=== PATIENT | female | born 1960 | race Two or more races ===

== ENCOUNTER 2017-10-19 09:42 | Inpatient (IN) | payer BC, OTHER ==
[~2017-10-19] VITALS: Ht 149.9 cm; Wt 75.1 kg
[~2017-10-19 09:42] MED LIST: LISI-285 PO
[2017-10-19] MEDS ORDERED: SODIUM CHLORIDE 0.9% 1,000 ML IVB ONE (09:48)
[2017-10-19] MEDS ORDERED: ONDANSETRON HCL 4 MG/2 ML VIAL IV ONE ×2 (10:00→10:15)
[2017-10-19] MEDS ORDERED: SODIUM CHLORIDE 0.9% 1,000 ML IV ONE (10:06)
[2017-10-19] MEDS ORDERED: MORPHINE SULF INJ 2 MG/ML SYRINGE 1ML IV ONE (10:15)
[2017-10-19 10:21] LABS: Basophils # (auto) 0.1 uL; Basophils % (auto) 0.9 % (0.0-2.0); Eosinophils # (auto) 0.2 uL; Eosinophils % (auto) 1.7 % (0.0-7.0); Hematocrit 45.8 % (36.0-46.0); Hemoglobin 15.7 g/dL (12.2-16.2); Lymphocytes # (auto) 2.4 uL; Lymphocytes % (auto) 23.6 % (10.0-50.0); Mean Corpuscular Hemoglobin 30.2 pg (28.0-32.0); Mean Corpuscular Hgb Conc. 34.4 g/dL (32.0-36.0); Mean Corpuscular Volume 87.9 fL (80.0-100.0); Mean Platelet Volume 8.6 fL (6.9-10.8); Monocytes # (auto) 0.7 uL; Monocytes % (auto) 6.7 % (0.0-12.0); Neutrophils # (auto) 6.9 uL; Neutrophils % (auto) 67.1 % (37.0-80.0); Nucleated Red Blood Cells % 0.1 %; Platelet Count (auto) 348 10^3/uL (140-450); Red Cell Distribution Width 13.8 % (11.8-14.3); White Blood Cell 10.3 10^3/uL (4.4-10.8)
[2017-10-19 10:50] LABS: Albumin 4.4 g/dL (3.4-5.0); Alkaline Phosphatase 99 U/L (45-117); Amylase 63 U/L (25-115); Anion Gap 8 (5-15); Aspartate Aminotransferase 43 U/L (15-37); BUN/Creatinine Ratio 36.4; Bilirubin, Total 0.9 mg/dL (0.2-1.0); Blood Urea Nitrogen 28 mg/dL (7-18); Calcium 9.1 mg/dL (8.5-10.1); Carbon Dioxide 26 mmol/L (21-32); Chloride 103 mmol/L (98-107); GFR African American 99 mL/min; GFR Non-African American 82 mL/min; Glucose 130 mg/dL (74-106); Potassium 3.7 mmol/L (3.5-5.1); Sodium 137 mmol/L (136-145); Total Protein 8.5 g/dL (6.4-8.2)
[2017-10-19 10:52] LABS: INR 0.98 (0.9-1.15); Partial Thromboplastin Time 24.3 sec (22.64-33.71); Prothrombin Time 10.7 sec (9.37-12.3)
[2017-10-19] MEDS ORDERED: IOHEXOL 300 MG/ML 100ML BOTTLE IJ ONE (10:59)
[2017-10-19] MEDS ORDERED: PROMETHAZINE HCL 25 MG/ML 1ML ONE (12:22)
[2017-10-19] MEDS ORDERED: PROMETHAZINE HCL 25 MG/ML 1ML IV ONE (12:30)
[2017-10-19] MEDS ORDERED: NALBUPHINE HCL 10 MG/1ml INJECTION IV ONE (12:45)
[2017-10-19] MEDS ORDERED: TEMAZEPAM 15 MG CAP PO PRN (13:15)
[2017-10-19] MEDS ORDERED: ACETAMINOPHEN 500 MG TAB PO PRN (13:15)
[2017-10-19] MEDS ORDERED: MORPHINE SULF INJ 2 MG/ML SYRINGE 1ML IV PRN (13:15)
[2017-10-19] MEDS ORDERED: LABETALOL HCL 5 MG/ML ML 20ML VIAL IV PRN (13:15)
[2017-10-19] MEDS ORDERED: NITROGLYCERIN 0.4 MG SL TAB SL PRN (13:15)
[2017-10-19] MEDS ORDERED: LISINOPRIL 5 MG TAB PO ONE (13:15)
[2017-10-19] MEDS ORDERED: PANTOPRAZOLE 40 MG/10 ML VIAL IV ONE (13:15)
[2017-10-19] MEDS: SODIUM CHLORIDE 0.9% 1,000 ML IV SCH ×2 (13:18→23:09)
[2017-10-19] MEDS ORDERED: amLODIPine BESYLATE 5 MG TAB PO ONE (13:30)
[2017-10-19] MEDS: LABETALOL HCL 5 MG/ML ML 20ML VIAL IV PRN ×2 (14:56→16:03)
[2017-10-19] MEDS ORDERED: LACTULOSE 20Gm/30ML SOLN PO PRN (15:45)
[2017-10-19] MEDS ORDERED: ENALAPRILAT 1.25 MG/ML-1ML VIAL IV SCH (16:45)
[2017-10-19] MEDS: ENALAPRILAT 1.25 MG/ML-1ML VIAL IV SCH ×2 (17:01→22:59)
[2017-10-19] MEDS: PROMETHAZINE HCL 25 MG/ML 1ML IV PRN ×2 (18:32→23:01)
[2017-10-19] MEDS: MORPHINE SULF INJ 2 MG/ML SYRINGE 1ML IV PRN ×2 (18:32→22:57)
[2017-10-19 20:00] VITALS: BP 171/92
[2017-10-19 22:00] VITALS: BP 171/92
[2017-10-20] MEDS: LABETALOL HCL 5 MG/ML ML 20ML VIAL IV PRN (02:17)
[2017-10-20] MEDS: PROMETHAZINE HCL 25 MG/ML 1ML IV PRN ×4 (02:55→18:41)
[2017-10-20] MEDS: MORPHINE SULF INJ 2 MG/ML SYRINGE 1ML IV PRN ×4 (02:55→18:41)
[2017-10-20 05:00] VITALS: BP 159/91
[2017-10-20] MEDS: ENALAPRILAT 1.25 MG/ML-1ML VIAL IV SCH ×4 (05:19→23:26)
[2017-10-20 06:42] LABS: Basophils # (auto) 0 uL; Basophils % (auto) 0.1 % (0.0-2.0); Eosinophils # (auto) 0 uL; Hematocrit 39.7 % (36.0-46.0); Hemoglobin 13.4 g/dL (12.2-16.2); Lymphocytes # (auto) 1.3 uL; Lymphocytes % (auto) 12.7 % (10.0-50.0); Mean Corpuscular Hemoglobin 30.2 pg (28.0-32.0); Mean Corpuscular Hgb Conc. 33.6 g/dL (32.0-36.0); Mean Corpuscular Volume 89.7 fL (80.0-100.0); Mean Platelet Volume 8.7 fL (6.9-10.8); Monocytes # (auto) 0.5 uL; Neutrophils # (auto) 8.6 uL; Neutrophils % (auto) 82.2 % (37.0-80.0); Nucleated Red Blood Cells % 0.1 %; Platelet Count (auto) 261 10^3/uL (140-450); Red Cell Distribution Width 13.2 % (11.8-14.3); White Blood Cell 10.5 10^3/uL (4.4-10.8)
[2017-10-20] MEDS ORDERED: MORPHINE SULFATE 4 MG/ML SYRG ONE (06:46)
[2017-10-20 07:01] LABS: Albumin 3.5 g/dL (3.4-5.0); Calcium 8.2 mg/dL (8.5-10.1); Potassium 3.1 mmol/L (3.5-5.1)
[2017-10-20 07:04] LABS: BUN/Creatinine Ratio 46.2
[2017-10-20 07:06] LABS: Bilirubin, Total 0.6 mg/dL (0.2-1.0); Total Protein 7.2 g/dL (6.4-8.2)
[2017-10-20 07:07] LABS: Cholesterol 155 mg/dL (< 200); HDL Cholesterol 45 mg/dL (40-59); LDL Cholesterol 113 mg/dL (< 100); Triglycerides 74 mg/dL (< 150)
[2017-10-20 08:48] VITALS: BP 149/79
[2017-10-20] MEDS: SODIUM CHLORIDE 0.9% 1,000 ML IV SCH ×2 (09:31→18:25)
[2017-10-20] MEDS: PANTOPRAZOLE 40 MG TAB PO SCH (09:32)
[2017-10-20] MEDS: amLODIPine BESYLATE 5 MG TAB PO SCH (09:32)
[2017-10-20] MEDS ORDERED: LISINOPRIL 5 MG TAB PO SCH (10:00)
[2017-10-20 10:48] LABS: Urine Bilirubin Negative (Negative); Urine Blood Negative /uL (Negative); Urine Color Yellow (Yellow); Urine Glucose Normal (Normal); Urine Ketone 2+ (Negative); Urine Mucus FEW (None Seen); Urine Nitrite Negative (Negative); Urine RBC 1 /hpf (0 - 4); Urine Squamous Epithelial Cell FEW /hpf (<5); Urine Urobilinogen Normal (Negative)
[2017-10-20 13:00] VITALS: BP 105/60
[2017-10-20] MEDS ORDERED: POTASSIUM CHL 20 Meq TABLET PO ONE (14:00)
[2017-10-20 16:27] VITALS: BP 129/71
[2017-10-20 20:00] VITALS: BP 114/86
[2017-10-20 22:00] VITALS: BP 114/86
[2017-10-21] VITALS (7 sets, daily range): BP systolic 110–183; BP diastolic 61–92
[2017-10-21] MEDS: SODIUM CHLORIDE 0.9% 1,000 ML IV SCH ×2 (04:54→15:23)
[2017-10-21] MEDS: ENALAPRILAT 1.25 MG/ML-1ML VIAL IV SCH ×5 (04:54→22:42)
[2017-10-21] MEDS: PROMETHAZINE HCL 25 MG/ML 1ML IV PRN ×4 (04:56→22:57)
[2017-10-21] MEDS: MORPHINE SULF INJ 2 MG/ML SYRINGE 1ML IV PRN ×4 (05:52→22:58)
[2017-10-21 06:12] LABS: BUN/Creatinine Ratio 21.2; Calcium 8.6 mg/dL (8.5-10.1); Potassium 3.1 mmol/L (3.5-5.1)
[2017-10-21] MEDS: LABETALOL HCL 5 MG/ML ML 20ML VIAL IV PRN ×3 (06:56→13:14)
[2017-10-21] MEDS: HYDROcodone-ACET 5/325MG TAB PO PRN (07:42)
[2017-10-21] MEDS: amLODIPine BESYLATE 5 MG TAB PO SCH (09:19)
[2017-10-21] MEDS: PANTOPRAZOLE 40 MG TAB PO SCH (09:19)
[2017-10-21] MEDS: LORazepam 0.5 MG TAB PO PRN (09:25)
[2017-10-22] MEDS: SODIUM CHLORIDE 0.9% 1,000 ML IV SCH (04:52)
[2017-10-22 05:00] VITALS: BP 98/35
[2017-10-22] MEDS: ENALAPRILAT 1.25 MG/ML-1ML VIAL IV SCH ×4 (05:00→22:05)
[2017-10-22] MEDS: PROMETHAZINE HCL 25 MG/ML 1ML IV PRN ×4 (06:43→23:20)
[2017-10-22 08:00] VITALS: BP 181/52
[2017-10-22 09:00] VITALS: BP 97/52
[2017-10-22] MEDS: PANTOPRAZOLE 40 MG TAB PO SCH ×2 (09:30→22:03)
[2017-10-22] MEDS: amLODIPine BESYLATE 5 MG TAB PO SCH (09:37)
[2017-10-22] MEDS: MORPHINE SULF INJ 2 MG/ML SYRINGE 1ML IV PRN ×2 (09:37→15:12)
[2017-10-22] MEDS: LORazepam 0.5 MG TAB PO PRN (10:58)
[2017-10-22] MEDS: SUCRALFATE 1 GM/10 ML ORAL SUSP PO SCH ×3 (11:45→22:04)
[2017-10-22] MEDS: HYDROcodone-ACET 5/325MG TAB PO PRN ×2 (11:45→18:38)
[2017-10-22] MEDS: LABETALOL HCL 5 MG/ML ML 20ML VIAL IV PRN (11:46)
[2017-10-22 12:30] VITALS: BP 181/102
[2017-10-22] MEDS: SOD CHL 0.9%/ KCL 20MEQ 1,000 ML IV SCH ×2 (14:35→21:45)
[2017-10-22 17:29] VITALS: BP 156/99
[2017-10-22 22:03] VITALS: BP 111/58
[2017-10-23] MEDS: ENALAPRILAT 1.25 MG/ML-1ML VIAL IV SCH ×4 (05:34→22:24)
[2017-10-23 05:44] VITALS: BP 131/64
[2017-10-23 05:49] LABS: Basophils # (auto) 0 uL; Basophils % (auto) 0.2 % (0.0-2.0); Eosinophils # (auto) 0.1 uL; Eosinophils % (auto) 0.6 % (0.0-7.0); Hematocrit 39.9 % (36.0-46.0); Hemoglobin 13.7 g/dL (12.2-16.2); Lymphocytes # (auto) 3.9 uL; Lymphocytes % (auto) 40.1 % (10.0-50.0); Mean Corpuscular Hemoglobin 30.4 pg (28.0-32.0); Mean Corpuscular Hgb Conc. 34.4 g/dL (32.0-36.0); Mean Corpuscular Volume 88.5 fL (80.0-100.0); Mean Platelet Volume 8.5 fL (6.9-10.8); Monocytes # (auto) 0.8 uL; Monocytes % (auto) 7.8 % (0.0-12.0); Neutrophils % (auto) 51.3 % (37.0-80.0); Nucleated Red Blood Cells % 0.1 %; Platelet Count (auto) 238 10^3/uL (140-450); Red Cell Distribution Width 13.1 % (11.8-14.3); White Blood Cell 9.7 10^3/uL (4.4-10.8)
[2017-10-23 05:54] LABS: INR 1.01 (0.9-1.15)
[2017-10-23 05:55] LABS: BUN/Creatinine Ratio 31.1; Calcium 8.1 mg/dL (8.5-10.1)
[2017-10-23 05:58] LABS: Potassium 2.6 mmol/L (3.5-5.1)
[2017-10-23] MEDS: SUCRALFATE 1 GM/10 ML ORAL SUSP PO SCH ×4 (06:47→22:24)
[2017-10-23] MEDS ORDERED: POTASSIUM CHL 20 Meq TABLET PO ONE (07:00)
[2017-10-23] MEDS: SOD CHL 0.9%/ KCL 20MEQ 1,000 ML IV SCH ×3 (07:58→19:53)
[2017-10-23] MEDS ORDERED: LIDOCAINE VISCOUS 2% 15ML UD ONE (08:40)
[2017-10-23] MEDS ORDERED: SODIUM CHLORIDE LOCK 10 ML ONE (08:40)
[2017-10-23] MEDS ORDERED: diphenhdrAMINE HCL 50 MG/1 ML VL ONE (08:41)
[2017-10-23] MEDS ORDERED: MIDAZOLAM HCL 5 MG/ML-1ML VIAL ONE (08:41)
[2017-10-23] MEDS ORDERED: fentaNYL CITRATE 100 MCG/2 ML VL ONE (08:41)
[2017-10-23 09:00] VITALS: BP 116/56
[2017-10-23] MEDS ORDERED: SUCR1SUS10 PO (09:07)
[2017-10-23] MEDS ORDERED: PANT40T PO (09:07)
[2017-10-23] MEDS: amLODIPine BESYLATE 5 MG TAB PO SCH (10:13)
[2017-10-23] MEDS: PANTOPRAZOLE 40 MG TAB PO SCH ×2 (10:13→22:23)
[2017-10-23] MEDS: HYDROcodone-ACET 5/325MG TAB PO PRN ×2 (11:54→17:52)
[2017-10-23] MEDS: PROMETHAZINE HCL 25 MG/ML 1ML IV PRN ×2 (11:54→19:45)
[2017-10-23 13:00] VITALS: BP 141/77
[2017-10-23] MEDS ORDERED: PROMETHAZINE HCL 25 MG/ML 1ML IV ONE (15:15)
[2017-10-23] MEDS: MORPHINE SULF INJ 2 MG/ML SYRINGE 1ML IV PRN ×2 (15:36→19:43)
[2017-10-23] MEDS: ONDANSETRON HCL 4 MG/2 ML VIAL IV PRN ×2 (17:52→22:23)
[2017-10-23 22:00] VITALS: BP 165/103
[2017-10-24] MEDS: PROMETHAZINE HCL 25 MG/ML 1ML IV PRN ×2 (04:42→12:57)
[2017-10-24] MEDS: ENALAPRILAT 1.25 MG/ML-1ML VIAL IV SCH ×2 (04:43→11:00)
[2017-10-24 05:00] VITALS: BP 133/72
[2017-10-24] MEDS: SUCRALFATE 1 GM/10 ML ORAL SUSP PO SCH ×2 (06:24→12:56)
[2017-10-24 07:49] LABS: Basophils # (auto) 0.1 uL; Basophils % (auto) 0.6 % (0.0-2.0); Eosinophils # (auto) 0.1 uL; Eosinophils % (auto) 1.2 % (0.0-7.0); Hematocrit 38.4 % (36.0-46.0); Hemoglobin 13.1 g/dL (12.2-16.2); Lymphocytes # (auto) 3.4 uL; Lymphocytes % (auto) 34.4 % (10.0-50.0); Mean Corpuscular Hemoglobin 29.9 pg (28.0-32.0); Mean Corpuscular Volume 87.8 fL (80.0-100.0); Monocytes # (auto) 0.8 uL; Monocytes % (auto) 7.8 % (0.0-12.0); Neutrophils # (auto) 5.6 uL; Nucleated Red Blood Cells % 0.1 %; Platelet Count (auto) 235 10^3/uL (140-450); Red Cell Distribution Width 13.2 % (11.8-14.3); White Blood Cell 9.9 10^3/uL (4.4-10.8)
[2017-10-24 08:00] VITALS: BP 109/66
[2017-10-24] MEDS ORDERED: LIDOCAINE VISCOUS 2% 15ML UD ONE (08:09)
[2017-10-24] MEDS ORDERED: SODIUM CHLORIDE LOCK 10 ML ONE (08:09)
[2017-10-24] MEDS ORDERED: diphenhdrAMINE HCL 50 MG/1 ML VL ONE (08:10)
[2017-10-24] MEDS ORDERED: FLUMAZENIL 0.1 MG/ML INJ 10ML MDV IV ONE (08:11)
[2017-10-24] MEDS ORDERED: NALOXONE HCL 0.4 MG/ML VIAL ONE (08:11)
[2017-10-24 08:16] LABS: BUN/Creatinine Ratio 26.1; Calcium 7.8 mg/dL (8.5-10.1)
[2017-10-24 09:00] VITALS: BP 109/66
[2017-10-24] MEDS ORDERED: POTASSIUM CHLORIDE 40 MEQ, LIDOCAINE 1% (LOCAL ANESTH.) 4 ML in SODIUM CHL 0.9% 100 ML IV ONE (09:15)
[2017-10-24] MEDS: PANTOPRAZOLE 40 MG TAB PO SCH (09:42)
[2017-10-24] MEDS: amLODIPine BESYLATE 5 MG TAB PO SCH (09:42)
[2017-10-24] MEDS: MIDAZOLAM HCL 5 MG/ML-1ML VIAL ONE ×2 (11:21→11:25)
[2017-10-24] MEDS: fentaNYL CITRATE 100 MCG/2 ML VL ONE ×2 (11:21→11:25)
[2017-10-24] MEDS: SOD CHL 0.9%/ KCL 20MEQ 1,000 ML IV SCH (13:45)
[2017-10-24 14:32] VITALS: BP 109/66
== END 2017-10-24 15:15 | disposition home or self-care (01) | DRG 392 ==
LOC: ER 09:42 → TELE 09:43 → TELE-WESTW 18:55
PROVIDERS: ADMIT Internal Medicine; ATTEND Internal Medicine
PROC: 0DB68ZX Excision of Stomach, Via Natural or Artificial Opening Endoscopic, Diagnostic (ICD-10-PCS; principal; 2017-10-24 11:20)
DX: K29.60 Other gastritis without bleeding (principal); E66.01 Morbid (severe) obesity due to excess calories; I16.9 Hypertensive crisis, unspecified; K52.9 Noninfective gastroenteritis and colitis, unspecified; R10.9 Unspecified abdominal pain; E87.5 Hyperkalemia; M54.17 Radiculopathy, lumbosacral region; K43.9 Ventral hernia without obstruction or gangrene; E87.6 Hypokalemia; K27.9 Peptic ulcer, site unspecified, unspecified as acute or chronic, without hemorrhage or perforation; I10 Essential (primary) hypertension; J45.909 Unspecified asthma, uncomplicated; K59.00 Constipation, unspecified; Z82.49 Family history of ischemic heart disease and other diseases of the circulatory system; Z68.33 Body mass index [BMI] 33.0-33.9, adult; Z90.49 Acquired absence of other specified parts of digestive tract
CPT/HCPCS: 36415; 43239; 71010; 71020; 74177; 80048; 80053; 80061; 81001; 82150; 82270; 82378; 82962; 83605; 83690; 84132; 84484; 84702; 85025; 85610; 85652; 85730; 86141; 96361; 96374; 96375; C9113; J2001; J2250; J2405

== ENCOUNTER 2018-02-20 10:32 | Emergency (ER) | payer BC, OTHER ==
[~2018-02-20] VITALS: Ht 149.9 cm; Wt 72.6 kg
[~2018-02-20 10:32] MED LIST changes: +PANT40T PO; +SUCR1SUS10 PO
[2018-02-20] MEDS ORDERED: ALBUTEROL SULF 2.5 MG/0.5ML(0.5%) NEB SOLN NEB ONE (10:45)
[2018-02-20] MEDS ORDERED: IPRATROPIUM BROM 0.5 MG/2.5ML INH SOL NEB ONE (10:45)
[2018-02-20] MEDS ORDERED: methylPREDNISolone SOD SUCC 125 MG/2 ML VL IM ONE (10:45)
[2018-02-20 11:20] VITALS: BP 150/91
== END 2018-02-20 11:19 | disposition home or self-care (01) ==
LOC: ER 10:32
DX: J45.909 Unspecified asthma, uncomplicated (principal); I10 Essential (primary) hypertension; Z98.51 Tubal ligation status; Z90.49 Acquired absence of other specified parts of digestive tract
CPT/HCPCS: 94640; 96372; 99283; J2930

== ENCOUNTER 2018-03-27 23:48 | Emergency (ER) | payer BC ==
[~2018-03-27] VITALS: Ht 149.9 cm; Wt 72.6 kg
[2018-03-28] VITALS: BP 188/94
[2018-03-28] MEDS ORDERED: ALBUTEROL SULF 2.5 MG/0.5ML(0.5%) NEB SOLN NEB ONE (00:15)
[2018-03-28] MEDS ORDERED: IPRATROPIUM BROM 0.5 MG/2.5ML INH SOL NEB ONE (00:15)
== END 2018-03-28 00:43 | disposition home or self-care (01) ==
LOC: ER 23:50
DX: J45.901 Unspecified asthma with (acute) exacerbation (principal); I10 Essential (primary) hypertension; Z79.899 Other long term (current) drug therapy; Z98.51 Tubal ligation status
CPT/HCPCS: 94640

== ENCOUNTER → 2018-07-19 | Outpatient (CLI) | payer BC ==
[2018-07-19 15:50] LABS: Basophils # (auto) 0 uL; Basophils % (auto) 0.5 % (0.0-2.0); Eosinophils # (auto) 0.4 uL; Eosinophils % (auto) 4.7 % (0.0-7.0); Hemoglobin 14.8 g/dL (12.2-16.2); Lymphocytes # (auto) 2.1 uL; Lymphocytes % (auto) 24.9 % (10.0-50.0); Mean Corpuscular Hemoglobin 29.6 pg (28.0-32.0); Mean Corpuscular Hgb Conc. 33.6 g/dL (32.0-36.0); Mean Corpuscular Volume 88.1 fL (80.0-100.0); Monocytes # (auto) 0.5 uL; Monocytes % (auto) 5.7 % (0.0-12.0); Neutrophils # (auto) 5.4 uL; Neutrophils % (auto) 64.2 % (37.0-80.0); Platelet Count (auto) 297 10^3/uL (140-450); Red Cell Distribution Width 13.2 % (11.8-14.3); White Blood Cell 8.4 10^3/uL (4.4-10.8)
[2018-07-19 16:12] LABS: Urine Bacteria NONE SEEN /hpf (None Seen); Urine Blood Negative /uL (Negative); Urine Mucus FEW (None Seen); Urine Specific Gravity 1.014 (1.001-1.035); Urine WBC 1 /hpf (0 - 5)
[2018-07-19 16:38] LABS: Alanine Aminotransferase 41 U/L (13-56); Albumin 3.9 g/dL (3.4-5.0); Alkaline Phosphatase 117 U/L (45-117); Anion Gap 5 (5-15); Aspartate Aminotransferase 21 U/L (15-37); BUN/Creatinine Ratio 22.4; Bilirubin, Total 0.6 mg/dL (0.2-1.0); Blood Urea Nitrogen 13 mg/dL (7-18); Calcium 8.5 mg/dL (8.5-10.1); Carbon Dioxide 27 mmol/L (21-32); Chloride 105 mmol/L (98-107); Creatine Kinase IFCC 167 U/L (26-192); GFR African American 137 mL/min; GFR Non-African American 113 mL/min; Glucose 92 mg/dL (74-106); Potassium 3.5 mmol/L (3.5-5.1); Sodium 137 mmol/L (136-145); Total Protein 7.8 g/dL (6.4-8.2)
== END | disposition home or self-care (01) ==
LOC: LAB 14:48
PROVIDERS: ATTEND Internal Medicine
DX: I10 Essential (primary) hypertension (principal); J45.901 Unspecified asthma with (acute) exacerbation; C74.00 Malignant neoplasm of cortex of unspecified adrenal gland
CPT/HCPCS: 36415; 80053; 81001; 82043; 82088; 82384; 82550; 83835; 83880; 84484; 85025; 85379; 85652

== ENCOUNTER 2018-11-06 17:11 | Emergency (ER) | payer BC, OTHER ==
[~2018-11-06] VITALS: Ht 149.9 cm; Wt 72.6 kg
[2018-11-06] MEDS ORDERED: PROMETHAZINE W/CODEINE 5 ML ORAL SYRUP PO ONE (17:45)
[2018-11-06] MEDS ORDERED: cefTRIAXone SOD 1,000 MG VL IM ONE (17:45)
[2018-11-06] MEDS ORDERED: ALBUTEROL SULF 2.5 MG/0.5ML(0.5%) NEB SOLN NEB ONE (17:45)
[2018-11-06] MEDS ORDERED: methylPREDNISolone SOD SUCC 125 MG/2 ML VL IV ONE (17:45)
[2018-11-06] MEDS ORDERED: IPRATROPIUM BROM 0.5 MG/2.5ML INH SOL NEB ONE (17:45)
[2018-11-06 18:44] VITALS: BP 112/87
== END 2018-11-06 19:31 | disposition home or self-care (01) ==
LOC: ER 17:11
DX: J45.901 Unspecified asthma with (acute) exacerbation (principal); I10 Essential (primary) hypertension; Z90.49 Acquired absence of other specified parts of digestive tract; Z98.51 Tubal ligation status
CPT/HCPCS: 71045; 93005; 94640; 96372; 96374; 99283; J0696; J2930; J7611; J7644

== ENCOUNTER → 2019-03-28 | Outpatient (CLI) | payer BC, OTHER | END | disposition home or self-care (01) | LOC: XYW 09:57 | PROVIDERS: ATTEND Internal Medicine | DX: I07.1 Rheumatic tricuspid insufficiency (principal) | CPT/HCPCS: 93306 ==

== ENCOUNTER → 2019-04-22 | Outpatient (CLI) | payer BC, OTHER ==
[~2019-04-22] MED LIST changes: +ALBUTEROL SULF 2.5 MG/0.5ML(0.5%) NEB SOLN ONE
== END | disposition home or self-care (01) ==
LOC: RT 04-18 09:15
PROVIDERS: ATTEND Internal Medicine Pulmonary Disease
DX: J44.9 Chronic obstructive pulmonary disease, unspecified (principal); J45.909 Unspecified asthma, uncomplicated
CPT/HCPCS: 94060; J7611

== ENCOUNTER 2019-11-28 10:45 | Emergency (ER) | payer BC, OTHER ==
[~2019-11-28] VITALS: Ht 149.9 cm; Wt 73.9 kg
[~2019-11-28 10:45] MED LIST changes: -ALBUTEROL SULF 2.5 MG/0.5ML(0.5%) NEB SOLN ONE
[2019-11-28] MEDS ORDERED: SODIUM CHLORIDE 0.9% 1,000 ML IV ONE (11:30)
[2019-11-28 11:34] LABS: Urine Bacteria NONE SEEN /hpf (None Seen); Urine Blood Negative /uL (Negative); Urine Mucus FEW (None Seen); Urine Specific Gravity 1.024 (1.001-1.035); Urine WBC 30 /hpf (0 - 5)
[2019-11-28 11:49] LABS: Basophils # (auto) 0.1 uL; Basophils % (auto) 0.6 % (0.0-2.0); Eosinophils # (auto) 0.2 uL; Eosinophils % (auto) 1.8 % (0.0-7.0); Hematocrit 42.5 % (36.0-46.0); Hemoglobin 14.2 g/dL (12.2-16.2); Lymphocytes # (auto) 2.5 uL; Lymphocytes % (auto) 26.5 % (10.0-50.0); Mean Corpuscular Hemoglobin 29.4 pg (28.0-32.0); Mean Corpuscular Hgb Conc. 33.4 g/dL (32.0-36.0); Monocytes # (auto) 0.7 uL; Neutrophils # (auto) 6.1 uL; Neutrophils % (auto) 64.1 % (37.0-80.0); Platelet Count (auto) 282 10^3/uL (140-450); Red Blood Cells 4.83 10^6/uL (4.0-5.20); Red Cell Distribution Width 12.7 % (11.8-14.3); White Blood Cell 9.5 10^3/uL (4.4-10.8)
[2019-11-28] MEDS ORDERED: ONDANSETRON HCL 4 MG/2 ML VIAL IV ONE (12:00)
[2019-11-28] MEDS ORDERED: KETOROLAC TROMETH 30 MG/ML 1ML VIAL IV ONE (12:00)
[2019-11-28] MEDS ORDERED: FAMOTIDINE (10MG/ML) 2ML VL IV ONE (12:00)
[2019-11-28 12:12] LABS: Albumin 3.5 g/dL (3.4-5.0); BUN/Creatinine Ratio 35.3; Calcium 8.7 mg/dL (8.5-10.1); Potassium 3.4 mmol/L (3.5-5.1)
[2019-11-28 12:15] LABS: Bilirubin, Total 0.5 mg/dL (0.2-1.0)
[2019-11-28] MEDS ORDERED: cefTRIAXone 1GM/50ML D5W 50 ML IV ONE (12:15)
[2019-11-28 12:29] VITALS: BP 124/61
[2019-11-28] MEDS ORDERED: SODIUM CHLORIDE 0.9% 500 ML IV ONE (12:30)
== END 2019-11-28 13:20 | disposition home or self-care (01) ==
LOC: ER 10:45
DX: K52.9 Noninfective gastroenteritis and colitis, unspecified (principal); N39.0 Urinary tract infection, site not specified; K42.9 Umbilical hernia without obstruction or gangrene; I10 Essential (primary) hypertension; J45.909 Unspecified asthma, uncomplicated
CPT/HCPCS: 36415; 74176; 80053; 81001; 83690; 85025; 96361; 96365; 96375; 99284; J0696; J1885; J2405; J3490; J7030

== ENCOUNTER 2019-12-10 05:10 | Inpatient (IN) | payer BC ==
[~2019-12-10] VITALS: Ht 149.9 cm; Wt 74.1 kg
[2019-12-10] MEDS ORDERED: MORPHINE SULFATE 4 MG/ML SYR/VIAL IV ONE ×2 (05:45→07:15)
[2019-12-10] MEDS ORDERED: ONDANSETRON HCL 4 MG/2 ML VIAL IV ONE (05:45)
[2019-12-10] MEDS ORDERED: SODIUM CHLORIDE 0.9% 1,000 ML IV ONE (05:45)
[2019-12-10 06:03] LABS: Basophils # (auto) 0.1 uL; Basophils % (auto) 0.5 % (0.0-2.0); Eosinophils # (auto) 0.4 uL; Eosinophils % (auto) 3.1 % (0.0-7.0); Hematocrit 44.1 % (36.0-46.0); Hemoglobin 15.2 g/dL (12.2-16.2); Lymphocytes # (auto) 2.4 uL; Lymphocytes % (auto) 20.5 % (10.0-50.0); Mean Corpuscular Hemoglobin 29.9 pg (28.0-32.0); Mean Corpuscular Hgb Conc. 34.4 g/dL (32.0-36.0); Monocytes # (auto) 0.8 uL; Monocytes % (auto) 6.6 % (0.0-12.0); Neutrophils % (auto) 69.3 % (37.0-80.0); Nucleated Red Blood Cells % 0.1 %; Platelet Count (auto) 335 10^3/uL (140-450); Red Blood Cells 5.07 10^6/uL (4.0-5.20); Red Cell Distribution Width 13.1 % (11.8-14.3); White Blood Cell 11.5 10^3/uL (4.4-10.8)
[2019-12-10 06:22] LABS: Chloride 100 mmol/L (98-107); Potassium 3.6 mmol/L (3.5-5.1); Sodium 135 mmol/L (136-145)
[2019-12-10 06:32] LABS: Alanine Aminotransferase 45 U/L (13-56); Albumin 4.1 g/dL (3.4-5.0); Alkaline Phosphatase 145 U/L (45-117); Amylase 86 U/L (25-115); Anion Gap 7 (5-15); Aspartate Aminotransferase 24 U/L (15-37); BUN/Creatinine Ratio 41.4; Bilirubin, Total 0.4 mg/dL (0.2-1.0); Blood Urea Nitrogen 29 mg/dL (7-18); Calcium 9.1 mg/dL (8.5-10.1); Carbon Dioxide 28 mmol/L (21-32); GFR African American 110 mL/min; GFR Non-African American 91 mL/min; Glucose 135 mg/dL (74-106); Lipase 166 U/L (73-393); Total Protein 8.1 g/dL (6.4-8.2)
[2019-12-10] MEDS ORDERED: PROCHLORPERAZINE EDISYLATE 5 MG/ML 2ML VIAL IV ONE (09:45)
[2019-12-10] MEDS ORDERED: MORPHINE SULF INJ 2 MG/ML SYRINGE 1ML IV PRN (10:15)
[2019-12-10] MEDS ORDERED: hydrALAZINE HCL 20 MG/ML VL IV PRN (10:15)
[2019-12-10] MEDS ORDERED: NITROGLYCERIN 0.4 MG SL TAB SL PRN (10:15)
[2019-12-10] MEDS: SODIUM CHLORIDE 0.9% 1,000 ML IV SCH ×2 (10:46→22:07)
--- NOTE | 2019-12-10 11:11 | NUR ---
Telemetry admit from ER [facility] admitted to Telemetry unit after SBAR received. Patient oriented to ROMULO DEL TORO, primary RN, unit, room, bed, and unit policies regarding patient care and visiting hours. Patient now on continuous telemetry monitoring, tele box # 31 and telemetry reading on arrival to unit is ST103. Patient weighed by bedscale and encouraged to call if they need something. All questions and concerns addressed, patient verbalized understanding. Note: []
[2019-12-10 11:22] LABS: Urine Bacteria NONE SEEN /hpf (None Seen); Urine Blood Negative /uL (Negative); Urine Specific Gravity 1.022 (1.001-1.035); Urine WBC 1 /hpf (0 - 5)
[2019-12-10] MEDS: HYDROmorphone HCL 2 MG/ML VL IV PRN ×2 (11:23→18:26)
[2019-12-10 12:00] VITALS: BP 172/100
[2019-12-10 13:30] VITALS: BP 109/53
[2019-12-10 14:35] VITALS: BP 172/100
[2019-12-10] MEDS: ONDANSETRON HCL 4 MG/2 ML VIAL IV PRN ×2 (15:06→19:18)
--- NOTE | 2019-12-10 15:36 | NUR ---
BP Recheck BP 109/53 after pain medication. Addendum: 12/10/19 at 1537 by ROMULO DEL TORO RN Note meant for 3311
[2019-12-10] MEDS ORDERED: HCTZ25T PO (15:53)
[2019-12-10] MEDS ORDERED: ALBUAER3 IN (15:53)
[2019-12-10 16:11] LABS: INR 0.97 (0.9-1.15)
[2019-12-10 16:59] VITALS: BP 126/74
[2019-12-10] MEDS: SUCRALFATE 1 GM/10 ML ORAL SUSP PO SCH ×2 (18:26→21:59)
--- NOTE | 2019-12-10 19:40 | NUR ---
Opening Shift Note Assumed care of patient, awake and alert x4. No S/S of distress/SOB or pain. Family is at bedside. Call light is within reach, side rails up x2, bed is in lowest position, bed alarm is on. Instructed on POC and to call for assist PRN, will continue to monitor for changes Q1hr and PRN.
[2019-12-10 22:00] VITALS: BP 128/73
[2019-12-10] MEDS: LISINOPRIL 20 MG TAB PO SCH (22:00)
[2019-12-10] MEDS: PANTOPRAZOLE 40 MG TAB PO SCH (22:00)
--- NOTE | 2019-12-10 22:08 | NUR ---
Paged hospitalist. Patient is complaining of a headache, no pain medications available.
--- NOTE | 2019-12-10 23:16 | NUR ---
Hospitalist called back, new order received for Tylenol 650 mg q6h PO. Will carry out and continue to monitor.
[2019-12-11] MEDS: ACETAMINOPHEN 325 MG TAB PO PRN ×2 (01:55→10:21)
[2019-12-11 04:55] VITALS: BP 115/70
[2019-12-11] MEDS: SUCRALFATE 1 GM/10 ML ORAL SUSP PO SCH ×2 (05:57→11:30)
[2019-12-11] MEDS: SODIUM CHLORIDE 0.9% 1,000 ML IV SCH (05:58)
--- NOTE | 2019-12-11 08:00 | NUR ---
Opening Shift Note Assumed care of patient, awake, alert and oriented X4. No S/S of distress/SOB or pain. Tele# 31, sinus rhythm @ 83 bpm. IV to right antecubital, 18 gauge, patent and infusing 0.9% NS @ 100 ml/hr. Instructed on POC and to call for assist PRN, verbalized understanding. Bed locked, in lowest position, call light within reach, will continue to monitor for changes Q1hr and PRN.
[2019-12-11] MEDS ORDERED: LIDOCAINE VISCOUS 2% 15ML UD ONE (08:14)
[2019-12-11] MEDS ORDERED: SODIUM CHLORIDE LOCK 10 ML ONE (08:14)
[2019-12-11] MEDS ORDERED: diphenhdrAMINE HCL 50 MG/1 ML VL ONE (08:15)
[2019-12-11 09:00] VITALS: BP 135/66
[2019-12-11] MEDS: LISINOPRIL 20 MG TAB PO SCH (10:00)
[2019-12-11] MEDS: PANTOPRAZOLE 40 MG TAB PO SCH (10:00)
[2019-12-11] MEDS ORDERED: PANTOPRAZOLE 40 MG TAB PO SCH (10:00)
--- NOTE | 2019-12-11 10:15 | NUR ---
ROUNDS Dr aCll at bedside for rounds, new orders received and followed through. Patient updated on plan of care, verbalized understanding.
[2019-12-11] MEDS ORDERED: IPRATROPIUM BROM 0.5 MG/2.5ML INH SOL NEB PRN (10:30)
[2019-12-11] MEDS ORDERED: ALBUTEROL SULF 2.5 MG/0.5ML(0.5%) NEB SOLN NEB PRN (10:30)
--- NOTE | 2019-12-11 11:47 | NUR ---
Patient taken to GI lab via bed, no distress noted upon departure.
[2019-12-11] MEDS: MIDAZOLAM HCL 5 MG/ML-1ML VIAL ONE ×2 (11:51→11:55)
[2019-12-11] MEDS: fentaNYL CITRATE 100 MCG/2 ML VL ONE ×2 (11:51→11:55)
--- NOTE | 2019-12-11 13:00 | NUR ---
Noon vitals not obtained. Pt is not in room at this time .
[2019-12-11 13:32] VITALS: BP 116/62
[2019-12-11] MEDS ORDERED: PANT40T PO (14:48)
[2019-12-11] MEDS ORDERED: SUCR1TAB38 OR (15:21)
[2019-12-11 16:11] VITALS: BP 116/58
--- NOTE | 2019-12-11 17:00 | NUR ---
Discharge instructions given as ordered. Encourage to follow up with PMD as instructed. All questions and concerns addressed. Patient verbalized understanding. IV removed with catheter intact, pressure dressing applied. Telemetry unit returned to ICU. Patient ambulated to vehicle with all personal belongings. No distress noted at time of departure.
== END 2019-12-11 17:00 | disposition home or self-care (01) | DRG 392 ==
LOC: ER 05:14 → TELE-CENTR 05:15
PROVIDERS: ADMIT Nurse Practitioner Acute Care; ATTEND Internal Medicine
PROC: 0DB68ZX Excision of Stomach, Via Natural or Artificial Opening Endoscopic, Diagnostic (ICD-10-PCS; principal; 2019-12-11 11:45)
DX: K29.80 Duodenitis without bleeding (principal); K29.70 Gastritis, unspecified, without bleeding; K44.9 Diaphragmatic hernia without obstruction or gangrene; J45.909 Unspecified asthma, uncomplicated; E78.5 Hyperlipidemia, unspecified; I10 Essential (primary) hypertension; E66.9 Obesity, unspecified; Z68.33 Body mass index [BMI] 33.0-33.9, adult; Z90.49 Acquired absence of other specified parts of digestive tract; Z80.9 Family history of malignant neoplasm, unspecified; Z82.49 Family history of ischemic heart disease and other diseases of the circulatory system
CPT/HCPCS: 36415; 71045; 74176; 80053; 81001; 82150; 83605; 83690; 84484; 85025; 85610; 93005; 96361; 96374; 96375; 96376; G0378; J2250; J2405

== ENCOUNTER 2019-12-20 10:24 | Inpatient (IN) | payer BC ==
[~2019-12-20] VITALS: Ht 149.9 cm; Wt 73.9 kg
[~2019-12-20 10:24] MED LIST changes: +ALBUAER3 IN; +HCTZ25T PO; -SUCR1SUS10 PO; +SUCR1TAB38 OR
[2019-12-20 11:26] LABS: Basophils # (auto) 0.1 uL; Basophils % (auto) 0.8 % (0.0-2.0); Eosinophils # (auto) 0.1 uL; Eosinophils % (auto) 0.6 % (0.0-7.0); Hematocrit 48.2 % (36.0-46.0); Hemoglobin 16.3 g/dL (12.2-16.2); Lymphocytes # (auto) 2.8 uL; Mean Corpuscular Hemoglobin 29.5 pg (28.0-32.0); Mean Corpuscular Hgb Conc. 33.9 g/dL (32.0-36.0); Monocytes # (auto) 0.7 uL; Neutrophils # (auto) 10.3 uL; Neutrophils % (auto) 73.6 % (37.0-80.0); Nucleated Red Blood Cells % 0.1 %; Platelet Count (auto) 428 10^3/uL (140-450); Red Blood Cells 5.54 10^6/uL (4.0-5.20)
[2019-12-20] MEDS ORDERED: SODIUM CHLORIDE 0.9% 1,000 ML IVB ONE (11:39)
[2019-12-20] MEDS ORDERED: PROMETHAZINE HCL 25 MG/ML 1ML IV PRN (11:45)
[2019-12-20] MEDS ORDERED: MORPHINE SULF INJ 2 MG/ML SYRINGE 1ML IV ONE (11:45)
[2019-12-20] MEDS ORDERED: PANTOPRAZOLE 40 MG/10 ML VIAL INJ IV ONE (11:45)
[2019-12-20 11:47] LABS: Albumin 4.3 g/dL (3.4-5.0); Calcium 9.7 mg/dL (8.5-10.1); Potassium 3.5 mmol/L (3.5-5.1)
[2019-12-20 11:50] LABS: BUN/Creatinine Ratio 27.4; Bilirubin, Total 0.6 mg/dL (0.2-1.0); Total Protein 8.5 g/dL (6.4-8.2)
[2019-12-20 12:12] LABS: Magnesium 2.8 mg/dL (1.6-2.6)
[2019-12-20] MEDS: SODIUM CHLORIDE 0.9% 1,000 ML IV SCH (14:33)
[2019-12-20] MEDS ORDERED: NALBUPHINE HCL 10 MG/1ml INJECTION IV PRN (14:45)
[2019-12-20] MEDS ORDERED: NITROGLYCERIN 0.4 MG SL TAB SL PRN (14:45)
[2019-12-20] MEDS ORDERED: MORPHINE SULF INJ 2 MG/ML SYRINGE 1ML IV PRN (14:45)
[2019-12-20] MEDS ORDERED: ACETAMINOPHEN 500 MG TAB PO PRN (14:45)
[2019-12-20] MEDS: PROMETHAZINE HCL 25 MG/ML 1ML IV PRN (15:08)
--- NOTE | 2019-12-20 17:45 | NUR ---
Telemetry admit from ER [facility] HACKETT admitted to Telemetry unit after SBAR received. Patient oriented to Gladys Zarate RN primary RN, unit, room, bed, and unit policies regarding patient care and visiting hours. Patient is alert and oriented x4. Respirations are even and unlabored. No S/S SOB noted. IV to left wrist is patent and intact. Patient now on continuous telemetry monitoring, tele box #27 and telemetry reading on arrival to unit is sinus tachycardia . Encouraged to call if they need something. Bed is low, locked with 2x side rails up. Call light is within reach. All questions and concerns addressed, patient verbalized understanding. Note:
[2019-12-20] MEDS: METOPROLOL TARTRATE 25 MG TAB PO SCH ×2 (18:43→22:00)
[2019-12-20] MEDS: SUCRALFATE 1 GM TAB PO SCH ×2 (18:43→22:24)
--- NOTE | 2019-12-20 18:43 | NUR ---
B/P Patient was sent up from ER and B/P was assessed at 1835 BP: 172/101 HR:111 RR:21. Called and received orders from Shon for PRN B/P medications.
--- NOTE | 2019-12-20 19:05 | NUR ---
Nubain/Pain Medication Per pharmacy Nubain is on backorder. Information relayed to MAGALI DE SANTIAGO.
[2019-12-20] MEDS: traMADol HCL 50 MG TAB PO PRN (19:09)
[2019-12-20] MEDS: LABETALOL HCL 5 MG/ML 4ML SYRINGE IV PRN (19:36)
[2019-12-20 20:00] VITALS: BP 172/101
[2019-12-20] MEDS: MORPHINE SULF INJ 2 MG/ML SYRINGE 1ML IV PRN (21:24)
[2019-12-20 22:00] VITALS: BP 168/114
[2019-12-20] MEDS ORDERED: METOCLOPRAMIDE HCL 5MG/ml INJ 2ml VIAL IV SCH ×3 (22:00)
[2019-12-20] MEDS: PANTOPRAZOLE 40 MG TAB PO SCH (22:24)
[2019-12-20] MEDS: METOCLOPRAMIDE HCL 5MG/ml INJ 2ml VIAL IV SCH (22:25)
[2019-12-21] MEDS: SODIUM CHLORIDE 0.9% 1,000 ML IV SCH ×4 (00:55→21:53)
[2019-12-21] MEDS: PROMETHAZINE HCL 25 MG/ML 1ML IV PRN ×4 (04:30→16:50)
[2019-12-21] MEDS: MORPHINE SULF INJ 2 MG/ML SYRINGE 1ML IV PRN ×4 (04:38→16:49)
[2019-12-21] MEDS: LABETALOL HCL 5 MG/ML 4ML SYRINGE IV PRN ×4 (04:40→17:00)
[2019-12-21 05:00] VITALS: BP 171/93
[2019-12-21] MEDS: METOCLOPRAMIDE HCL 5MG/ml INJ 2ml VIAL IV SCH ×3 (06:00→21:52)
[2019-12-21] MEDS: SUCRALFATE 1 GM TAB PO SCH ×4 (06:58→21:58)
[2019-12-21] MEDS: HYOSCYAMINE SULF 0.125 MG ODT TAB PO PRN ×2 (07:04→12:43)
--- NOTE | 2019-12-21 07:06 | NUR ---
Just gave labetelol again for BP 188/99. Bilateral upper arms takem Addendum: 12/21/19 at 0709 by ANA WASSERMAN RN Bilateral upper arms both high. patient continues to vomit and be nauseated. Gave PRN medicine per order. Next phenergan due at 0830. Will endorse to nurseTripp Oconnor MD regarding BP. Awaiting return call. Patient has been nauseated and in pain throughout entire night along with elevated BP.
--- NOTE | 2019-12-21 07:30 | NUR ---
Opening Shift Note Assumed care of patient, who is alert and oriented x4. Respirations are even and unlabored. No S/S of distress/SOB. Patient is reporting 10/10 pain on adult pain scale. Pain is sharp in nature and patient states that she has been in pain most of the night. Will medicate per MD order. IV to left wrist is asymptomatic, patent and intact. Bed is low, locked with 2x side rails up. Call light is within reach. Instructed on POC and to call for assist PRN, will continue to monitor for changes Q1hr and PRN.
[2019-12-21] MEDS ORDERED: hydrALAZINE HCL 25 MG TAB PO ONE (08:00)
--- NOTE | 2019-12-21 08:01 | NUR ---
Call back from Hospitalist Updated MD Cleo) on patient's blood pressure. Upon reassessment B/P 188/99. Received new orders for Hydralazine 50mg PO once. Will carry out orders and continue care.
[2019-12-21 09:00] VITALS: BP 175/100
[2019-12-21] MEDS: PANTOPRAZOLE 40 MG TAB PO SCH ×2 (10:30→21:51)
[2019-12-21] MEDS: METOPROLOL TARTRATE 25 MG TAB PO SCH ×2 (10:30→21:52)
--- NOTE | 2019-12-21 11:30 | NUR ---
Reassessed BP Reassessed BP after giving ordered bp medication. Bp:156/87 HR:99. Will continue to monitor.
--- NOTE | 2019-12-21 12:20 | NUR ---
Dr. Osman at bedside. Updating patient on POC
[2019-12-21 13:00] VITALS: BP 172/82
[2019-12-21] MEDS ORDERED: cefTRIAXone 1GM/50ML D5W 50 ML IV ONE (14:15)
[2019-12-21] MEDS: traMADol HCL 50 MG TAB PO PRN ×2 (14:39→23:30)
--- NOTE | 2019-12-21 16:50 | NUR ---
Home medications Paged and spoke with Dr. Minal Rivas regarding patient's bp. This nurse informed MD of patient's current BP medications. New orders received to start Lisinopril. Read back and verified orders. (SEE EMAR)
--- NOTE | 2019-12-21 17:00 | NUR ---
Elevated BP Patient's BP was 174/88 HR:102. Will administer Labetalol per MD order. Will continue to monitor.
[2019-12-21 17:11] VITALS: BP 174/88
[2019-12-21] MEDS: LISINOPRIL 10 MG TAB PO SCH ×2 (17:18→21:53)
[2019-12-21] MEDS ORDERED: LISI10TA6 PO (17:52)
[2019-12-21] MEDS ORDERED: CHLO25TA22 PO ×2 (17:52→17:53)
[2019-12-21] MEDS ORDERED: PROM25TA5 PO (17:52)
[2019-12-21] MEDS ORDERED: DICY20TA66 PO (17:53)
--- NOTE | 2019-12-21 17:58 | NUR ---
MED REC Medication Reconciliation done and pharmacy has been documented.
[2019-12-21 18:00] VITALS: BP 125/78
--- NOTE | 2019-12-21 18:00 | NUR ---
Reassessed BP Following administration of Labetalol per MD order. BP: 125/78 HR:86. Will continue to monitor.
[2019-12-21] MEDS: metroNIDAZOLE 500MG/100ML 100 ML IV SCH (21:58)
[2019-12-21 22:00] VITALS: BP 121/58
[2019-12-22 05:00] VITALS: BP 120/66
[2019-12-22] MEDS: metroNIDAZOLE 500MG/100ML 100 ML IV SCH ×3 (06:22→21:56)
[2019-12-22] MEDS: METOCLOPRAMIDE HCL 5MG/ml INJ 2ml VIAL IV SCH (06:22)
[2019-12-22] MEDS: SODIUM CHLORIDE 0.9% 1,000 ML IV SCH ×2 (06:23→14:30)
[2019-12-22] MEDS: SUCRALFATE 1 GM TAB PO SCH ×4 (06:23→21:56)
--- NOTE | 2019-12-22 07:20 | NUR ---
Opening Shift Note Assumed care of patient, who is alert and oriented x4. No S/S of distress/SOB or pain. IV to left wrist is patent and intact. Patient is currently on a clear liquid diet and stated that she feels much better and would like to advance her diet. This nurse will relay message to MD. Bed is low, locked with 2x side rails up. Call light is within reach. Instructed on POC and to call for assist PRN, will continue to monitor for changes Q1hr and PRN.
[2019-12-22 08:17] LABS: Basophils # (auto) 0.1 uL; Basophils % (auto) 0.5 % (0.0-2.0); Eosinophils # (auto) 0.1 uL; Eosinophils % (auto) 0.8 % (0.0-7.0); Hematocrit 38.2 % (36.0-46.0); Lymphocytes # (auto) 3.5 uL; Lymphocytes % (auto) 34.5 % (10.0-50.0); Mean Corpuscular Hemoglobin 29.7 pg (28.0-32.0); Mean Corpuscular Hgb Conc. 34.1 g/dL (32.0-36.0); Mean Corpuscular Volume 87.3 fL (80.0-100.0); Monocytes # (auto) 0.7 uL; Monocytes % (auto) 7.3 % (0.0-12.0); Neutrophils # (auto) 5.8 uL; Neutrophils % (auto) 56.9 % (37.0-80.0); Nucleated Red Blood Cells % 0.1 %; Platelet Count (auto) 267 10^3/uL (140-450); Red Blood Cells 4.38 10^6/uL (4.0-5.20); Red Cell Distribution Width 12.6 % (11.8-14.3); White Blood Cell 10.1 10^3/uL (4.4-10.8)
[2019-12-22] MEDS: cefTRIAXone 1GM/50ML D5W 50 ML IV SCH (08:33)
[2019-12-22 09:20] VITALS: BP 95/51
--- NOTE | 2019-12-22 10:20 | NUR ---
Soft Diet Advanced patient diet. Patient consumed 100% of food on tray. Tolerated well. No reports of nausea/vomiting.
[2019-12-22] MEDS: PANTOPRAZOLE 40 MG TAB PO SCH ×2 (10:31→21:56)
[2019-12-22] MEDS: METOPROLOL TARTRATE 25 MG TAB PO SCH ×2 (10:31→21:58)
[2019-12-22] MEDS: LISINOPRIL 10 MG TAB PO SCH ×2 (10:32→21:58)
[2019-12-22] MEDS ORDERED: METOCLOPRAMIDE HCL 5MG/ml INJ 2ml VIAL IV PRN (12:15)
[2019-12-22 13:00] VITALS: BP 105/57
[2019-12-22 17:00] VITALS: BP 120/54
--- NOTE | 2019-12-22 19:30 | NUR ---
Opening Shift Note Assumed care of patient, awake and alert. No S/S of distress/SOB or pain. Insructed on POC and to callfor assist PRN, will continue to monitor for changes Q1hr and PRN. Family at bedside. Fall and safety precautions in place. Call light within reach.
--- NOTE | 2019-12-22 20:00 | NUR ---
FAMILY Informed family visiting hours are over at 2000 and will restart again at 0800 tomorrow morning. Family verbalized understanding and agreed to leave
[2019-12-22] MEDS: PROMETHAZINE HCL 25 MG/ML 1ML IV PRN (21:58)
[2019-12-22 22:00] VITALS: BP 137/67
[2019-12-23] MEDS: SODIUM CHLORIDE 0.9% 1,000 ML IV SCH ×2 (00:14→05:57)
[2019-12-23] MEDS: traMADol HCL 50 MG TAB PO PRN (00:50)
[2019-12-23 05:00] VITALS: BP 131/73
--- NOTE | 2019-12-23 05:00 | NUR ---
EXCUSE NOTE Patient requesting note from MD for time off work after discharge. Note left for MD in front of hard chart, will inform day shift RN
[2019-12-23 05:13] LABS: Basophils # (auto) 0 uL; Basophils % (auto) 0.4 % (0.0-2.0); Eosinophils # (auto) 0.2 uL; Hematocrit 38.1 % (36.0-46.0); Hemoglobin 12.7 g/dL (12.2-16.2); Lymphocytes # (auto) 2.5 uL; Lymphocytes % (auto) 27.9 % (10.0-50.0); Mean Corpuscular Hemoglobin 29.6 pg (28.0-32.0); Mean Corpuscular Hgb Conc. 33.3 g/dL (32.0-36.0); Mean Corpuscular Volume 88.8 fL (80.0-100.0); Monocytes # (auto) 0.8 uL; Monocytes % (auto) 8.4 % (0.0-12.0); Neutrophils # (auto) 5.5 uL; Neutrophils % (auto) 61.3 % (37.0-80.0); Nucleated Red Blood Cells % 0.1 %; Platelet Count (auto) 242 10^3/uL (140-450); Red Blood Cells 4.29 10^6/uL (4.0-5.20); Red Cell Distribution Width 13.2 % (11.8-14.3); White Blood Cell 8.9 10^3/uL (4.4-10.8)
[2019-12-23] MEDS: SUCRALFATE 1 GM TAB PO SCH ×2 (05:30→11:29)
[2019-12-23] MEDS: metroNIDAZOLE 500MG/100ML 100 ML IV SCH (05:30)
--- NOTE | 2019-12-23 07:30 | NUR ---
Opening Shift Note Assumed care of patient, awake and alert. No S/S of distress/SOB and denies pain. Plan of care discussed. Fall and safety precautions in place. Call light and phone within reach. Will continue to monitor for changes Q1hr and PRN. Dr Rivas aware of patient's request note for time off from work.
[2019-12-23 08:00] VITALS: BP 140/77
[2019-12-23] MEDS: cefTRIAXone 1GM/50ML D5W 50 ML IV SCH (08:17)
[2019-12-23 09:00] VITALS: BP 140/77
[2019-12-23] MEDS: PANTOPRAZOLE 40 MG TAB PO SCH (09:10)
[2019-12-23] MEDS: METOPROLOL TARTRATE 25 MG TAB PO SCH (09:13)
[2019-12-23] MEDS: LISINOPRIL 10 MG TAB PO SCH (09:14)
[2019-12-23 11:38] VITALS: BP 140/77
--- NOTE | 2019-12-23 12:20 | NUR ---
patient discharged at this time. All pertinent discharge summary and follow up copies provided. Patient verbalized understanding. IV discontinued and tele box returned to ICU. Patient left with all personal belonging and no physical complains reported.
[2019-12-23 12:46] VITALS: BP 111/77
--- NOTE | 2019-12-24 08:45 | NUR ---
Collar Trimmer Consult regarding Advance Directives. Provided pt with information on advance directives and Durable Power of Risk Control Manager Form. Pt verbalized understanding and accepted information. Will contact Collar Trimmer for any further concerns or issues.
== END 2019-12-23 12:20 | disposition home or self-care (01) | DRG 866 ==
LOC: ER 10:24 → EEVIPCON 10:24 → TELE 10:25 → TELE-CENTR 17:48
PROVIDERS: ADMIT Internal Medicine; ATTEND Family Medicine
DX: B34.9 Viral infection, unspecified (principal); E87.1 Hypo-osmolality and hyponatremia; E11.9 Type 2 diabetes mellitus without complications; E86.0 Dehydration; I10 Essential (primary) hypertension; J45.909 Unspecified asthma, uncomplicated; K20.9 Esophagitis, unspecified; K43.9 Ventral hernia without obstruction or gangrene; G89.29 Other chronic pain; Z80.9 Family history of malignant neoplasm, unspecified; Z82.49 Family history of ischemic heart disease and other diseases of the circulatory system; Z87.891 Personal history of nicotine dependence; Z90.49 Acquired absence of other specified parts of digestive tract; Z79.899 Other long term (current) drug therapy
CPT/HCPCS: 36415; 71045; 74176; 80053; 82150; 83690; 83735; 84484; 85025; 85652; 86141; 86677; 87081; 93005; C9113; G0378; J0696; J3490

== ENCOUNTER 2020-01-11 22:23 | Emergency (ER) | payer BC ==
[~2020-01-11] VITALS: Ht 149.9 cm; Wt 62.6 kg
[~2020-01-11 22:23] MED LIST changes: +CHLO25TA22 PO; +DICY20TA66 PO; -HCTZ25T PO; -LISI-285 PO; +LISI10TA6 PO; +PROM25TA5 PO
[2020-01-11 22:52] LABS: Urine Bacteria FEW /hpf (None Seen); Urine Blood Negative /uL (Negative); Urine Mucus FEW (None Seen); Urine Specific Gravity 1.032 (1.001-1.035); Urine WBC 36 /hpf (0 - 5)
[2020-01-11 22:55] LABS: Basophils # (auto) 0 uL; Basophils % (auto) 0.2 % (0.0-2.0); Eosinophils # (auto) 0 uL; Eosinophils % (auto) 0.1 % (0.0-7.0); Hematocrit 43.5 % (36.0-46.0); Lymphocytes # (auto) 1.5 uL; Lymphocytes % (auto) 13.7 % (10.0-50.0); Mean Corpuscular Hemoglobin 30.1 pg (28.0-32.0); Mean Corpuscular Hgb Conc. 34.6 g/dL (32.0-36.0); Monocytes # (auto) 0.5 uL; Monocytes % (auto) 4.3 % (0.0-12.0); Neutrophils % (auto) 81.7 % (37.0-80.0); Nucleated Red Blood Cells % 0.1 %; Platelet Count (auto) 336 10^3/uL (140-450); Red Cell Distribution Width 13.2 % (11.8-14.3)
[2020-01-11] MEDS ORDERED: HYDROmorphone HCL 2 MG/ML VL IV ONE (23:00)
[2020-01-11] MEDS ORDERED: SODIUM CHLORIDE 0.9% 1,000 ML IV ONE (23:00)
[2020-01-11] MEDS ORDERED: ONDANSETRON HCL 4 MG/2 ML VIAL IV ONE (23:00)
[2020-01-11 23:11] LABS: INR 1.02 (0.9-1.15); Partial Thromboplastin Time 25.4 sec (23.64-32.05)
[2020-01-11 23:19] LABS: Albumin 4.2 g/dL (3.4-5.0); Amylase 44 U/L (25-115); Blood Urea Nitrogen 19 mg/dL (7-18); Calcium 9.1 mg/dL (8.5-10.1); Carbon Dioxide 21 mmol/L (21-32); Glucose 150 mg/dL (74-106); Lipase 77 U/L (73-393); Magnesium 2.1 mg/dL (1.6-2.6)
[2020-01-11 23:21] LABS: Alanine Aminotransferase 31 U/L (13-56); Anion Gap 11 (5-15); Aspartate Aminotransferase 17 U/L (15-37); BUN/Creatinine Ratio 26.4; Chloride 101 mmol/L (98-107); GFR African American 107 mL/min; GFR Non-African American 88 mL/min; Potassium 3.3 mmol/L (3.5-5.1); Sodium 133 mmol/L (136-145)
[2020-01-11 23:25] LABS: Alkaline Phosphatase 90 U/L (45-117); Bilirubin, Total 0.5 mg/dL (0.2-1.0); Total Protein 8.2 g/dL (6.4-8.2)
[2020-01-12] MEDS ORDERED: metroNIDAZOLE 500MG/100ML 100 ML IV ONE (01:00)
[2020-01-12] MEDS ORDERED: ONDANSETRON HCL 4 MG/2 ML VIAL IV ONE (01:00)
[2020-01-12] MEDS ORDERED: HYDROmorphone HCL 2 MG/ML VL IM ONE (01:00)
[2020-01-12 01:24] VITALS: BP 150/96
[2020-01-12] MEDS ORDERED: HYDROmorphone HCL 2 MG/ML VL IV ONE (02:15)
== END 2020-01-12 02:05 | disposition home or self-care (01) ==
LOC: ER 22:24
DX: K52.9 Noninfective gastroenteritis and colitis, unspecified (principal); N39.0 Urinary tract infection, site not specified; D72.829 Elevated white blood cell count, unspecified; E87.1 Hypo-osmolality and hyponatremia; E87.6 Hypokalemia; R73.9 Hyperglycemia, unspecified; I10 Essential (primary) hypertension; E78.5 Hyperlipidemia, unspecified; J45.909 Unspecified asthma, uncomplicated; Z90.49 Acquired absence of other specified parts of digestive tract; Z79.899 Other long term (current) drug therapy
CPT/HCPCS: 36415; 71045; 74176; 80053; 81001; 82150; 83690; 83735; 84484; 85025; 85610; 85730; 93005; 96361; 96365; 96375; 96376; 99285; J1170; J2405; J3490; J7030

== ENCOUNTER → 2020-01-17 | Outpatient (CLI) | payer BC ==
[2020-01-17 11:54] LABS: Basophils # (auto) 0 10 ^3/uL (0-0.2); Basophils % (auto) 0.5 % (0.0-2.0); Eosinophils # (auto) 0.2 10 ^3/uL (0-0.8); Eosinophils % (auto) 2.7 % (0.0-7.0); Hematocrit 39.9 % (36.0-46.0); Hemoglobin 13.8 g/dL (12.2-16.2); Lymphocytes # (auto) 2.4 10 ^3/uL (0.4-5.4); Lymphocytes % (auto) 33.5 % (10.0-50.0); Mean Corpuscular Hgb Conc. 34.5 g/dL (32.0-36.0); Mean Corpuscular Volume 87.1 fL (80.0-100.0); Monocytes # (auto) 0.5 10 ^3/uL (0-1.3); Monocytes % (auto) 6.6 % (0.0-12.0); Neutrophils % (auto) 56.7 % (37.0-80.0); Nucleated Red Blood Cells % 0.1 %; Platelet Count (auto) 252 10^3/uL (140-450); Red Blood Cells 4.59 10^6/uL (4.0-5.20); Red Cell Distribution Width 13.5 % (11.8-14.3)
[2020-01-17 11:55] LABS: Urine Bacteria NONE SEEN /hpf (None Seen); Urine Blood Negative /uL (Negative); Urine Mucus FEW (None Seen); Urine Specific Gravity 1.018 (1.001-1.035); Urine WBC 2 /hpf (0 - 5)
[2020-01-17 12:13] LABS: Albumin 3.5 g/dL (3.4-5.0); Calcium 9.2 mg/dL (8.5-10.1); Potassium 3.2 mmol/L (3.5-5.1)
[2020-01-17 12:17] LABS: BUN/Creatinine Ratio 21.7; Bilirubin, Total 0.4 mg/dL (0.2-1.0); Total Protein 7.1 g/dL (6.4-8.2)
== END | disposition home or self-care (01) ==
LOC: LAB 11:22
PROVIDERS: ATTEND Internal Medicine
DX: K29.70 Gastritis, unspecified, without bleeding (principal)
CPT/HCPCS: 36415; 80053; 81001; 82150; 83690; 85025

== ENCOUNTER 2020-05-23 19:12 | Inpatient (IN) | payer BC, OTHER ==
[~2020-05-23] VITALS: Ht 149.9 cm; Wt 59.0 kg
[~2020-05-23 19:12] MED LIST changes: +DICY20TA PO; -DICY20TA66 PO; +LISI-648 PO; -LISI10TA6 PO; +SUCR1TAB22 OR; -SUCR1TAB38 OR
[2020-05-23] MEDS ORDERED: cloNIDine HCL 0.1 MG TAB PO ONE (19:30)
[2020-05-23] MEDS ORDERED: cloNIDine HCL 0.1 MG TAB ONE (19:33)
[2020-05-23] MEDS ORDERED: SODIUM CHLORIDE 0.9% 1,000 ML IV ONE (20:04)
[2020-05-23] MEDS ORDERED: ONDANSETRON HCL 4 MG/2 ML VIAL IV ONE (20:15)
[2020-05-23] MEDS ORDERED: KETOROLAC TROMETH 30 MG/ML 1ML VIAL IV ONE (20:15)
[2020-05-23 20:18] LABS: Basophils # (auto) 0.1 10 ^3/uL (0-0.2); Basophils % (auto) 0.3 % (0.0-2.0); Eosinophils # (auto) 0 10 ^3/uL (0-0.8); Hematocrit 45.3 % (36.0-46.0); Lymphocytes # (auto) 1.1 10 ^3/uL (0.4-5.4); Mean Corpuscular Hemoglobin 29.3 pg (28.0-32.0); Mean Corpuscular Hgb Conc. 33.1 g/dL (32.0-36.0); Mean Corpuscular Volume 88.5 fL (80.0-100.0); Monocytes # (auto) 0.3 10 ^3/uL (0-1.3); Monocytes % (auto) 1.7 % (0.0-12.0); Neutrophils # (auto) 16.7 10 ^3/uL (1.6-8.6); Nucleated Red Blood Cells % 0.1 %; Platelet Count (auto) 361 10^3/uL (140-450); Red Blood Cells 5.12 10^6/uL (4.0-5.20); Red Cell Distribution Width 13.6 % (11.8-14.3); White Blood Cell 18.2 10^3/uL (4.4-10.8)
[2020-05-23 20:38] LABS: Albumin 4.4 g/dL (3.4-5.0); Amylase 38 U/L (25-115); BUN/Creatinine Ratio 42.3; Calcium 9.5 mg/dL (8.5-10.1); Lipase 68 U/L (73-393); Potassium 3.8 mmol/L (3.5-5.1)
[2020-05-23 20:40] LABS: Bilirubin, Total 0.8 mg/dL (0.2-1.0); Total Protein 8.6 g/dL (6.4-8.2)
[2020-05-23] MEDS ORDERED: SUCRALFATE 1 GM/10 ML ORAL SUSP PO ONE (20:45)
[2020-05-23] MEDS ORDERED: HYDROmorphone HCL 2 MG/ML VL IV ONE (20:45)
[2020-05-23] MEDS ORDERED: PANTOPRAZOLE 40 MG/10 ML VIAL INJ IV ONE (20:45)
[2020-05-24] MEDS ORDERED: IOHEXOL 300 MG/ML 100ML BOTTLE IJ ONE (00:22)
[2020-05-24] MEDS ORDERED: ONDANSETRON HCL 4 MG/2 ML VIAL IV ONE (02:45)
[2020-05-24] MEDS ORDERED: HYDROmorphone HCL 2 MG/ML VL IV ONE (02:45)
[2020-05-24 03:04] LABS: Urine Bacteria NONE SEEN /hpf (None Seen); Urine Blood Negative /uL (Negative); Urine Mucus FEW (None Seen); Urine WBC 2 /hpf (0 - 5)
[2020-05-24 03:06] LABS: Urine Specific Gravity 1.055 (1.001-1.035)
[2020-05-24 03:20] LABS: Alcohol, Urine < 3.0 mg/dL (0-10); Amphetamine Screen, Urine NEGATIVE (NEGATIVE); Barbiturate Scree,Urine NEGATIVE (NEGATIVE); Benzodiazephine Screen, Urine NEGATIVE (NEGATIVE); Cannabinoid Screen, Urine POSITIVE (NEGATIVE); Cocaine Screen, Urine NEGATIVE (NEGATIVE); Opiate Scree,Urine NEGATIVE (NEGATIVE); Phencyclidine Screen, Urine NEGATIVE (NEGATIVE)
[2020-05-24] MEDS ORDERED: ACETAMINOPHEN 325 MG TAB PO PRN (03:45)
[2020-05-24] MEDS ORDERED: DEXTROSE (50%) 50ML SYRG IV PRN (03:45)
[2020-05-24] MEDS ORDERED: cloNIDine HCL 0.1 MG TAB PO PRN (03:45)
[2020-05-24] MEDS ORDERED: DOCUSATE SOD 100 MG CAP PO PRN (03:45)
[2020-05-24] MEDS ORDERED: LORazepam 0.5 MG TAB PO PRN ×2 (03:45→12:45)
[2020-05-24] MEDS ORDERED: ONDANSETRON HCL 4 MG/2 ML VIAL IV PRN (03:45)
[2020-05-24] MEDS ORDERED: ALUM & MAG HYDROX-SIMETH LIQ(MAALOX) 30 ML PO PRN (03:45)
[2020-05-24] MEDS: metroNIDAZOLE 500MG/100ML 100 ML IV SCH ×4 (05:19→23:55)
[2020-05-24] MEDS ORDERED: ACCU-CHEK COMFORT CURVE STRIP VI SCH (06:00)
[2020-05-24] MEDS ORDERED: InsuLIN REG 1unit/0.01ml Soln (100units/ml) SC SCH (06:00)
[2020-05-24] MEDS: SODIUM CHLORIDE 0.9% 1,000 ML IV SCH ×2 (06:29→21:29)
[2020-05-24] MEDS: SUCRALFATE 1 GM TAB PO SCH ×4 (06:35→21:30)
[2020-05-24] MEDS: MORPHINE SULF INJ 2 MG/ML SYRINGE 1ML IV PRN ×3 (08:44→19:15)
[2020-05-24 09:24] LABS: BUN/Creatinine Ratio 44.7; Calcium 9.2 mg/dL (8.5-10.1); Potassium 3.5 mmol/L (3.5-5.1)
[2020-05-24 09:47] LABS: Basophils # (auto) 0 10 ^3/uL (0-0.2); Basophils % (auto) 0.2 % (0.0-2.0); Eosinophils # (auto) 0 10 ^3/uL (0-0.8); Hematocrit 43.1 % (36.0-46.0); Hemoglobin 14.2 g/dL (12.2-16.2); Lymphocytes # (auto) 1.8 10 ^3/uL (0.4-5.4); Lymphocytes % (auto) 11.5 % (10.0-50.0); Mean Corpuscular Hemoglobin 29.6 pg (28.0-32.0); Mean Corpuscular Hgb Conc. 33.1 g/dL (32.0-36.0); Mean Corpuscular Volume 89.4 fL (80.0-100.0); Monocytes # (auto) 0.9 10 ^3/uL (0-1.3); Monocytes % (auto) 5.7 % (0.0-12.0); Neutrophils # (auto) 12.9 10 ^3/uL (1.6-8.6); Neutrophils % (auto) 82.6 % (37.0-80.0); Nucleated Red Blood Cells % 0.1 %; Platelet Count (auto) 315 10^3/uL (140-450); Red Blood Cells 4.82 10^6/uL (4.0-5.20); Red Cell Distribution Width 14.2 % (11.8-14.3); White Blood Cell 15.6 10^3/uL (4.4-10.8)
[2020-05-24] MEDS ORDERED: PROMETHAZINE HCL 25 MG PO SCH (10:00)
[2020-05-24] MEDS ORDERED: Chlorthalidone 25 MG TAB PO SCH (10:00)
[2020-05-24] MEDS ORDERED: PANTOPRAZOLE 40 MG/10 ML VIAL INJ IV SCH (10:00)
[2020-05-24] MEDS ORDERED: PANTOPRAZOLE 40 MG TAB PO SCH (10:00)
[2020-05-24] MEDS: DICYCLOMINE HCL 10 MG CAP PO SCH ×2 (10:34→21:29)
[2020-05-24] MEDS: LISINOPRIL 10 MG TAB PO SCH ×2 (10:34→21:30)
[2020-05-24] MEDS: PROMETHAZINE HCL 25 MG/ML 1ML IV PRN ×2 (13:35→19:15)
[2020-05-24 18:15] LABS: Albumin 3.2 g/dL (3.4-5.0); BUN/Creatinine Ratio 38.8; Calcium 8.1 mg/dL (8.5-10.1); Potassium 3.7 mmol/L (3.5-5.1)
[2020-05-24 18:17] LABS: Bilirubin, Total 0.5 mg/dL (0.2-1.0); Total Protein 6.5 g/dL (6.4-8.2)
[2020-05-24 18:19] LABS: Basophils # (auto) 0 10 ^3/uL (0-0.2); Basophils % (auto) 0.2 % (0.0-2.0); Eosinophils # (auto) 0 10 ^3/uL (0-0.8); Hematocrit 36.5 % (36.0-46.0); Hemoglobin 12.2 g/dL (12.2-16.2); Lymphocytes # (auto) 2.1 10 ^3/uL (0.4-5.4); Lymphocytes % (auto) 18.4 % (10.0-50.0); Mean Corpuscular Hemoglobin 29.6 pg (28.0-32.0); Mean Corpuscular Hgb Conc. 33.4 g/dL (32.0-36.0); Mean Corpuscular Volume 88.4 fL (80.0-100.0); Monocytes # (auto) 0.8 10 ^3/uL (0-1.3); Neutrophils # (auto) 8.3 10 ^3/uL (1.6-8.6); Neutrophils % (auto) 74.4 % (37.0-80.0); Platelet Count (auto) 257 10^3/uL (140-450); Red Blood Cells 4.13 10^6/uL (4.0-5.20); Red Cell Distribution Width 13.8 % (11.8-14.3); White Blood Cell 11.2 10^3/uL (4.4-10.8)
--- NOTE | 2020-05-24 19:30 | NUR ---
Opening Shift Note Assumed care of patient, awake and alert. No S/S of distress/SOB or pain. Instructed on POC and to be NPO after MN. Instructed to call for assist PRN, patient verbalized understanding, call light within reach, will continue to monitor for changes Q1hr and PRN.
[2020-05-24 20:00] VITALS: BP 117/54
[2020-05-24] MEDS: PANTOPRAZOLE 40 MG/10 ML VIAL INJ IV SCH (21:29)
[2020-05-24 22:00] VITALS: BP 117/54
[2020-05-25 05:00] VITALS: BP 139/62
[2020-05-25 05:27] LABS: Basophils # (auto) 0 10 ^3/uL (0-0.2); Basophils % (auto) 0.4 % (0.0-2.0); Eosinophils # (auto) 0 10 ^3/uL (0-0.8); Eosinophils % (auto) 0.3 % (0.0-7.0); Hematocrit 36.3 % (36.0-46.0); Lymphocytes # (auto) 2.3 10 ^3/uL (0.4-5.4); Lymphocytes % (auto) 27.7 % (10.0-50.0); Mean Corpuscular Hemoglobin 29.6 pg (28.0-32.0); Mean Corpuscular Volume 89.6 fL (80.0-100.0); Monocytes # (auto) 0.7 10 ^3/uL (0-1.3); Monocytes % (auto) 8.3 % (0.0-12.0); Neutrophils # (auto) 5.2 10 ^3/uL (1.6-8.6); Neutrophils % (auto) 63.3 % (37.0-80.0); Nucleated Red Blood Cells % 0.2 %; Platelet Count (auto) 225 10^3/uL (140-450); Red Blood Cells 4.05 10^6/uL (4.0-5.20); Red Cell Distribution Width 13.8 % (11.8-14.3); White Blood Cell 8.1 10^3/uL (4.4-10.8)
[2020-05-25] MEDS: metroNIDAZOLE 500MG/100ML 100 ML IV SCH ×3 (05:34→17:19)
[2020-05-25 05:52] LABS: Magnesium 2.3 mg/dL (1.6-2.6); Potassium 3.3 mmol/L (3.5-5.1)
[2020-05-25 05:55] LABS: Bilirubin, Total 0.5 mg/dL (0.2-1.0); Total Protein 6.2 g/dL (6.4-8.2)
[2020-05-25] MEDS: PROMETHAZINE HCL 25 MG/ML 1ML IV PRN ×2 (06:10→13:17)
[2020-05-25] MEDS: MORPHINE SULF INJ 2 MG/ML SYRINGE 1ML IV PRN ×2 (06:10→10:30)
[2020-05-25] MEDS: SUCRALFATE 1 GM TAB PO SCH ×4 (06:34→20:14)
[2020-05-25 08:00] VITALS: BP 173/103
--- NOTE | 2020-05-25 08:05 | NUR ---
Paged hospitalist to inform of pt's high BP of 173/103, pt having severe nausea, and pt having abdominal pain after receiving morphine, awaiting call back.
--- NOTE | 2020-05-25 08:35 | NUR ---
Paged hospitalist to inform of pt's high BP of 173/103, pt having severe nausea, and pt having abdominal pain after receiving morphine, awaiting call back.
--- NOTE | 2020-05-25 09:03 | NUR ---
Dr. Rivas at unit, doctor informed of pt's high bp 173/103, hr 91, and severe nausea, pt schedule for an upper GI series, obtain an order for labetalol 10 mg IV X1, and Zofran 4 mg IV Q4hr.
[2020-05-25] MEDS ORDERED: LABETALOL HCL 5 MG/ML 4ML SYRINGE IV ONE (09:15)
[2020-05-25] MEDS ORDERED: ONDANSETRON HCL 4 MG/2 ML VIAL IV PRN (09:15)
[2020-05-25] MEDS: PANTOPRAZOLE 40 MG/10 ML VIAL INJ IV SCH ×2 (09:16→21:05)
--- NOTE | 2020-05-25 09:41 | NUR ---
Dr. Pereira at unit, doctor informed that Dr. Rivas order the one time Labetalol, and Martine, doctor also informed that pt is requesting a different type of pain medication, doctor gave orders for Reglan 5 mg IV Q8hr, and will come and talk to the pt for pain medication.
[2020-05-25] MEDS: DICYCLOMINE HCL 10 MG CAP PO SCH ×2 (10:57→20:14)
[2020-05-25] MEDS: LISINOPRIL 10 MG TAB PO SCH (10:58)
[2020-05-25 11:09] LABS: INR 1.05 (0.9-1.15)
[2020-05-25 12:00] VITALS: BP 188/96
--- NOTE | 2020-05-25 12:07 | NUR ---
Pt refused to have the Abdominal MRI and the UGI series due to pt been vomiting all morning, pt was given nausea medication, will continue to monitor pt.
[2020-05-25] MEDS ORDERED: levoFLOXacin 500MG 100 ML IV ONE (13:00)
[2020-05-25] MEDS: HYDROmorphone HCL 2 MG/ML VL IV PRN ×2 (13:18→21:20)
[2020-05-25] MEDS: METOCLOPRAMIDE HCL 5MG/ml INJ 2ml VIAL IV SCH ×2 (13:18→21:05)
[2020-05-25] MEDS: SODIUM CHLORIDE 0.9% 1,000 ML IV SCH (13:19)
[2020-05-25] MEDS: POTASSIUM CHL 20MEQ/100ML 100 ML IV SCH ×2 (13:19→15:54)
[2020-05-25] MEDS: hydrALAZINE HCL 20 MG/ML VL IV PRN (13:53)
--- NOTE | 2020-05-25 14:37 | NUR ---
Received call from Dr. Diaz / surgeon to inquired on pt's consult, ordered NGT to LCS, NPO and for pt to have the UGI series x-ray. PT informed, Placed NGT to lt nare to 58 centemeters, checked placement, and order a cxr to confirm placement.
[2020-05-25 17:02] VITALS: BP 92/56
--- NOTE | 2020-05-25 20:00 | NUR ---
Received patient in bed, awake and alert, NGT to left nare to LCWS 0 output at this time. Patient reminded of NPO after midnight order for EGD in am, patient verbalized understanding.
[2020-05-25 22:00] VITALS: BP 96/62
[2020-05-26] MEDS: metroNIDAZOLE 500MG/100ML 100 ML IV SCH ×4 (00:07→17:36)
[2020-05-26 05:00] VITALS: BP 109/66
[2020-05-26] MEDS: METOCLOPRAMIDE HCL 5MG/ml INJ 2ml VIAL IV SCH ×3 (05:04→20:22)
[2020-05-26] MEDS: PROMETHAZINE HCL 25 MG/ML 1ML IV PRN ×3 (05:04→15:11)
[2020-05-26] MEDS: SODIUM CHLORIDE 0.9% 1,000 ML IV SCH (05:08)
[2020-05-26] MEDS: SUCRALFATE 1 GM TAB PO SCH ×4 (05:10→20:21)
--- NOTE | 2020-05-26 07:41 | NUR ---
CRITICAL LAB RECEIVED CALL FROM LAB REGARDING CRITICAL POTASSIUM LEVEL OF 2.9. PAGE OUT TO MD HAMLIN FOR ORDERS. Addendum: 05/26/20 at 0742 by Ashanti Harris RN ISADORA HAMLIN
[2020-05-26] MEDS ORDERED: POTASSIUM CHL 20 Meq TABLET PO ONE (07:45)
--- NOTE | 2020-05-26 07:45 | NUR ---
RECEIVED CALL FROM HOSPITALIST CHRISTOPHER HAMLIN CALLED BACK AND GAVE ORDERS FOR KCL 40MEQ PO ONCE. ORDERS READ BACK AND VERIFIED, WILL CARRY OUT.
--- NOTE | 2020-05-26 07:51 | NUR ---
SPOKE WITH MD RECEIVED CALL FROM DR He BARNES REGARDING PATIENT'S NPO STATUS. INFORMED HER OF PATIENT'S CRITICAL POTASSIUM AND PO ORDER RECEIVED FROM CHRISTOPHER HAMLIN. NEW ORDERS RECEIVED FROM He BARNES FOR 40MEQ KRIDER ONCE. ORDERS READ BACK AND VERIFIED, WILL CARRY OUT AND CANCEL PREVIOUS PO ORDERS.
[2020-05-26 08:00] VITALS: BP 116/61
[2020-05-26] MEDS ORDERED: POTASSIUM CHLORIDE 20 MEQ, LIDOCAINE 1% (LOCAL ANESTH.) 2 ML in SODIUM CHL 0.9% 100 ML IV ONE ×2 (08:00→10:00)
--- NOTE | 2020-05-26 08:00 | NUR ---
OPENING SHIFT NOTE ASSUMED CARE OF PATIENT AWAKE AND ALERT. NO S/S OF DISTRESS NOTED. PATIENT UPDATED ON POC FOR THE DAY AND ALL QUESTIONS ANSWERED. BED IS IN LOWEST, LOCKED POSITION WITH SIDE RAILS UP X2 AND CALL LIGHT WITHIN REACH. WILL CONTINUE TO MONITOR Q1H AND PRN.
[2020-05-26] MEDS: PANTOPRAZOLE 40 MG/10 ML VIAL INJ IV SCH ×2 (09:03→20:21)
[2020-05-26] MEDS: DICYCLOMINE HCL 10 MG CAP PO SCH ×2 (09:03→20:21)
[2020-05-26] MEDS: LISINOPRIL 20 MG TAB PO SCH (09:04)
[2020-05-26] MEDS: levoFLOXacin 500MG 100 ML IV SCH (10:00)
[2020-05-26] MEDS: HYDROmorphone HCL 2 MG/ML VL IV PRN ×3 (10:30→20:22)
[2020-05-26 12:00] VITALS: BP 197/102
--- NOTE | 2020-05-26 12:01 | NUR ---
Nutrition Assessment Note: Please see attached link for complete assessment Est energy needs 9731-8827 kcal (30-35 kcal/kg BW 51.4kg) Est protein needs 41-51g (0.8-1g/kg BW 51.4kg) Will reassess prn Addendum: 05/26/20 at [address] Amended: Links added.
[2020-05-26] MEDS: hydrALAZINE HCL 20 MG/ML VL IV PRN (12:11)
[2020-05-26] MEDS ORDERED: METOCLOPRAMIDE HCL 5MG/ml INJ 2ml VIAL IV ONE (12:15)
--- NOTE | 2020-05-26 13:02 | NUR ---
OFF UNIT PATIENT TAKEN DOWN TO PREOP WITHOUT INCIDENT.
[2020-05-26] MEDS ORDERED: MIDAZOLAM HCL 1MG/1ML-2 ML VIAL ONE (14:10)
[2020-05-26] MEDS ORDERED: fentaNYL CITRATE 100 MCG/2 ML VL ONE (14:10)
[2020-05-26] MEDS ORDERED: PROPOFOL 10 MG/ML 20 ML IV ONE (14:11)
[2020-05-26] MEDS ORDERED: ONDANSETRON HCL 4 MG/2 ML VIAL IV PRN (14:45)
[2020-05-26] MEDS ORDERED: fentaNYL CITRATE 100 MCG/2 ML VL IV PRN (14:45)
[2020-05-26] MEDS ORDERED: ePHEDrine SULFATE 50 MG/ML AMP IV PRN (14:45)
[2020-05-26] MEDS ORDERED: hydrALAZINE HCL 20 MG/ML VL IV PRN (14:45)
--- NOTE | 2020-05-26 15:05 | NUR ---
BACK TO UNIT PATIENT BROUGHT BACK TO ROOM AFTER REPORT RECEIVED. NGT REMOVED AFTER PROCEDURE BY OR STAFF. PATIENT IS NOW UPGRADED TO TELEMETRY. WILL CONTINUE TO MONITOR Q1H AND PRN.
[2020-05-26] MEDS: SOD CHL 0.9%/ KCL 20MEQ 1,000 ML IV SCH (15:10)
[2020-05-26 17:01] VITALS: BP 102/64
--- NOTE | 2020-05-26 19:00 | NUR ---
Opening Shift Note Assumed care of patient, awake and alert and oriented. No S/S of distress/SOB. Patient asking for pain medication. Instructed on POC and to call for assist . Family updated on pt status Family updated on patient's status and condition. All questions and concerns addressed. verbalized understanding.
[2020-05-26 21:37] VITALS: BP 122/58
--- NOTE | 2020-05-26 23:02 | NUR ---
Patient resting. No signs of distress.
[2020-05-27] MEDS: metroNIDAZOLE 500MG/100ML 100 ML IV SCH ×2 (00:16→04:55)
[2020-05-27 04:55] VITALS: BP 137/76
[2020-05-27] MEDS: SUCRALFATE 1 GM TAB PO SCH ×4 (04:55→23:31)
[2020-05-27] MEDS: METOCLOPRAMIDE HCL 5MG/ml INJ 2ml VIAL IV SCH ×4 (04:55→23:32)
[2020-05-27] MEDS: HYDROmorphone HCL 2 MG/ML VL IV PRN (04:56)
--- NOTE | 2020-05-27 04:56 | NUR ---
PATIENT SLEPT MOST OF THE NIGHT . WOKE UP MEDICATED FOR PAIN AND NAUSEA.
[2020-05-27] MEDS: SOD CHL 0.9%/ KCL 20MEQ 1,000 ML IV SCH (06:35)
[2020-05-27 07:15] LABS: Hematocrit 41.1 % (36.0-46.0)
[2020-05-27 07:40] LABS: Calcium 8.6 mg/dL (8.5-10.1); Potassium 3.1 mmol/L (3.5-5.1)
[2020-05-27 07:43] LABS: BUN/Creatinine Ratio 28.6
[2020-05-27 08:00] VITALS: BP 197/102
--- NOTE | 2020-05-27 08:00 | NUR ---
ASSESSMENT NOTE PT IS ALERT ORIENTED X4, RESTING IN BED COMFORTABLY, FEELING VERY EMOTIONAL FOR BEING HERE, ABL ETO SELF REPOSITION AND VERBALIS HER NEEDS, ON PAIN MANAGEMENT NEEDED, NPO, CALL LIGHT WITHIN REACH
[2020-05-27 08:57] VITALS: BP 135/79
[2020-05-27] MEDS: levoFLOXacin 500MG 100 ML IV SCH (09:17)
[2020-05-27] MEDS: PANTOPRAZOLE 40 MG/10 ML VIAL INJ IV SCH (09:17)
[2020-05-27] MEDS: PROMETHAZINE HCL 25 MG/ML 1ML IV PRN ×2 (09:18→14:47)
[2020-05-27] MEDS ORDERED: EZ-GAS II GRANULES (RADIOLOGY USE) PO ONE (09:59)
[2020-05-27] MEDS ORDERED: GASTROGRAFIN 120 ML SOL ONE (09:59)
[2020-05-27] MEDS: LISINOPRIL 20 MG TAB PO SCH (10:00)
--- NOTE | 2020-05-27 10:10 | NUR ---
OUT TO RADIOLOGY, VIA WHEELCHAIR FOR UGI SERIES
[2020-05-27] MEDS ORDERED: EZ PAQUE SUSP 12OZ BTL ONE (11:04)
[2020-05-27] MEDS ORDERED: HYDROmorphone HCL 2 MG/ML VL IV PRN (11:15)
--- NOTE | 2020-05-27 11:35 | NUR ---
PT IS BACK TO HER ROOM, STATED I AM NAUSEATED, I AM IN PAIN, I NEED NAUSEA MEDS AND PAIN MEDS, NOW, PLEASE>
[2020-05-27] MEDS: DICYCLOMINE HCL 10 MG CAP PO SCH ×2 (11:43→23:31)
--- NOTE | 2020-05-27 12:25 | NUR ---
DR TURCIOS IS HERE, UPDATE GIVEN TO HER, WAITING FOR UGI X RAY RESULTS
--- NOTE | 2020-05-27 12:27 | NUR ---
SPOKE WITH ANDRES IN RADIOLOGY, VERIFY IF PT CAN EAT LUNCH, SAID TO KEEP PT NPO, AND BUZZ IS COMING OVER TO TAKE MORE PICTURES, PT AWARE
--- NOTE | 2020-05-27 14:30 | NUR ---
DR TURCIOS AT BED SIDE, PT CONTINUE COMPLAINING FROM NAUSEA, ADVICE PT TO ABSTAIN FROM PAIN MEDS AND STAY ON NAUSEA MEDS
[2020-05-27 16:46] VITALS: BP 140/80
--- NOTE | 2020-05-27 18:42 | NUR ---
PT CONTINUE STABLE, CONTINUE MONITORING, PT CONTINUE NOT EATING, CONTINUE MONITORING
--- NOTE | 2020-05-27 19:00 | NUR ---
Opening Shift Note Assumed care of patient, awake and alert. No S/S of distress/SOB or pain. Instructed on POC and to call for assist PRN, will continue to monitor for changes Q1hr and PRN.
--- NOTE | 2020-05-27 21:50 | NUR ---
Medicated for pain. Patient resting now. Denies SOB
[2020-05-27 22:00] VITALS: BP 136/93
[2020-05-27] MEDS: HYDROcodone-ACET 5/325MG TAB PO PRN (23:32)
[2020-05-28] MEDS: METOCLOPRAMIDE HCL 5MG/ml INJ 2ml VIAL IV SCH ×3 (04:43→17:47)
[2020-05-28] MEDS: SUCRALFATE 1 GM TAB PO SCH ×4 (04:43→20:23)
[2020-05-28] MEDS: hydrALAZINE HCL 20 MG/ML VL IV PRN (04:59)
[2020-05-28 05:00] VITALS: BP 156/90
--- NOTE | 2020-05-28 07:28 | NUR ---
Opening Shift Note Assumed care of patient, awake and alert. No S/S of distress/SOB, reports mild pain. Instructed on POC and to call for assist PRN, will continue to monitor for changes Q1hr and PRN.
[2020-05-28] MEDS: PROMETHAZINE HCL 25 MG/ML 1ML IV PRN ×3 (07:49→20:24)
[2020-05-28 08:40] VITALS: BP 164/89
[2020-05-28] MEDS: LISINOPRIL 20 MG TAB PO SCH (09:53)
[2020-05-28] MEDS: DICYCLOMINE HCL 10 MG CAP PO SCH ×2 (09:54→20:23)
--- NOTE | 2020-05-28 12:20 | NUR ---
Nutrition Followup Note Wt: 57 kg Pt was sleeping with no family by bedside. per records pt s/p UGI study. pt with N.V.P. pt is now advanced to 2 gm na diet with no PO recorded yet Est energy needs 4429-4636 kcal (30-35 kcal/kg BW 51.4kg) Est protein needs 41-51g (0.8-1g/kg BW 51.4kg) Will reassess prn Labs: ALB 3.0 L. BM: Pt had 1 BM today per RN note Skin: Bs 13 high risk, pt with mult bilateral wounds and sacral wounds, full details in child adolescent care note PES: Altered nutrition related lab values r.t current chronic medical condition aeb elev BUN hypocalcemia Comments 1) continue current plan of care. F/u mod 3-5 days
[2020-05-28 12:44] VITALS: BP 161/90
[2020-05-28 16:16] VITALS: BP 135/68
--- NOTE | 2020-05-28 19:00 | NUR ---
Opening Shift Note Assumed care. Patient, awake and alert X4 No S/S of distress/SOB or pain. Instructed on POC and to call for assist as needed. Call light with in reach, bed on lowest position, side rails up X2. Will continue to monitor.
[2020-05-28] MEDS: HYDROcodone-ACET 5/325MG TAB PO PRN (20:24)
--- NOTE | 2020-05-28 20:25 | NUR ---
Patient tried to eat and became nauseated, she refused to continue eating. Medication for nausea given.
[2020-05-28 22:17] VITALS: BP 118/71
[2020-05-29] MEDS: METOCLOPRAMIDE HCL 5MG/ml INJ 2ml VIAL IV SCH ×3 (00:26→12:00)
[2020-05-29 05:11] VITALS: BP 134/83
[2020-05-29] MEDS: SUCRALFATE 1 GM TAB PO SCH ×2 (05:11→11:30)
[2020-05-29] MEDS: PROMETHAZINE HCL 25 MG/ML 1ML IV PRN (07:40)
[2020-05-29 09:00] VITALS: BP 154/96
[2020-05-29] MEDS: LISINOPRIL 20 MG TAB PO SCH (10:32)
[2020-05-29] MEDS: DICYCLOMINE HCL 10 MG CAP PO SCH (10:32)
[2020-05-29 13:00] VITALS: BP 128/85
[2020-05-29] MEDS ORDERED: SUCR1SUS10 PO (13:16)
[2020-05-29 14:08] VITALS: BP 128/85
--- NOTE | 2020-05-29 15:16 | NUR ---
Discharge instructions given as ordered. Encourage to follow up with PMD as instructed. All questions and concerns addressed. Patient verbalized understanding. Medication reconciliation form completed and copy given to patient. IV removed with catheter intact, pressure dressing applied. Telemetry unit returned to ICU. Patient taken to vehicle via wheelchair with all personal belongings, accompanied by staff. No distress noted at time of departure.
== END 2020-05-29 15:30 | disposition home or self-care (01) | DRG 392 ==
LOC: ER 19:12 → EEVIPCON 19:12 → OVERFLOW 19:13 → CENTRAL 05-24 12:19 → TELE-CENTR 05-26 14:53
PROVIDERS: ADMIT Hospitalist; ATTEND Internal Medicine
PROC: 0DB88ZX Excision of Small Intestine, Via Natural or Artificial Opening Endoscopic, Diagnostic (ICD-10-PCS; 2020-05-26)
PROC: 0DB68ZX Excision of Stomach, Via Natural or Artificial Opening Endoscopic, Diagnostic (ICD-10-PCS; principal; 2020-05-26 14:05)
DX: K29.50 Unspecified chronic gastritis without bleeding (principal); R65.10 Systemic inflammatory response syndrome (SIRS) of non-infectious origin without acute organ dysfunction; I51.81 Takotsubo syndrome; K29.80 Duodenitis without bleeding; K42.9 Umbilical hernia without obstruction or gangrene; K21.9 Gastro-esophageal reflux disease without esophagitis; J45.909 Unspecified asthma, uncomplicated; I10 Essential (primary) hypertension; F12.90 Cannabis use, unspecified, uncomplicated; E66.01 Morbid (severe) obesity due to excess calories; E87.6 Hypokalemia; K44.9 Diaphragmatic hernia without obstruction or gangrene; E78.5 Hyperlipidemia, unspecified; Z82.49 Family history of ischemic heart disease and other diseases of the circulatory system; Z90.49 Acquired absence of other specified parts of digestive tract; G89.29 Other chronic pain
CPT/HCPCS: 36415; 71045; 74177; 74181; 74245; 80048; 80053; 80307; 81001; 82150; 82378; 82962; 83036; 83690; 83735; 84132; 85014; 85018; 85025; 85610; 86301; 93005; 96361; 96374; 96375; 96376; C9113; G0378; J1885; J1956; J2001; J2250; J2405; J2704; J3480; J3490

== ENCOUNTER → 2020-08-24 | Outpatient (CLI) | payer BC ==
[~2020-08-24] MED LIST changes: +SUCR1SUS10 PO; -SUCR1TAB22 OR
== END | disposition home or self-care (01) ==
LOC: LAB 07:28
PROVIDERS: ATTEND Nurse Practitioner Family
DX: Z01.812 Encounter for preprocedural laboratory examination (principal); Z20.828 Contact with and (suspected) exposure to other viral communicable diseases; Z01.818 Encounter for other preprocedural examination
CPT/HCPCS: C9803; U0003

== ENCOUNTER → 2020-08-25 | Outpatient (CLI) | payer BC ==
[2020-08-25 09:20] LABS: Basophils # (auto) 0 10 ^3/uL (0-0.2); Basophils % (auto) 0.8 % (0.0-2.0); Eosinophils # (auto) 0.2 10 ^3/uL (0-0.8); Eosinophils % (auto) 3.4 % (0.0-7.0); Hematocrit 38.2 % (36.0-46.0); Hemoglobin 12.9 g/dL (12.2-16.2); Lymphocytes % (auto) 36.6 % (10.0-50.0); Mean Corpuscular Hgb Conc. 33.8 g/dL (32.0-36.0); Mean Corpuscular Volume 88.9 fL (80.0-100.0); Monocytes # (auto) 0.4 10 ^3/uL (0-1.3); Monocytes % (auto) 6.9 % (0.0-12.0); Neutrophils # (auto) 2.8 10 ^3/uL (1.6-8.6); Neutrophils % (auto) 52.3 % (37.0-80.0); Nucleated Red Blood Cells % 0.2 %; Platelet Count (auto) 273 10^3/uL (140-450); Red Cell Distribution Width 13.2 % (11.8-14.3); White Blood Cell 5.4 10^3/uL (4.4-10.8)
[2020-08-25 09:25] LABS: Urine Bacteria NONE SEEN /hpf (None Seen); Urine Blood Negative /uL (Negative); Urine Specific Gravity 1.017 (1.001-1.035); Urine WBC 7 /hpf (0 - 5)
[2020-08-25 09:37] LABS: INR 0.95 (0.9-1.15); Partial Thromboplastin Time 25.3 sec (23.0-31.2)
[2020-08-25 09:56] LABS: Potassium 3.7 mmol/L (3.5-5.1)
[2020-08-25 10:05] LABS: Albumin 3.5 g/dL (3.4-5.0); BUN/Creatinine Ratio 42.6; Bilirubin, Total 0.5 mg/dL (0.2-1.0); Total Protein 6.9 g/dL (6.4-8.2)
== END | disposition home or self-care (01) ==
LOC: LAB 08:48
PROVIDERS: ATTEND Internal Medicine
DX: Z01.818 Encounter for other preprocedural examination (principal); I10 Essential (primary) hypertension; J44.9 Chronic obstructive pulmonary disease, unspecified
CPT/HCPCS: 36415; 80053; 80061; 81001; 84439; 84443; 85025; 85610; 85652; 85730

== ENCOUNTER 2021-09-27 12:49 | Inpatient (IN) | payer BC ==
[~2021-09-27] VITALS: Ht 149.9 cm; Wt 73.2 kg
[~2021-09-27 12:49] MED LIST changes: +CHLO25TA2 PO; -CHLO25TA22 PO; -LISI-648 PO; +LISI-716 PO
[2021-09-27] MEDS ORDERED: SODIUM CHLORIDE 0.9% 500 ML IVB ONE (13:15)
[2021-09-27] MEDS ORDERED: ONDANSETRON HCL 4 MG/2 ML VIAL IV ONE (13:15)
[2021-09-27] MEDS ORDERED: MORPHINE SULFATE 4 MG/ML SYR/VIAL IV ONE ×2 (13:15→18:30)
[2021-09-27] MEDS ORDERED: PANTOPRAZOLE 40 MG/10 ML VIAL INJ IV ONE ×2 (13:30→19:00)
[2021-09-27 14:53] LABS: Albumin 3.2 g/dL (3.4-5.0); Calcium 7.7 mg/dL (8.5-10.1)
[2021-09-27 14:56] LABS: BUN/Creatinine Ratio 44.2; Bilirubin, Total 0.4 mg/dL (0.2-1.0); Total Protein 6.5 g/dL (6.4-8.2)
[2021-09-27] MEDS ORDERED: IOHEXOL 300 MG/ML 100ML BOTTLE IJ ONE (15:06)
[2021-09-27 15:48] LABS: Basophils # (auto) 0 10 ^3/uL (0-0.2); Basophils % (auto) 0.3 % (0.0-2.0); Eosinophils # (auto) 0 10 ^3/uL (0-0.8); Eosinophils % (auto) 0.1 % (0.0-7.0); Hemoglobin 12.6 g/dL (12.2-16.2); Lymphocytes # (auto) 0.9 10 ^3/uL (0.4-5.4); Mean Corpuscular Hemoglobin 29.1 pg (28.0-32.0); Mean Corpuscular Hgb Conc. 33.1 g/dL (32.0-36.0); Mean Corpuscular Volume 87.7 fL (80.0-100.0); Monocytes # (auto) 0.2 10 ^3/uL (0-1.3); Monocytes % (auto) 1.9 % (0.0-12.0); Neutrophils # (auto) 10.3 10 ^3/uL (1.6-8.6); Neutrophils % (auto) 89.7 % (37.0-80.0); Red Blood Cells 4.33 10^6/uL (4.0-5.20); Red Cell Distribution Width 13.4 % (11.8-14.3); White Blood Cell 11.5 10^3/uL (4.4-10.8)
[2021-09-27 16:30] LABS: INR 1.03 (0.9-1.15); Partial Thromboplastin Time 24.5 sec (23.6-33.0)
[2021-09-27] MEDS ORDERED: ONDANSETRON HCL 4 MG/2 ML VIAL ONE (17:12)
[2021-09-27] MEDS ORDERED: NITROGLYCERIN 0.4 MG SL TAB SL PRN ×2 (18:45→19:00)
[2021-09-27] MEDS ORDERED: MORPHINE SULFATE INJECTION 2 MG/ML SYRG IV PRN ×2 (18:45→19:00)
[2021-09-27] MEDS ORDERED: ALBUTEROL SULF 2.5 MG/0.5ML(0.5%) NEB SOLN NEB PRN (19:00)
[2021-09-27] MEDS ORDERED: IPRATROPIUM BROM 0.5 MG/2.5ML INH SOL NEB ONE (19:00)
[2021-09-27] MEDS ORDERED: BENAZEPRIL HCL 10 MG TAB PO ONE (19:00)
[2021-09-27] MEDS ORDERED: AZITHROMYCIN 500MG/ 250ML 250 ML IV ONE (19:00)
[2021-09-27] MEDS ORDERED: ALBUTEROL SULF 2.5 MG/0.5ML(0.5%) NEB SOLN NEB ONE (19:00)
[2021-09-27] MEDS ORDERED: ALUM & MAG HYDROX-SIMETH LIQ(MAALOX) 30 ML PO PRN (19:00)
[2021-09-27] MEDS ORDERED: LORazepam 0.5 MG TAB PO PRN (19:00)
[2021-09-27] MEDS ORDERED: SUCRALFATE 1 GM/10 ML ORAL SUSP PO ONE (19:00)
[2021-09-27] MEDS ORDERED: PROMETHAZINE W/CODEINE 5 ML ORAL SYRUP PO PRN (19:00)
[2021-09-27] MEDS ORDERED: DOCUSATE SOD 100 MG CAP PO PRN (19:00)
[2021-09-27] MEDS ORDERED: PROMETHAZINE W/CODEINE 5 ML ORAL SYRUP PO ONE (19:00)
[2021-09-27] MEDS: SODIUM CHLORIDE 0.9% 1,000 ML IV SCH (19:51)
[2021-09-27] MEDS: HYDROcodone-ACET 5/325MG TAB PO PRN (20:51)
[2021-09-27] MEDS: SUCRALFATE 1 GM/10 ML ORAL SUSP PO SCH (21:54)
[2021-09-27] MEDS: methylPREDNISolone SOD SUCC 40 MG/ML VL IV SCH (21:54)
[2021-09-27] MEDS ORDERED: ATORVASTATIN 20 MG TAB PO SCH (22:00)
[2021-09-27] MEDS ORDERED: IPRATROPIUM BROM 0.5 MG/2.5ML INH SOL NEB SCH (22:00)
[2021-09-27 23:00] VITALS: BP 154/83
[2021-09-27 23:17] VITALS: BP 175/98
[2021-09-27] MEDS: ONDANSETRON HCL 4 MG/2 ML VIAL IV PRN (23:42)
[2021-09-27] MEDS: MORPHINE SULFATE INJECTION 2 MG/ML SYRG IV PRN (23:43)
[2021-09-28] MEDS: ONDANSETRON HCL 4 MG/2 ML VIAL IV PRN ×2 (04:26→09:20)
[2021-09-28] MEDS: MORPHINE SULFATE INJECTION 2 MG/ML SYRG IV PRN (04:39)
[2021-09-28] MEDS ORDERED: IPRATROPIUM BROM 0.5 MG/2.5ML INH SOL NEB PRN (06:00)
[2021-09-28] MEDS: methylPREDNISolone SOD SUCC 40 MG/ML VL IV SCH ×2 (06:29→13:25)
[2021-09-28] MEDS: SUCRALFATE 1 GM/10 ML ORAL SUSP PO SCH ×4 (06:30→22:07)
[2021-09-28 06:39] LABS: Basophils # (auto) 0 10 ^3/uL (0-0.2); Eosinophils # (auto) 0 10 ^3/uL (0-0.8); Eosinophils % (auto) 0.1 % (0.0-7.0); Hematocrit 41.2 % (36.0-46.0); Hemoglobin 13.6 g/dL (12.2-16.2); Lymphocytes % (auto) 12.3 % (10.0-50.0); Mean Corpuscular Hemoglobin 29.2 pg (28.0-32.0); Mean Corpuscular Volume 88.3 fL (80.0-100.0); Monocytes # (auto) 0.1 10 ^3/uL (0-1.3); Monocytes % (auto) 1.2 % (0.0-12.0); Neutrophils # (auto) 7.2 10 ^3/uL (1.6-8.6); Neutrophils % (auto) 86.4 % (37.0-80.0); Red Blood Cells 4.67 10^6/uL (4.0-5.20); Red Cell Distribution Width 13.7 % (11.8-14.3); White Blood Cell 8.3 10^3/uL (4.4-10.8)
[2021-09-28 06:57] LABS: INR 0.99 (0.9-1.15); Partial Thromboplastin Time 24.5 sec (23.6-33.0); Potassium 3.1 mmol/L (3.5-5.1)
[2021-09-28 07:06] LABS: Albumin 3.5 g/dL (3.4-5.0); BUN/Creatinine Ratio 34.8; Bilirubin, Total 0.4 mg/dL (0.2-1.0); Calcium 8.3 mg/dL (8.5-10.1); Magnesium 2.6 mg/dL (1.6-2.6); Phosphorus 2.2 mg/dL (2.5-4.90); Total Protein 7.4 g/dL (6.4-8.2); Uric Acid 3.7 mg/dL (2.6-6.0)
[2021-09-28 08:30] VITALS: BP 166/97
[2021-09-28 09:01] VITALS: BP 166/97
[2021-09-28] MEDS: AZITHROMYCIN 500MG/ 250ML 250 ML IV SCH (09:18)
[2021-09-28] MEDS: PANTOPRAZOLE 40 MG/10 ML VIAL INJ IV SCH (09:18)
[2021-09-28] MEDS: HYDROcodone-ACET 5/325MG TAB PO PRN (09:19)
[2021-09-28] MEDS: BENAZEPRIL HCL 10 MG TAB PO SCH (09:19)
[2021-09-28] MEDS: hydrALAZINE HCL 20 MG/ML VL IV PRN (09:21)
[2021-09-28] MEDS ORDERED: ASPirin 81 mg TAB PO SCH (10:00)
[2021-09-28] MEDS: SODIUM CHLORIDE 0.9% 1,000 ML IV SCH ×2 (11:40→16:57)
[2021-09-28 12:55] VITALS: BP 114/62
[2021-09-28] MEDS ORDERED: cefTRIAXone 1GM/50ML D5W 50 ML IV ONE (14:00)
[2021-09-28] MEDS: POTASSIUM CHL 20MEQ/100ML 100 ML IV SCH ×2 (16:00→18:49)
[2021-09-28 17:19] VITALS: BP 116/67
[2021-09-28] MEDS: ACETAMINOPHEN 325 MG TAB PO PRN (19:58)
[2021-09-28 22:00] VITALS: BP 131/72
[2021-09-28] MEDS: METOPROLOL TARTRATE 25 MG TAB PO SCH (22:07)
[2021-09-29] VITALS (7 sets, daily range): BP systolic 117–193; BP diastolic 48–106
[2021-09-29] MEDS: ACETAMINOPHEN 325 MG TAB PO PRN ×2 (03:28→22:59)
[2021-09-29] MEDS: SUCRALFATE 1 GM/10 ML ORAL SUSP PO SCH (06:49)
[2021-09-29] MEDS: ONDANSETRON HCL 4 MG/2 ML VIAL IV PRN (06:54)
[2021-09-29 07:48] LABS: Basophils # (auto) 0 10 ^3/uL (0-0.2); Basophils % (auto) 0.2 % (0.0-2.0); Eosinophils # (auto) 0 10 ^3/uL (0-0.8); Hematocrit 36.9 % (36.0-46.0); Hemoglobin 12.2 g/dL (12.2-16.2); Lymphocytes # (auto) 2.6 10 ^3/uL (0.4-5.4); Mean Corpuscular Hemoglobin 29.4 pg (28.0-32.0); Mean Corpuscular Hgb Conc. 33.1 g/dL (32.0-36.0); Mean Corpuscular Volume 88.6 fL (80.0-100.0); Monocytes # (auto) 0.8 10 ^3/uL (0-1.3); Monocytes % (auto) 6.6 % (0.0-12.0); Neutrophils # (auto) 8.3 10 ^3/uL (1.6-8.6); Neutrophils % (auto) 71.2 % (37.0-80.0); Nucleated Red Blood Cells % 0.1 %; Red Blood Cells 4.16 10^6/uL (4.0-5.20); Red Cell Distribution Width 13.4 % (11.8-14.3); White Blood Cell 11.6 10^3/uL (4.4-10.8)
[2021-09-29 07:54] LABS: Potassium 3.3 mmol/L (3.5-5.1)
[2021-09-29 08:03] LABS: Albumin 2.9 g/dL (3.4-5.0); BUN/Creatinine Ratio 44.2; Bilirubin, Total 0.3 mg/dL (0.2-1.0); Calcium 8.1 mg/dL (8.5-10.1); Magnesium 2.8 mg/dL (1.6-2.6)
[2021-09-29] MEDS: MORPHINE SULFATE INJECTION 2 MG/ML SYRG IV PRN (08:35)
[2021-09-29] MEDS: cefTRIAXone 1GM/50ML D5W 50 ML IV SCH (08:36)
[2021-09-29] MEDS: AZITHROMYCIN 500MG/ 250ML 250 ML IV SCH (09:30)
[2021-09-29] MEDS: hydrALAZINE HCL 20 MG/ML VL IV PRN (09:30)
[2021-09-29] MEDS ORDERED: VANCOMYCIN PER PHARMACY 0 MG IV SCH (09:30)
[2021-09-29] MEDS: PANTOPRAZOLE 40 MG/10 ML VIAL INJ IV SCH (09:30)
[2021-09-29] MEDS: BENAZEPRIL HCL 10 MG TAB PO SCH (10:00)
[2021-09-29] MEDS: METOPROLOL TARTRATE 25 MG TAB PO SCH ×2 (10:00→22:25)
[2021-09-29] MEDS ORDERED: VANCOMYCIN 1GM/250ML 250 ML IV SCH (10:00)
[2021-09-29] MEDS: PROMETHAZINE HCL 25 MG/ML 1ML IV PRN ×2 (11:30→22:58)
[2021-09-29] MEDS ORDERED: AZITHROMYCIN 500MG/ 250ML 250 ML IV SCH (12:00)
[2021-09-29] MEDS ORDERED: FAMOTIDINE (10MG/ML) 2ML VL IV ONE (12:36)
[2021-09-29] MEDS ORDERED: MIDAZOLAM HCL 2MG/2ML 2ml VIAL (1mg/ml) ONE (12:38)
[2021-09-29] MEDS ORDERED: fentaNYL CITRATE 100 MCG/2 ML VL ONE (12:38)
[2021-09-29] MEDS ORDERED: HYDROmorphone HCL 2 MG/ML VL ONE (12:38)
[2021-09-29] MEDS ORDERED: PROPOFOL 10 MG/ML 20 ML IV ONE (12:39)
[2021-09-29] MEDS ORDERED: LIDOCAINE 2% (LOCAL ANESTH.) PF 5ml SDV ONE (12:39)
[2021-09-29] MEDS ORDERED: GLYCOPYRROLATE 0.2 MG/ML 1ML VIAL ONE (12:39)
[2021-09-29] MEDS ORDERED: DexAMETHasone SOD PHOS 10MG/1ML VIAL INJ ONE (12:39)
[2021-09-29] MEDS ORDERED: ONDANSETRON HCL 4 MG/2 ML VIAL ONE (12:39)
[2021-09-29] MEDS ORDERED: BUPIVACAINE 0.25% INJ 50ML VIAL ONE (12:47)
[2021-09-29] MEDS ORDERED: LIDOCAINE 1%-Mpf/Epinephrine 1:200,000 ONE (12:47)
[2021-09-29] MEDS ORDERED: HYDROmorphone HCL 2 MG/ML VL IV PRN (14:15)
[2021-09-29] MEDS ORDERED: ONDANSETRON HCL 4 MG/2 ML VIAL IV PRN (14:15)
[2021-09-29] MEDS: POTASSIUM CHL 20MEQ/100ML 100 ML IV SCH ×2 (15:49→17:53)
[2021-09-29] MEDS ORDERED: POTASSIUM CHL 20MEQ/100ML 100 ML IV ONE (17:12)
[2021-09-29] MEDS: VANCOMYCIN 1GM/250ML 250 ML IV SCH (20:02)
[2021-09-30] MEDS: SODIUM CHLORIDE 0.9% 1,000 ML IV SCH ×3 (01:06→15:19)
[2021-09-30 05:20] VITALS: BP 151/71
[2021-09-30 06:46] LABS: Basophils # (auto) 0 10 ^3/uL (0-0.2); Basophils % (auto) 0.2 % (0.0-2.0); Eosinophils # (auto) 0 10 ^3/uL (0-0.8); Hematocrit 35.3 % (36.0-46.0); Hemoglobin 11.9 g/dL (12.2-16.2); Lymphocytes # (auto) 1.9 10 ^3/uL (0.4-5.4); Lymphocytes % (auto) 20.9 % (10.0-50.0); Mean Corpuscular Hemoglobin 29.7 pg (28.0-32.0); Mean Corpuscular Hgb Conc. 33.8 g/dL (32.0-36.0); Monocytes # (auto) 0.7 10 ^3/uL (0-1.3); Monocytes % (auto) 7.2 % (0.0-12.0); Neutrophils # (auto) 6.5 10 ^3/uL (1.6-8.6); Neutrophils % (auto) 71.7 % (37.0-80.0); Nucleated Red Blood Cells % 0.3 %; Red Blood Cells 4.01 10^6/uL (4.0-5.20); Red Cell Distribution Width 13.3 % (11.8-14.3); White Blood Cell 9.1 10^3/uL (4.4-10.8)
[2021-09-30] MEDS: PROMETHAZINE HCL 25 MG/ML 1ML IV PRN ×3 (06:48→18:44)
[2021-09-30] MEDS: MORPHINE SULFATE INJECTION 2 MG/ML SYRG IV PRN ×3 (06:55→18:44)
[2021-09-30 07:00] LABS: Potassium 3.6 mmol/L (3.5-5.1)
[2021-09-30 07:06] LABS: BUN/Creatinine Ratio 47.2; Calcium 7.9 mg/dL (8.5-10.1)
[2021-09-30] MEDS: VANCOMYCIN 1GM/250ML 250 ML IV SCH (09:14)
[2021-09-30] MEDS: cefTRIAXone 1GM/50ML D5W 50 ML IV SCH (09:15)
[2021-09-30 09:22] VITALS: BP 196/99
[2021-09-30] MEDS: PANTOPRAZOLE 40 MG/10 ML VIAL INJ IV SCH (09:53)
[2021-09-30] MEDS ORDERED: METOCLOPRAMIDE HCL 5MG/ml INJ 2ml VIAL IV ONE (10:00)
[2021-09-30] MEDS: METOPROLOL TARTRATE 25 MG TAB PO SCH ×2 (10:17→21:44)
[2021-09-30] MEDS: BENAZEPRIL HCL 10 MG TAB PO SCH (10:18)
[2021-09-30 12:22] VITALS: BP 159/76
[2021-09-30] MEDS ORDERED: KETOROLAC TROMETH 30 MG/ML 1ML VIAL IV PRN (14:45)
[2021-09-30 16:37] VITALS: BP 167/93
[2021-09-30] MEDS: hydrALAZINE HCL 20 MG/ML VL IV PRN (16:59)
[2021-09-30] MEDS ORDERED: METOCLOPRAMIDE HCL 5MG/ml INJ 2ml VIAL IV PRN (18:00)
[2021-09-30 20:05] VITALS: BP 146/81
[2021-09-30] MEDS: METOCLOPRAMIDE HCL 5MG/ml INJ 2ml VIAL IV SCH (21:43)
[2021-09-30 22:00] VITALS: BP 146/81
[2021-10-01] VITALS (7 sets, daily range): BP systolic 140–176; BP diastolic 73–108
[2021-10-01] MEDS: PROMETHAZINE HCL 25 MG/ML 1ML IV PRN ×4 (04:41→22:36)
[2021-10-01 06:01] LABS: Hematocrit 44.6 % (36.0-46.0); Hemoglobin 14.6 g/dL (12.2-16.2)
[2021-10-01] MEDS: METOCLOPRAMIDE HCL 5MG/ml INJ 2ml VIAL IV SCH ×3 (06:06→20:07)
[2021-10-01 06:27] LABS: Magnesium 2.4 mg/dL (1.6-2.6)
[2021-10-01 06:48] LABS: Potassium 2.8 mmol/L (3.5-5.1)
[2021-10-01] MEDS: POTASSIUM CHL 20MEQ/100ML 100 ML IV SCH ×3 (07:34→13:42)
[2021-10-01] MEDS: SODIUM CHLORIDE 0.9% 1,000 ML IV SCH ×2 (07:34→22:28)
[2021-10-01] MEDS: PANTOPRAZOLE 40 MG/10 ML VIAL INJ IV SCH (10:35)
[2021-10-01] MEDS: cefTRIAXone 1GM/50ML D5W 50 ML IV SCH (10:35)
[2021-10-01] MEDS: BENAZEPRIL HCL 10 MG TAB PO SCH (10:36)
[2021-10-01] MEDS: METOPROLOL TARTRATE 25 MG TAB PO SCH ×2 (10:36→22:28)
[2021-10-01] MEDS ORDERED: PROM25SU34 PO (11:54)
[2021-10-01] MEDS ORDERED: CHOL20007 PO (12:17)
[2021-10-01] MEDS ORDERED: LEVO500T31 PO (13:43)
[2021-10-01] MEDS: MORPHINE SULFATE INJECTION 2 MG/ML SYRG IV PRN (20:22)
[2021-10-02] MEDS: MORPHINE SULFATE INJECTION 2 MG/ML SYRG IV PRN ×2 (00:39→19:52)
[2021-10-02] MEDS: METOCLOPRAMIDE HCL 5MG/ml INJ 2ml VIAL IV SCH ×3 (04:53→19:53)
[2021-10-02 05:03] VITALS: BP 134/74
[2021-10-02] MEDS: PROMETHAZINE HCL 25 MG/ML 1ML IV PRN ×2 (07:00→08:34)
[2021-10-02 08:00] VITALS: BP 129/79
[2021-10-02] MEDS: cefTRIAXone 1GM/50ML D5W 50 ML IV SCH (08:42)
[2021-10-02] MEDS: PANTOPRAZOLE 40 MG/10 ML VIAL INJ IV SCH (08:42)
[2021-10-02] MEDS: BENAZEPRIL HCL 10 MG TAB PO SCH (08:43)
[2021-10-02] MEDS: METOPROLOL TARTRATE 25 MG TAB PO SCH ×2 (08:44→21:25)
[2021-10-02 09:00] VITALS: BP 165/105
[2021-10-02] MEDS ORDERED: METOPROLOL TARTRATE 25 MG TAB PO ONE (12:45)
[2021-10-02 13:00] VITALS: BP 159/96
[2021-10-02] MEDS ORDERED: FUROSEMIDE 40 MG/4 ML VIAL IV ONE (15:00)
[2021-10-02] MEDS ORDERED: POTASSIUM CHL 20 Meq TABLET PO ONE (15:00)
[2021-10-02] MEDS ORDERED: FUROSEMIDE 20 MG/2 ML VIAL IV ONE (16:00)
[2021-10-02 16:31] VITALS: BP 180/89
[2021-10-02 22:00] VITALS: BP 110/66
[2021-10-03] MEDS ORDERED: ONDANSETRON HCL 4 MG/2 ML VIAL IV PRN (00:15)
[2021-10-03 05:03] VITALS: BP 117/72
[2021-10-03] MEDS: METOCLOPRAMIDE HCL 5MG/ml INJ 2ml VIAL IV SCH (05:31)
[2021-10-03 08:00] VITALS: BP 132/71
[2021-10-03] MEDS ORDERED: FURO1TAB33 PO (08:53)
[2021-10-03 09:00] VITALS: BP 132/71
[2021-10-03] MEDS ORDERED: levoFLOXacin 500 MG TAB PO SCH (10:00)
[2021-10-03] MEDS: BENAZEPRIL HCL 10 MG TAB PO SCH (10:25)
[2021-10-03] MEDS: METOPROLOL TARTRATE 25 MG TAB PO SCH (10:25)
== END 2021-10-03 11:38 | disposition home or self-care (01) | DRG 353 ==
LOC: ER 12:49 → EEVIPCON 12:49 → OVERFLOW 18:42 → CENTRAL 22:24
PROVIDERS: ADMIT Hospitalist; ATTEND Internal Medicine
PROC: 0WQF0ZZ Repair Abdominal Wall, Open Approach (ICD-10-PCS; principal; 2021-09-29 12:55)
DX: K43.0 Incisional hernia with obstruction, without gangrene (principal); I21.A1 Myocardial infarction type 2; I16.9 Hypertensive crisis, unspecified; J45.41 Moderate persistent asthma with (acute) exacerbation; K44.0 Diaphragmatic hernia with obstruction, without gangrene; E55.9 Vitamin D deficiency, unspecified; E66.01 Morbid (severe) obesity due to excess calories; E78.5 Hyperlipidemia, unspecified; E87.6 Hypokalemia; E88.09 Other disorders of plasma-protein metabolism, not elsewhere classified; I10 Essential (primary) hypertension; Z20.822 Contact with and (suspected) exposure to COVID-19; K21.9 Gastro-esophageal reflux disease without esophagitis; A49.01 Methicillin susceptible Staphylococcus aureus infection, unspecified site; K42.9 Umbilical hernia without obstruction or gangrene; Z79.899 Other long term (current) drug therapy; Z82.49 Family history of ischemic heart disease and other diseases of the circulatory system; Z80.9 Family history of malignant neoplasm, unspecified; Z83.3 Family history of diabetes mellitus; Z87.891 Personal history of nicotine dependence; Z90.49 Acquired absence of other specified parts of digestive tract; Z68.33 Body mass index [BMI] 33.0-33.9, adult
CPT/HCPCS: 36415; 71045; 74177; 80048; 80053; 82150; 82306; 82565; 83036; 83690; 83735; 83880; 84100; 84132; 84443; 84484; 84550; 85014; 85018; 85025; 85379; 85610; 85730; 86850; 86900; 86901; 87040; 87077; 87186; 87426; 93005; 93306; 96361; 96365; 96375; 96376; C9113; G0378; J0696; J1100; J2001; J2250; J2405; J2704; J3480; J3490

== ENCOUNTER 2021-10-04 12:57 | Inpatient (IN) | payer BC ==
[~2021-10-04] VITALS: Ht 149.9 cm; Wt 71.9 kg
[~2021-10-04 12:57] MED LIST changes: +CHOL20007 PO; +FURO1TAB33 PO; +LEVO500T31 PO; +PROM25SU34 PO
[2021-10-04] MEDS ORDERED: PANTOPRAZOLE 40 MG/10 ML VIAL INJ IV ONE (13:15)
[2021-10-04] MEDS ORDERED: ONDANSETRON HCL 4 MG/2 ML VIAL IV ONE (13:15)
[2021-10-04] MEDS ORDERED: MORPHINE SULFATE 4 MG/ML SYR/VIAL IV ONE (13:15)
[2021-10-04 13:55] LABS: Basophils # (auto) 0.1 10 ^3/uL (0-0.2); Basophils % (auto) 0.3 % (0.0-2.0); Eosinophils # (auto) 0.1 10 ^3/uL (0-0.8); Eosinophils % (auto) 0.3 % (0.0-7.0); Hematocrit 45.3 % (36.0-46.0); Hemoglobin 15.3 g/dL (12.2-16.2); Lymphocytes # (auto) 2.6 10 ^3/uL (0.4-5.4); Lymphocytes % (auto) 13.3 % (10.0-50.0); Mean Corpuscular Hemoglobin 29.1 pg (28.0-32.0); Mean Corpuscular Hgb Conc. 33.7 g/dL (32.0-36.0); Mean Corpuscular Volume 86.2 fL (80.0-100.0); Monocytes # (auto) 0.9 10 ^3/uL (0-1.3); Monocytes % (auto) 4.6 % (0.0-12.0); Neutrophils # (auto) 16.1 10 ^3/uL (1.6-8.6); Neutrophils % (auto) 81.5 % (37.0-80.0); Nucleated Red Blood Cells % 0.1 %; Red Blood Cells 5.25 10^6/uL (4.0-5.20); Red Cell Distribution Width 13.2 % (11.8-14.3); White Blood Cell 19.7 10^3/uL (4.4-10.8)
[2021-10-04 14:15] LABS: Albumin 3.6 g/dL (3.4-5.0); Calcium 8.7 mg/dL (8.5-10.1); Potassium 3.3 mmol/L (3.5-5.1)
[2021-10-04 14:18] LABS: BUN/Creatinine Ratio 34.8; Bilirubin, Total 0.6 mg/dL (0.2-1.0); Total Protein 7.8 g/dL (6.4-8.2)
[2021-10-04] MEDS ORDERED: POTASSIUM CHL 20MEQ/100ML 100 ML IV ONE (15:45)
[2021-10-04] MEDS ORDERED: PROMETHAZINE HCL 25 MG/ML 1ML IV ONE (17:00)
[2021-10-04] MEDS ORDERED: SODIUM CHLORIDE 0.9% 500 ML IV ONE (19:30)
[2021-10-04] MEDS ORDERED: MORPHINE SULFATE 4 MG/ML SYR/VIAL IV PRN (19:30)
[2021-10-04] MEDS ORDERED: ALBUTEROL SULF 2.5 MG/0.5ML(0.5%) NEB SOLN NEB PRN (19:30)
[2021-10-04] MEDS: SODIUM CHLORIDE 0.9% 1,000 ML IV SCH (20:07)
[2021-10-04] MEDS: LABETALOL HCL 5 MG/ML 4ML SYRINGE IV PRN (20:25)
[2021-10-04 20:29] LABS: Urine Amorphous Crystal FEW /hpf (None Seen); Urine Bacteria NONE SEEN /hpf (None Seen); Urine Blood Negative /uL (Negative); Urine Mucus FEW (None Seen); Urine Specific Gravity 1.022 (1.001-1.035); Urine WBC 4 /hpf (0 - 5)
[2021-10-04] MEDS: ONDANSETRON HCL 4 MG/2 ML VIAL IV PRN (22:53)
[2021-10-05 05:00] VITALS: BP 122/73
[2021-10-05 06:28] LABS: Basophils # (auto) 0 10 ^3/uL (0-0.2); Basophils % (auto) 0.2 % (0.0-2.0); Eosinophils # (auto) 0.6 10 ^3/uL (0-0.8); Hematocrit 35.8 % (36.0-46.0); Hemoglobin 12.1 g/dL (12.2-16.2); Lymphocytes # (auto) 3.6 10 ^3/uL (0.4-5.4); Lymphocytes % (auto) 28.7 % (10.0-50.0); Mean Corpuscular Hemoglobin 29.5 pg (28.0-32.0); Mean Corpuscular Hgb Conc. 33.9 g/dL (32.0-36.0); Mean Corpuscular Volume 87.1 fL (80.0-100.0); Monocytes # (auto) 0.9 10 ^3/uL (0-1.3); Monocytes % (auto) 7.1 % (0.0-12.0); Neutrophils # (auto) 7.4 10 ^3/uL (1.6-8.6); Red Blood Cells 4.11 10^6/uL (4.0-5.20); White Blood Cell 12.5 10^3/uL (4.4-10.8)
[2021-10-05 06:41] LABS: Albumin 2.7 g/dL (3.4-5.0); Calcium 7.7 mg/dL (8.5-10.1); Potassium 3.1 mmol/L (3.5-5.1)
[2021-10-05 06:45] LABS: BUN/Creatinine Ratio 46.8; Bilirubin, Total 0.5 mg/dL (0.2-1.0); Total Protein 5.6 g/dL (6.4-8.2)
[2021-10-05 07:30] VITALS: BP 124/69
[2021-10-05] MEDS: SODIUM CHLORIDE 0.9% 1,000 ML IV SCH (08:37)
[2021-10-05] MEDS: ONDANSETRON HCL 4 MG/2 ML VIAL IV PRN (08:38)
[2021-10-05 09:00] VITALS: BP 165/88
[2021-10-05] MEDS ORDERED: cefTRIAXone 1GM/50ML D5W 50 ML IV SCH (09:00)
[2021-10-05] MEDS ORDERED: PANTOPRAZOLE 40 MG/10 ML VIAL INJ IV SCH (10:00)
[2021-10-05] MEDS: PROMETHAZINE HCL 25 MG/ML 1ML IV PRN ×2 (10:49→18:05)
[2021-10-05] MEDS: LABETALOL HCL 5 MG/ML 4ML SYRINGE IV PRN ×2 (11:22→18:06)
[2021-10-05 11:58] VITALS: BP 188/98
[2021-10-05] MEDS ORDERED: KETOROLAC TROMETH 30 MG/ML 1ML VIAL IV PRN (13:30)
[2021-10-05] MEDS: D5W/ SOD CHL 0.9%/KCL 20MEQ 1,000 ML IV SCH (15:40)
[2021-10-05] MEDS: POTASSIUM CHL 20MEQ/100ML 100 ML IV SCH ×2 (15:41→18:04)
[2021-10-05] MEDS: SUCRALFATE 1 GM/10 ML ORAL SUSP PO SCH ×2 (15:42→22:00)
[2021-10-05 16:00] VITALS: BP 154/74
[2021-10-05 22:00] VITALS: BP 113/85
[2021-10-05] MEDS: PANTOPRAZOLE 40 MG/10 ML VIAL INJ IV SCH (22:00)
[2021-10-06] MEDS: D5W/ SOD CHL 0.9%/KCL 20MEQ 1,000 ML IV SCH ×2 (06:10→11:19)
[2021-10-06 06:19] VITALS: BP 112/64
[2021-10-06] MEDS: PROMETHAZINE HCL 25 MG/ML 1ML IV PRN ×3 (06:23→17:22)
[2021-10-06] MEDS: SUCRALFATE 1 GM/10 ML ORAL SUSP PO SCH ×4 (06:46→21:58)
[2021-10-06 06:51] LABS: Basophils # (auto) 0.1 10 ^3/uL (0-0.2); Basophils % (auto) 0.5 % (0.0-2.0); Eosinophils # (auto) 0.8 10 ^3/uL (0-0.8); Eosinophils % (auto) 7.4 % (0.0-7.0); Hematocrit 35.8 % (36.0-46.0); Hemoglobin 11.9 g/dL (12.2-16.2); Lymphocytes # (auto) 3.3 10 ^3/uL (0.4-5.4); Lymphocytes % (auto) 31.4 % (10.0-50.0); Mean Corpuscular Hgb Conc. 33.2 g/dL (32.0-36.0); Mean Corpuscular Volume 87.3 fL (80.0-100.0); Monocytes # (auto) 0.9 10 ^3/uL (0-1.3); Monocytes % (auto) 8.5 % (0.0-12.0); Neutrophils # (auto) 5.5 10 ^3/uL (1.6-8.6); Neutrophils % (auto) 52.2 % (37.0-80.0); Nucleated Red Blood Cells % 0.1 %; Red Blood Cells 4.09 10^6/uL (4.0-5.20); Red Cell Distribution Width 12.8 % (11.8-14.3); White Blood Cell 10.5 10^3/uL (4.4-10.8)
[2021-10-06 07:09] LABS: Potassium 3.6 mmol/L (3.5-5.1)
[2021-10-06 07:14] LABS: BUN/Creatinine Ratio 23.4; Calcium 7.7 mg/dL (8.5-10.1); Magnesium 2.6 mg/dL (1.6-2.6)
[2021-10-06 09:00] VITALS: BP 179/86
[2021-10-06] MEDS ORDERED: LISINOPRIL 20 MG TAB PO ONE (10:15)
[2021-10-06] MEDS ORDERED: POTASSIUM EFFERVESENT TAB 25 MEQ PO ONE (10:15)
[2021-10-06] MEDS: PANTOPRAZOLE 40 MG/10 ML VIAL INJ IV SCH ×2 (11:18→21:58)
[2021-10-06 13:00] VITALS: BP 195/91
[2021-10-06] MEDS: LABETALOL HCL 5 MG/ML 4ML SYRINGE IV PRN ×2 (13:47→18:09)
[2021-10-06] MEDS ORDERED: HYDROcodone-ACET 5/325MG TAB PO PRN (15:30)
[2021-10-06 17:00] VITALS: BP 157/78
[2021-10-06 22:00] VITALS: BP 90/46
[2021-10-07 05:00] VITALS: BP 90/45
[2021-10-07 05:44] LABS: Potassium 3.9 mmol/L (3.5-5.1)
[2021-10-07 05:47] LABS: Magnesium 2.2 mg/dL (1.6-2.6)
[2021-10-07] MEDS: D5W/ SOD CHL 0.9%/KCL 20MEQ 1,000 ML IV SCH (06:48)
[2021-10-07] MEDS: SUCRALFATE 1 GM/10 ML ORAL SUSP PO SCH ×3 (06:48→16:42)
[2021-10-07 08:00] VITALS: BP 167/61
[2021-10-07 09:00] VITALS: BP 167/61
[2021-10-07] MEDS: PROMETHAZINE HCL 25 MG/ML 1ML IV PRN (09:10)
[2021-10-07] MEDS: PANTOPRAZOLE 40 MG/10 ML VIAL INJ IV SCH (09:10)
[2021-10-07] MEDS ORDERED: LISINOPRIL 20 MG TAB PO SCH (10:00)
[2021-10-07 13:00] VITALS: BP 130/60
[2021-10-07 15:09] VITALS: BP 130/60
== END 2021-10-07 16:50 | disposition home or self-care (01) | DRG 392 ==
LOC: EEVIPCON 12:57 → ER 12:57 → OVERFLOW 19:27 → WEST WING 22:18
PROVIDERS: ADMIT Nurse Practitioner; ATTEND Internal Medicine
DX: R11.2 Nausea with vomiting, unspecified (principal); E87.1 Hypo-osmolality and hyponatremia; R65.10 Systemic inflammatory response syndrome (SIRS) of non-infectious origin without acute organ dysfunction; D72.829 Elevated white blood cell count, unspecified; E11.9 Type 2 diabetes mellitus without complications; E55.9 Vitamin D deficiency, unspecified; E66.9 Obesity, unspecified; E78.5 Hyperlipidemia, unspecified; I10 Essential (primary) hypertension; J45.909 Unspecified asthma, uncomplicated; K21.9 Gastro-esophageal reflux disease without esophagitis; E87.6 Hypokalemia; E87.8 Other disorders of electrolyte and fluid balance, not elsewhere classified; E88.09 Other disorders of plasma-protein metabolism, not elsewhere classified; Z80.9 Family history of malignant neoplasm, unspecified; Z82.49 Family history of ischemic heart disease and other diseases of the circulatory system; Z90.49 Acquired absence of other specified parts of digestive tract; Z98.891 History of uterine scar from previous surgery; Z98.51 Tubal ligation status; Z20.822 Contact with and (suspected) exposure to COVID-19; Z68.32 Body mass index [BMI] 32.0-32.9, adult
CPT/HCPCS: 36415; 74176; 80048; 80053; 81001; 83605; 83735; 84132; 85025; 87040; 87081; 87426; 96361; 96365; 96366; 96375; C9113; G0378; J0696; J1885; J2405; J3480; J3490

== ENCOUNTER 2021-11-09 13:03 | Emergency (ER) | payer BC ==
[~2021-11-09] VITALS: Ht 149.9 cm; Wt 74.8 kg
[~2021-11-09 13:03] MED LIST changes: -CHOL20007 PO; -PROM25TA5 PO
[2021-11-09 13:05] VITALS: BP 141/89
[2021-11-09] MEDS ORDERED: IPRATROPIUM BROM 0.5 MG/2.5ML INH SOL NEB ONE (13:15)
[2021-11-09] MEDS ORDERED: ALBUTEROL SULF 2.5 MG/0.5ML(0.5%) NEB SOLN NEB ONE (13:15)
[2021-11-09] MEDS ORDERED: methylPREDNISolone SOD SUCC 125 MG/2 ML VL IM ONE (14:30)
[2021-11-09] MEDS ORDERED: cefTRIAXone SOD 1,000 MG VL IM ONE (14:30)
[2021-11-09] MEDS ORDERED: AZIT1POW12 PO (14:34)
[2021-11-09] MEDS ORDERED: PRED10TA PO (14:34)
[2021-11-09] MEDS ORDERED: BENZ100C97 PO (14:38)
[2021-11-09] MEDS ORDERED: ALBU108A5 IN (14:38)
== END 2021-11-09 15:00 | disposition home or self-care (01) ==
LOC: EEVIPCON 13:03 → ER 13:03
DX: J45.909 Unspecified asthma, uncomplicated (principal); I10 Essential (primary) hypertension; E78.5 Hyperlipidemia, unspecified; Z90.49 Acquired absence of other specified parts of digestive tract; Z98.51 Tubal ligation status; Z98.890 Other specified postprocedural states
CPT/HCPCS: 71046; 94640; 96372; 99284; J0696; J2930; J7644

== ENCOUNTER 2022-02-17 01:18 | Inpatient (IN) | payer BC ==
[~2022-02-17] VITALS: Ht 149.9 cm; Wt 79.1 kg
[~2022-02-17 01:18] MED LIST changes: +ALBU108A5 IN; +AZIT1POW12 PO; +BENZ100C97 PO; +PRED10TA PO
[2022-02-17] MEDS ORDERED: ONDANSETRON HCL 4 MG/2 ML VIAL IV ONE ×4 (02:30→09:00)
[2022-02-17] MEDS ORDERED: SODIUM CHLORIDE 0.9% 1,000 ML IV ONE ×2 (02:30→06:45)
[2022-02-17 02:54] LABS: Basophils # (auto) 0 10 ^3/uL (0-0.2); Basophils % (auto) 0.2 % (0.0-2.0); Eosinophils # (auto) 0 10 ^3/uL (0-0.8); Eosinophils % (auto) 0.3 % (0.0-7.0); Hematocrit 43.5 % (36.0-46.0); Lymphocytes # (auto) 2.5 10 ^3/uL (0.4-5.4); Lymphocytes % (auto) 17.6 % (10.0-50.0); Mean Corpuscular Hemoglobin 30.3 pg (28.0-32.0); Mean Corpuscular Hgb Conc. 34.5 g/dL (32.0-36.0); Mean Corpuscular Volume 87.9 fL (80.0-100.0); Monocytes # (auto) 0.8 10 ^3/uL (0-1.3); Monocytes % (auto) 5.4 % (0.0-12.0); Neutrophils # (auto) 10.8 10 ^3/uL (1.6-8.6); Neutrophils % (auto) 76.5 % (37.0-80.0); Nucleated Red Blood Cells % 0.7 %; Red Blood Cells 4.95 10^6/uL (4.0-5.20); Red Cell Distribution Width 13.4 % (11.8-14.3); White Blood Cell 14.2 10^3/uL (4.4-10.8)
[2022-02-17 03:10] LABS: Albumin 4.2 g/dL (3.4-5.0); Calcium 9.1 mg/dL (8.5-10.1)
[2022-02-17 03:12] LABS: BUN/Creatinine Ratio 33.3
[2022-02-17 03:15] LABS: Bilirubin, Total 0.6 mg/dL (0.2-1.0)
[2022-02-17 04:42] LABS: Urine Bacteria NONE SEEN /hpf (None Seen); Urine Blood Negative /uL (Negative); Urine Hyaline Cast FEW /lpf (0 - 2); Urine Mucus FEW (None Seen); Urine Specific Gravity 1.018 (1.001-1.035); Urine WBC 1 /hpf (0 - 5)
[2022-02-17] MEDS ORDERED: HYDROmorphone HCL 2 MG/ML VL IV ONE (05:30)
[2022-02-17] MEDS ORDERED: DIPHENOXYLATE W/ATROPINE 2.5 MG TAB PO ONE (06:45)
[2022-02-17] MEDS ORDERED: LABETALOL HCL 5 MG/ML 4ML SYRINGE IV ONE (06:45)
[2022-02-17] MEDS ORDERED: hydrALAZINE HCL 20 MG/ML VL IV ONE (08:45)
[2022-02-17] MEDS ORDERED: amLODIPine BESYLATE 5 MG TAB PO ONE (08:45)
[2022-02-17] MEDS ORDERED: NITROGLYCERIN 0.4 MG SL TAB SL PRN (10:00)
[2022-02-17] MEDS ORDERED: DEXTROSE (50%) 50ML SYRG IV PRN ×2 (10:00→21:15)
[2022-02-17] MEDS ORDERED: ENOXAPARIN SOD 40 MG/0.4 ML SYRINGE SC SCH (10:00)
[2022-02-17] MEDS: NIFEdipine ER 30 MG TAB PO SCH (11:05)
[2022-02-17] MEDS: LISINOPRIL 20 MG TAB PO SCH (11:05)
[2022-02-17] MEDS: CARVEDILOL 12.5 MG TAB PO SCH ×2 (11:05→21:58)
[2022-02-17] MEDS: SODIUM CHLORIDE 0.9% 1,000 ML IV SCH ×2 (11:06→17:13)
[2022-02-17] MEDS: InsuLIN REG 1unit/0.01ml Soln (100units/ml) SC SCH ×2 (11:18→17:00)
[2022-02-17] MEDS: ACCU-CHEK COMFORT CURVE STRIP VI SCH ×3 (11:18→21:58)
[2022-02-17] MEDS: PANTOPRAZOLE 40 MG/10 ML VIAL INJ IV SCH ×2 (12:57→21:57)
[2022-02-17] MEDS: HYDROmorphone HCL 2 MG/ML VL IV PRN ×3 (12:58→20:02)
[2022-02-17 13:19] LABS: INR 0.99 (0.9-1.15)
[2022-02-17] MEDS: SUCRALFATE 1 GM/10 ML ORAL SUSP PO SCH ×3 (13:55→21:57)
[2022-02-17 14:14] VITALS: BP 138/83
[2022-02-17] MEDS ORDERED: BUDE1AER4 INH (14:33)
[2022-02-17] MEDS: ONDANSETRON HCL 4 MG/2 ML VIAL IV PRN ×3 (14:37→22:50)
[2022-02-17 17:00] VITALS: BP 133/87
[2022-02-17 22:00] VITALS: BP 117/68
[2022-02-17] MEDS ORDERED: InsuLIN REG 1unit/0.01ml Soln (100units/ml) SC SCH ×2 (22:00)
[2022-02-18] MEDS: HYDROmorphone HCL 2 MG/ML VL IV PRN (03:24)
[2022-02-18] MEDS: ONDANSETRON HCL 4 MG/2 ML VIAL IV PRN ×2 (03:26→12:01)
[2022-02-18] MEDS: SODIUM CHLORIDE 0.9% 1,000 ML IV SCH ×2 (04:50→12:01)
[2022-02-18 05:00] VITALS: BP 101/57
[2022-02-18 05:31] LABS: Basophils # (auto) 0.1 10 ^3/uL (0-0.2); Basophils % (auto) 0.9 % (0.0-2.0); Eosinophils # (auto) 0 10 ^3/uL (0-0.8); Eosinophils % (auto) 0.1 % (0.0-7.0); Hematocrit 36.1 % (36.0-46.0); Hemoglobin 12.4 g/dL (12.2-16.2); Lymphocytes # (auto) 2.4 10 ^3/uL (0.4-5.4); Lymphocytes % (auto) 23.4 % (10.0-50.0); Mean Corpuscular Hemoglobin 30.3 pg (28.0-32.0); Mean Corpuscular Hgb Conc. 34.3 g/dL (32.0-36.0); Mean Corpuscular Volume 88.3 fL (80.0-100.0); Monocytes # (auto) 0.7 10 ^3/uL (0-1.3); Monocytes % (auto) 6.7 % (0.0-12.0); Neutrophils % (auto) 68.9 % (37.0-80.0); Nucleated Red Blood Cells % 0.1 %; Red Blood Cells 4.09 10^6/uL (4.0-5.20); Red Cell Distribution Width 13.4 % (11.8-14.3); White Blood Cell 10.1 10^3/uL (4.4-10.8)
[2022-02-18 05:46] LABS: Albumin 3.2 g/dL (3.4-5.0); BUN/Creatinine Ratio 41.7; Calcium 8.2 mg/dL (8.5-10.1); Potassium 3.3 mmol/L (3.5-5.1)
[2022-02-18 06:00] VITALS: BP 124/51
[2022-02-18 06:00] LABS: Bilirubin, Total 0.4 mg/dL (0.2-1.0); Total Protein 6.3 g/dL (6.4-8.2)
[2022-02-18] MEDS: SUCRALFATE 1 GM/10 ML ORAL SUSP PO SCH ×4 (06:39→22:14)
[2022-02-18] MEDS: ACCU-CHEK COMFORT CURVE STRIP VI SCH ×2 (06:39→13:31)
[2022-02-18] MEDS: InsuLIN REG 1unit/0.01ml Soln (100units/ml) SC SCH ×2 (06:39→13:40)
[2022-02-18] MEDS ORDERED: SODIUM CHLORIDE LOCK 10 ML ONE (08:36)
[2022-02-18] MEDS ORDERED: LIDOCAINE VISCOUS 2% 15ML UD ONE (08:36)
[2022-02-18] MEDS ORDERED: diphenhdrAMINE HCL 50 MG/1 ML VL ONE (08:37)
[2022-02-18 09:00] VITALS: BP 134/82
[2022-02-18] MEDS: MIDAZOLAM HCL 5 MG/ML-1ML VIAL ONE ×2 (09:18→09:21)
[2022-02-18] MEDS: fentaNYL CITRATE 100 MCG/2 ML VL ONE ×2 (09:18→09:21)
[2022-02-18] MEDS: PANTOPRAZOLE 40 MG/10 ML VIAL INJ IV SCH (11:59)
[2022-02-18 12:00] VITALS: BP 124/51
[2022-02-18] MEDS: LISINOPRIL 20 MG TAB PO SCH (12:00)
[2022-02-18] MEDS: CARVEDILOL 12.5 MG TAB PO SCH ×2 (12:00→22:14)
[2022-02-18] MEDS: NIFEdipine ER 30 MG TAB PO SCH (12:00)
[2022-02-18] MEDS ORDERED: POTASSIUM CHL 20 Meq TABLET PO ONE (12:45)
[2022-02-18] MEDS: METOCLOPRAMIDE HCL 5MG/ml INJ 2ml VIAL IV SCH ×2 (15:02→22:14)
[2022-02-18 16:00] VITALS: BP 109/61
[2022-02-18 18:50] LABS: Alcohol, Urine < 3.0 mg/dL (0-10); Barbiturate Scree,Urine NEGATIVE (NEGATIVE); Benzodiazephine Screen, Urine POSITIVE (NEGATIVE); Cannabinoid Screen, Urine POSITIVE (NEGATIVE); Cocaine Screen, Urine NEGATIVE (NEGATIVE); Opiate Scree,Urine NEGATIVE (NEGATIVE); Phencyclidine Screen, Urine NEGATIVE (NEGATIVE)
[2022-02-18 18:57] LABS: Amphetamine Screen, Urine NEGATIVE (NEGATIVE)
[2022-02-18 22:07] VITALS: BP 98/55
[2022-02-18] MEDS: PANTOPRAZOLE 40 MG TAB PO SCH (22:14)
[2022-02-19 04:10] VITALS: BP 138/68
[2022-02-19] MEDS: SUCRALFATE 1 GM/10 ML ORAL SUSP PO SCH ×4 (06:52→21:22)
[2022-02-19] MEDS: METOCLOPRAMIDE HCL 5MG/ml INJ 2ml VIAL IV SCH ×3 (06:52→21:22)
[2022-02-19 08:00] VITALS: BP 146/92
[2022-02-19] MEDS: NIFEdipine ER 30 MG TAB PO SCH (09:15)
[2022-02-19] MEDS: CARVEDILOL 12.5 MG TAB PO SCH ×2 (09:15→21:22)
[2022-02-19] MEDS: PANTOPRAZOLE 40 MG TAB PO SCH ×2 (09:16→21:22)
[2022-02-19] MEDS: LISINOPRIL 20 MG TAB PO SCH (09:16)
[2022-02-19 13:00] VITALS: BP 143/64
[2022-02-19] MEDS ORDERED: ACETAMINOPHEN 325 MG TAB PO PRN (16:30)
[2022-02-19 17:00] VITALS: BP 150/78
[2022-02-19 22:00] VITALS: BP 132/63
[2022-02-20] MEDS: ONDANSETRON HCL 4 MG/2 ML VIAL IV PRN ×2 (04:32→10:42)
[2022-02-20 05:00] VITALS: BP 132/95
[2022-02-20] MEDS: METOCLOPRAMIDE HCL 5MG/ml INJ 2ml VIAL IV SCH (05:42)
[2022-02-20] MEDS: SUCRALFATE 1 GM/10 ML ORAL SUSP PO SCH ×2 (06:17→10:43)
[2022-02-20 09:00] VITALS: BP 126/73
[2022-02-20] MEDS: NIFEdipine ER 30 MG TAB PO SCH (10:00)
[2022-02-20] MEDS: CARVEDILOL 12.5 MG TAB PO SCH (10:43)
[2022-02-20] MEDS: PANTOPRAZOLE 40 MG TAB PO SCH (10:43)
[2022-02-20] MEDS: LISINOPRIL 20 MG TAB PO SCH (10:44)
[2022-02-20 12:36] VITALS: BP 126/73
== END 2022-02-20 13:00 | disposition home or self-care (01) | DRG 392 ==
LOC: ER 01:21 → EEVIPCON 10:12 → TELE 10:12 → TELE-CENTR 13:54 → CENTRAL 02-20 08:32
PROVIDERS: ADMIT Internal Medicine; ATTEND Internal Medicine
PROC: 0DB68ZX Excision of Stomach, Via Natural or Artificial Opening Endoscopic, Diagnostic (ICD-10-PCS; principal; 2022-02-18 09:14)
DX: K29.70 Gastritis, unspecified, without bleeding (principal); R73.9 Hyperglycemia, unspecified; K29.90 Gastroduodenitis, unspecified, without bleeding; E78.5 Hyperlipidemia, unspecified; F12.90 Cannabis use, unspecified, uncomplicated; I10 Essential (primary) hypertension; I16.0 Hypertensive urgency; J44.9 Chronic obstructive pulmonary disease, unspecified; K44.9 Diaphragmatic hernia without obstruction or gangrene; K21.9 Gastro-esophageal reflux disease without esophagitis; K52.9 Noninfective gastroenteritis and colitis, unspecified; E27.8 Other specified disorders of adrenal gland; Z79.899 Other long term (current) drug therapy; Z80.9 Family history of malignant neoplasm, unspecified; Z82.49 Family history of ischemic heart disease and other diseases of the circulatory system; Z20.822 Contact with and (suspected) exposure to COVID-19
CPT/HCPCS: 36415; 43239; 74176; 80053; 80307; 81001; 82150; 82962; 83036; 83690; 85025; 85610; 86850; 86900; 86901; 96361; 96372; 96374; 96375; 96376; C9113; G0378; J1815; J2250; J2405; J3490

== ENCOUNTER 2022-06-21 19:05 | Inpatient (IN) | payer BC ==
[~2022-06-21] VITALS: Ht 149.9 cm; Wt 75.0 kg
[~2022-06-21 19:05] MED LIST changes: -AZIT1POW12 PO; -BENZ100C97 PO; +BUDE1AER4 INH; -CHLO25TA2 PO; -DICY20TA PO; -FURO1TAB33 PO; -LEVO500T31 PO; -PANT40T PO; -PRED10TA PO; -PROM25SU34 PO; -SUCR1SUS10 PO
[2022-06-21] MEDS ORDERED: SODIUM CHLORIDE 0.9% 1,000 ML IV ONE ×2 (19:30→23:15)
[2022-06-21] MEDS ORDERED: fentaNYL CITRATE 100 MCG/2 ML VL IV ONE (19:30)
[2022-06-21] MEDS ORDERED: ONDANSETRON HCL 4 MG/2 ML VIAL IV ONE ×3 (19:45→23:15)
[2022-06-21 21:05] LABS: Basophils # (auto) 0 10 ^3/uL (0-0.2); Basophils % (auto) 0.4 % (0.0-2.0); Eosinophils # (auto) 0 10 ^3/uL (0-0.8); Eosinophils % (auto) 0.1 % (0.0-7.0); Hematocrit 43.6 % (36.0-46.0); Hemoglobin 13.9 g/dL (12.2-16.2); Lymphocytes # (auto) 1.3 10 ^3/uL (0.4-5.4); Lymphocytes % (auto) 10.5 % (10.0-50.0); Mean Corpuscular Hemoglobin 28.5 pg (28.0-32.0); Mean Corpuscular Volume 89.2 fL (80.0-100.0); Monocytes # (auto) 0.3 10 ^3/uL (0-1.3); Nucleated Red Blood Cells % 0.2 %; Red Blood Cells 4.89 10^6/uL (4.0-5.20); White Blood Cell 12.6 10^3/uL (4.4-10.8)
[2022-06-21 21:24] LABS: Albumin 4.1 g/dL (3.4-5.0); Calcium 8.6 mg/dL (8.5-10.1); Potassium 3.6 mmol/L (3.5-5.1)
[2022-06-21 21:41] LABS: BUN/Creatinine Ratio 46.4; Bilirubin, Total 0.4 mg/dL (0.2-1.0); Total Protein 7.6 g/dL (6.4-8.2)
[2022-06-21] MEDS ORDERED: MORPHINE SULFATE 4 MG/ML SYR/VIAL IV ONE ×2 (21:45→23:15)
[2022-06-21] MEDS ORDERED: CIPR-173 PO (23:16)
[2022-06-21] MEDS ORDERED: ONDA-144 PO (23:17)
[2022-06-22] MEDS ORDERED: amLODIPine BESYLATE 5 MG TAB PO ONE (01:45)
[2022-06-22] MEDS ORDERED: METOCLOPRAMIDE HCL 5MG/ml INJ 2ml VIAL IV ONE (01:45)
[2022-06-22] MEDS ORDERED: SODIUM CHLORIDE 0.9% 500 ML IV ONE (01:45)
[2022-06-22] MEDS ORDERED: HYDROmorphone HCL 2 MG/ML VL/or syr IV ONE ×2 (03:45→11:45)
[2022-06-22] MEDS ORDERED: ACETAMINOPHEN 325 MG TAB PO PRN (05:00)
[2022-06-22] MEDS ORDERED: MORPHINE SULFATE INJ 2 MG/ml SYRG IV PRN (05:00)
[2022-06-22] MEDS ORDERED: LABETALOL HCL 5 MG/ML 4ML SYRINGE IV ONE (05:00)
[2022-06-22] MEDS ORDERED: HYDROcodone-ACET 5/325MG TAB PO PRN (05:00)
[2022-06-22] MEDS: cloNIDine HCL 0.1 MG TAB PO PRN ×2 (08:20→14:24)
[2022-06-22] MEDS: ONDANSETRON HCL 4 MG/2 ML VIAL IV PRN ×3 (08:20→22:34)
[2022-06-22] MEDS: LISINOPRIL 10 MG TAB PO SCH (11:18)
[2022-06-22] MEDS: PANTOPRAZOLE 40 MG TAB PO SCH (11:18)
[2022-06-22] MEDS: CARVEDILOL 12.5 MG TAB PO SCH ×2 (11:19→22:57)
[2022-06-22 14:00] VITALS: BP 169/85
[2022-06-22] MEDS ORDERED: SUCR1TAB PO (15:29)
[2022-06-22 15:35] VITALS: BP 126/66
[2022-06-22 17:00] VITALS: BP 115/73
[2022-06-22 22:00] VITALS: BP 101/50
[2022-06-23 05:00] VITALS: BP 98/47
[2022-06-23 08:58] LABS: Basophils # (auto) 0.1 10 ^3/uL (0-0.2); Basophils % (auto) 0.7 % (0.0-2.0); Eosinophils # (auto) 0.1 10 ^3/uL (0-0.8); Hematocrit 42.2 % (36.0-46.0); Hemoglobin 13.6 g/dL (12.2-16.2); Lymphocytes # (auto) 2.8 10 ^3/uL (0.4-5.4); Mean Corpuscular Hemoglobin 28.5 pg (28.0-32.0); Mean Corpuscular Hgb Conc. 32.1 g/dL (32.0-36.0); Mean Corpuscular Volume 88.8 fL (80.0-100.0); Monocytes # (auto) 0.6 10 ^3/uL (0-1.3); Monocytes % (auto) 7.1 % (0.0-12.0); Neutrophils % (auto) 58.2 % (37.0-80.0); Nucleated Red Blood Cells % 0.1 %; Red Blood Cells 4.76 10^6/uL (4.0-5.20); Red Cell Distribution Width 12.9 % (11.8-14.3); White Blood Cell 8.6 10^3/uL (4.4-10.8)
[2022-06-23 09:00] VITALS: BP 114/61
[2022-06-23] MEDS: ONDANSETRON HCL 4 MG/2 ML VIAL IV PRN ×2 (09:05→14:36)
[2022-06-23 09:30] LABS: BUN/Creatinine Ratio 27.3; Calcium 8.6 mg/dL (8.5-10.1); Potassium 3.3 mmol/L (3.5-5.1)
[2022-06-23] MEDS: LISINOPRIL 10 MG TAB PO SCH (10:00)
[2022-06-23] MEDS: CARVEDILOL 12.5 MG TAB PO SCH (10:00)
[2022-06-23] MEDS: PANTOPRAZOLE 40 MG TAB PO SCH (10:09)
[2022-06-23 13:00] VITALS: BP 137/47
[2022-06-23] MEDS ORDERED: PANT40TA2 PO (13:00)
[2022-06-23] MEDS ORDERED: ONDA-144 PO (13:00)
[2022-06-23 15:33] VITALS: BP 137/47
== END 2022-06-23 16:10 | disposition home or self-care (01) | DRG 392 ==
LOC: ER 19:05 → OVERFLOW 06-22 04:51 → CENTRAL 06-22 14:52
PROVIDERS: ADMIT Nurse Practitioner; ATTEND Internal Medicine Nephrology
DX: K44.9 Diaphragmatic hernia without obstruction or gangrene (principal); E86.0 Dehydration; K74.60 Unspecified cirrhosis of liver; D35.01 Benign neoplasm of right adrenal gland; E66.9 Obesity, unspecified; E78.5 Hyperlipidemia, unspecified; J44.9 Chronic obstructive pulmonary disease, unspecified; I10 Essential (primary) hypertension; K29.80 Duodenitis without bleeding; K29.70 Gastritis, unspecified, without bleeding; Z20.822 Contact with and (suspected) exposure to COVID-19; E11.65 Type 2 diabetes mellitus with hyperglycemia; I16.0 Hypertensive urgency; K42.9 Umbilical hernia without obstruction or gangrene; K43.9 Ventral hernia without obstruction or gangrene; Z80.1 Family history of malignant neoplasm of trachea, bronchus and lung; Z82.49 Family history of ischemic heart disease and other diseases of the circulatory system; Z83.3 Family history of diabetes mellitus; Z90.49 Acquired absence of other specified parts of digestive tract; Z68.33 Body mass index [BMI] 33.0-33.9, adult
CPT/HCPCS: 36415; 71045; 74176; 80048; 80053; 83605; 83690; 84484; 85025; 93005; 96361; 96374; 96375; 96376; G0378; J2405; J3490

== ENCOUNTER 2022-07-19 10:12 | Emergency (ER) | payer BC ==
[~2022-07-19 10:12] MED LIST changes: -ALBU108A5 IN; +ONDA-144 PO; +PANT40TA2 PO; +SUCR1TAB PO
== END 2022-07-19 11:20 | disposition left against medical advice (07) ==
LOC: ER 10:12
DX: R10.84 Generalized abdominal pain (principal); Z53.21 Procedure and treatment not carried out due to patient leaving prior to being seen by health care provider

== ENCOUNTER 2022-07-20 07:34 | Inpatient (IN) | payer BC ==
[~2022-07-20] VITALS: Ht 149.9 cm; Wt 71.9 kg
[2022-07-20 08:35] LABS: Basophils # (auto) 0 10 ^3/uL (0-0.2); Basophils % (auto) 0.3 % (0.0-2.0); Eosinophils # (auto) 0 10 ^3/uL (0-0.8); Hematocrit 47.7 % (36.0-46.0); Hemoglobin 15.8 g/dL (12.2-16.2); Lymphocytes # (auto) 1.6 10 ^3/uL (0.4-5.4); Lymphocytes % (auto) 9.6 % (10.0-50.0); Mean Corpuscular Hemoglobin 28.4 pg (28.0-32.0); Monocytes # (auto) 0.7 10 ^3/uL (0-1.3); Monocytes % (auto) 3.9 % (0.0-12.0); Neutrophils # (auto) 14.7 10 ^3/uL (1.6-8.6); Neutrophils % (auto) 86.2 % (37.0-80.0); Nucleated Red Blood Cells % 0.1 %; Red Blood Cells 5.55 10^6/uL (4.0-5.20); Red Cell Distribution Width 13.3 % (11.8-14.3)
[2022-07-20 08:49] LABS: Albumin 4.3 g/dL (3.4-5.0); Calcium 9.4 mg/dL (8.5-10.1); Potassium 3.6 mmol/L (3.5-5.1)
[2022-07-20 08:53] LABS: BUN/Creatinine Ratio 28.9; Bilirubin, Total 0.7 mg/dL (0.2-1.0)
[2022-07-20] MEDS ORDERED: MORPHINE SULFATE 4 MG/ML SYR/VIAL IV ONE (10:00)
[2022-07-20] MEDS ORDERED: ASPirin 81 mg TAB PO ONE ×2 (10:00→21:00)
[2022-07-20] MEDS ORDERED: METOCLOPRAMIDE HCL 5MG/ml INJ 2ml VIAL IV ONE (10:00)
[2022-07-20] MEDS ORDERED: NITROGLYCERIN 0.4 MG SL TAB SL ONE (10:00)
[2022-07-20 13:33] LABS: INR 0.97 (0.9-1.15)
[2022-07-20 14:43] LABS: Urine Bacteria FEW /hpf (None Seen); Urine Blood 1+ /uL (Negative); Urine Mucus FEW (None Seen); Urine Specific Gravity 1.021 (1.001-1.035); Urine WBC 7 /hpf (0 - 5)
[2022-07-20] MEDS ORDERED: MORPHINE SULFATE INJ 2 MG/ml SYRG IV ONE (16:30)
[2022-07-20] MEDS ORDERED: ONDANSETRON HCL 4 MG/2 ML VIAL IV ONE (16:30)
[2022-07-20] MEDS ORDERED: NITROGLYCERIN 0.4 MG SL TAB SL PRN (19:45)
[2022-07-20] MEDS ORDERED: DOCUSATE SOD 100 MG CAP PO PRN (19:45)
[2022-07-20] MEDS ORDERED: MORPHINE SULFATE INJ 2 MG/ml SYRG IV PRN (19:45)
[2022-07-20] MEDS ORDERED: ACETAMINOPHEN 325 MG TAB PO PRN (19:45)
[2022-07-20] MEDS: SODIUM CHLORIDE 0.9% 1,000 ML IV SCH (20:02)
[2022-07-20] MEDS: HYDROcodone-ACET 5/325MG TAB PO PRN (20:23)
[2022-07-20] MEDS: ONDANSETRON HCL 4 MG/2 ML VIAL IV PRN (20:27)
[2022-07-20] MEDS ORDERED: PROMETHAZINE HCL 25 MG/ML 1ML IM ONE (20:30)
[2022-07-20] MEDS ORDERED: ATORVASTATIN 20 MG TAB PO ONE (21:00)
[2022-07-20] MEDS ORDERED: ENOXAPARIN SOD 80 MG/0.8ML SYRINGE SC ONE (21:15)
[2022-07-20 22:40] VITALS: BP 158/101
[2022-07-20] MEDS: ATORVASTATIN 20 MG TAB PO SCH (23:07)
[2022-07-20] MEDS ORDERED: LABETALOL HCL 5 MG/ML 4ML SYRINGE IV ONE (23:45)
[2022-07-21] MEDS: ONDANSETRON HCL 4 MG/2 ML VIAL IV PRN ×3 (03:40→17:48)
[2022-07-21] MEDS: HYDROcodone-ACET 5/325MG TAB PO PRN ×2 (03:59→08:17)
[2022-07-21 05:15] LABS: Basophils # (auto) 0.1 10 ^3/uL (0-0.2); Basophils % (auto) 0.7 % (0.0-2.0); Eosinophils # (auto) 0 10 ^3/uL (0-0.8); Eosinophils % (auto) 0.1 % (0.0-7.0); Hematocrit 43.2 % (36.0-46.0); Hemoglobin 14.4 g/dL (12.2-16.2); Lymphocytes # (auto) 3.4 10 ^3/uL (0.4-5.4); Lymphocytes % (auto) 22.5 % (10.0-50.0); Mean Corpuscular Hemoglobin 28.5 pg (28.0-32.0); Mean Corpuscular Hgb Conc. 33.4 g/dL (32.0-36.0); Mean Corpuscular Volume 85.3 fL (80.0-100.0); Monocytes # (auto) 1.5 10 ^3/uL (0-1.3); Monocytes % (auto) 9.7 % (0.0-12.0); Neutrophils # (auto) 10.2 10 ^3/uL (1.6-8.6); Nucleated Red Blood Cells % 0.1 %; Red Blood Cells 5.07 10^6/uL (4.0-5.20); White Blood Cell 15.2 10^3/uL (4.4-10.8)
[2022-07-21 05:29] LABS: Potassium 3.3 mmol/L (3.5-5.1)
[2022-07-21 05:33] LABS: Albumin 3.7 g/dL (3.4-5.0); BUN/Creatinine Ratio 45.3; Calcium 8.6 mg/dL (8.5-10.1)
[2022-07-21 05:36] LABS: Bilirubin, Total 0.9 mg/dL (0.2-1.0); Total Protein 6.8 g/dL (6.4-8.2)
[2022-07-21 06:30] VITALS: BP 196/109
[2022-07-21] MEDS: cloNIDine HCL 0.1 MG TAB PO PRN (07:15)
[2022-07-21] MEDS ORDERED: hydrALAZINE HCL 20 MG/ML VL IV PRN (08:45)
[2022-07-21] MEDS ORDERED: hydrALAZINE HCL 20 MG/ML VL IV ONE (08:45)
[2022-07-21 09:27] VITALS: BP 156/93
[2022-07-21] MEDS: ASPirin 81 mg TAB PO SCH (09:34)
[2022-07-21] MEDS ORDERED: cefTRIAXone 1GM/50ML D5W 50 ML IV ONE ×2 (10:15→10:50)
[2022-07-21] MEDS ORDERED: metroNIDAZOLE 500MG/100ML 100 ML IV ONE ×2 (10:15→11:30)
[2022-07-21] MEDS: HYDROmorphone HCL 2 MG/ML VL/or syr IV PRN (11:13)
[2022-07-21] MEDS: SODIUM CHLORIDE 0.9% 1,000 ML IV SCH ×2 (12:28→20:16)
[2022-07-21] MEDS: metroNIDAZOLE 500MG/100ML 100 ML IV SCH (20:08)
[2022-07-21] MEDS: ATORVASTATIN 20 MG TAB PO SCH (20:09)
[2022-07-21 22:00] VITALS: BP 117/68
[2022-07-22] MEDS: metroNIDAZOLE 500MG/100ML 100 ML IV SCH ×3 (04:29→20:24)
[2022-07-22] MEDS: ONDANSETRON HCL 4 MG/2 ML VIAL IV PRN ×2 (04:30→16:34)
[2022-07-22] MEDS: HYDROcodone-ACET 5/325MG TAB PO PRN (04:40)
[2022-07-22] MEDS: SODIUM CHLORIDE 0.9% 1,000 ML IV SCH ×2 (04:59→20:24)
[2022-07-22 05:00] VITALS: BP 144/87
[2022-07-22] MEDS: HYDROmorphone HCL 2 MG/ML VL/or syr IV PRN ×2 (05:45→09:57)
[2022-07-22 08:00] VITALS: BP 198/116
[2022-07-22] MEDS: cloNIDine HCL 0.1 MG TAB PO PRN (08:29)
[2022-07-22 09:00] VITALS: BP 198/116
[2022-07-22] MEDS: cefTRIAXone 1GM/50ML D5W 50 ML IV SCH (09:53)
[2022-07-22] MEDS: ASPirin 81 mg TAB PO SCH (09:54)
[2022-07-22] MEDS ORDERED: cloNIDine HCL 0.1 MG TAB PO ONE (10:30)
[2022-07-22] MEDS ORDERED: amLODIPine BESYLATE 5 MG TAB PO ONE (10:30)
[2022-07-22 12:56] VITALS: BP 107/69
[2022-07-22 16:54] VITALS: BP 101/51
[2022-07-22] MEDS: ATORVASTATIN 20 MG TAB PO SCH (21:53)
[2022-07-22 22:00] VITALS: BP 111/76
[2022-07-23] VITALS (7 sets, daily range): BP systolic 102–135; BP diastolic 48–74
[2022-07-23] MEDS: ONDANSETRON HCL 4 MG/2 ML VIAL IV PRN ×4 (04:17→18:42)
[2022-07-23] MEDS: metroNIDAZOLE 500MG/100ML 100 ML IV SCH ×3 (04:17→20:07)
[2022-07-23 05:37] LABS: Basophils # (auto) 0 10 ^3/uL (0-0.2); Basophils % (auto) 0.2 % (0.0-2.0); Eosinophils # (auto) 0 10 ^3/uL (0-0.8); Eosinophils % (auto) 0.5 % (0.0-7.0); Hematocrit 36.7 % (36.0-46.0); Hemoglobin 12.3 g/dL (12.2-16.2); Lymphocytes # (auto) 2.6 10 ^3/uL (0.4-5.4); Lymphocytes % (auto) 29.3 % (10.0-50.0); Mean Corpuscular Hemoglobin 28.9 pg (28.0-32.0); Mean Corpuscular Hgb Conc. 33.5 g/dL (32.0-36.0); Mean Corpuscular Volume 86.3 fL (80.0-100.0); Monocytes # (auto) 0.6 10 ^3/uL (0-1.3); Monocytes % (auto) 7.3 % (0.0-12.0); Neutrophils # (auto) 5.5 10 ^3/uL (1.6-8.6); Neutrophils % (auto) 62.7 % (37.0-80.0); Red Blood Cells 4.25 10^6/uL (4.0-5.20); Red Cell Distribution Width 12.9 % (11.8-14.3); White Blood Cell 8.8 10^3/uL (4.4-10.8)
[2022-07-23 06:02] LABS: BUN/Creatinine Ratio 37.2; Calcium 7.7 mg/dL (8.5-10.1)
[2022-07-23 06:32] LABS: Potassium 2.8 mmol/L (3.5-5.1)
[2022-07-23] MEDS: cefTRIAXone 1GM/50ML D5W 50 ML IV SCH (08:32)
[2022-07-23] MEDS ORDERED: POTASSIUM EFFERVESENT TAB 25 MEQ PO ONE (08:45)
[2022-07-23] MEDS: ASPirin 81 mg TAB PO SCH (09:26)
[2022-07-23] MEDS ORDERED: amLODIPine BESYLATE 5 MG TAB PO SCH (10:00)
[2022-07-23] MEDS ORDERED: LISINOPRIL 20 MG TAB PO SCH (10:00)
[2022-07-23] MEDS ORDERED: POTASSIUM CHL 20 Meq TABLET PO ONE (11:00)
[2022-07-23] MEDS: HYDROmorphone HCL 2 MG/ML VL/or syr IV PRN (20:07)
[2022-07-23] MEDS: ATORVASTATIN 20 MG TAB PO SCH (21:48)
[2022-07-24] MEDS: metroNIDAZOLE 500MG/100ML 100 ML IV SCH ×2 (04:27→12:22)
[2022-07-24] MEDS: ONDANSETRON HCL 4 MG/2 ML VIAL IV PRN ×3 (04:27→20:19)
[2022-07-24 05:00] VITALS: BP 127/78
[2022-07-24 08:00] VITALS: BP 131/72
[2022-07-24] MEDS: cefTRIAXone 1GM/50ML D5W 50 ML IV SCH (08:50)
[2022-07-24 09:00] VITALS: BP 131/72
[2022-07-24] MEDS: SPIRONOLACTONE 25 MG TAB PO SCH (11:32)
[2022-07-24] MEDS: ASPirin 81 mg TAB PO SCH (11:32)
[2022-07-24 13:00] VITALS: BP 133/73
[2022-07-24 16:48] VITALS: BP 125/71
[2022-07-24] MEDS: ATORVASTATIN 20 MG TAB PO SCH (20:18)
[2022-07-24 22:00] VITALS: BP 126/53
[2022-07-25 05:00] VITALS: BP 132/72
[2022-07-25 08:00] VITALS: BP 117/66
[2022-07-25] MEDS: cefTRIAXone 1GM/50ML D5W 50 ML IV SCH (09:10)
[2022-07-25] MEDS: SPIRONOLACTONE 25 MG TAB PO SCH (09:11)
[2022-07-25] MEDS: ONDANSETRON HCL 4 MG/2 ML VIAL IV PRN ×2 (09:11→23:00)
[2022-07-25] MEDS: ASPirin 81 mg TAB PO SCH (09:11)
[2022-07-25 20:00] VITALS: BP 120/59
[2022-07-25 22:00] VITALS: BP 120/59
[2022-07-25] MEDS: ATORVASTATIN 20 MG TAB PO SCH (22:29)
[2022-07-26 05:00] VITALS: BP 128/81
[2022-07-26] MEDS: ONDANSETRON HCL 4 MG/2 ML VIAL IV PRN ×2 (08:11→16:00)
[2022-07-26 09:00] VITALS: BP 115/63
[2022-07-26] MEDS: SPIRONOLACTONE 25 MG TAB PO SCH (10:04)
[2022-07-26] MEDS: cefTRIAXone 1GM/50ML D5W 50 ML IV SCH (10:04)
[2022-07-26] MEDS: ASPirin 81 mg TAB PO SCH (10:04)
[2022-07-26 13:00] VITALS: BP 116/62
[2022-07-26] MEDS ORDERED: SPIR50TA5 PO (16:18)
[2022-07-26] MEDS ORDERED: HYDR-4902 PO (16:20)
[2022-07-26 16:47] VITALS: BP 113/65
== END 2022-07-26 18:30 | disposition home or self-care (01) | DRG 394 ==
LOC: ER 07:34 → TELE 19:35 → TELE-WESTW 22:24 → WEST WING 07-25 00:04
PROVIDERS: ADMIT Nurse Practitioner Family; ATTEND Internal Medicine Nephrology
DX: K42.9 Umbilical hernia without obstruction or gangrene (principal); I16.1 Hypertensive emergency; I51.81 Takotsubo syndrome; I31.3 Pericardial effusion (noninflammatory); K43.9 Ventral hernia without obstruction or gangrene; D72.829 Elevated white blood cell count, unspecified; E78.5 Hyperlipidemia, unspecified; E87.6 Hypokalemia; I10 Essential (primary) hypertension; R73.9 Hyperglycemia, unspecified; F41.9 Anxiety disorder, unspecified; Z20.822 Contact with and (suspected) exposure to COVID-19; K76.0 Fatty (change of) liver, not elsewhere classified; F12.90 Cannabis use, unspecified, uncomplicated; K44.9 Diaphragmatic hernia without obstruction or gangrene; J44.9 Chronic obstructive pulmonary disease, unspecified; K21.9 Gastro-esophageal reflux disease without esophagitis; Z79.899 Other long term (current) drug therapy; Z82.49 Family history of ischemic heart disease and other diseases of the circulatory system; Z83.3 Family history of diabetes mellitus; Z87.11 Personal history of peptic ulcer disease; Z90.49 Acquired absence of other specified parts of digestive tract
CPT/HCPCS: 36415; 71046; 74176; 80048; 80053; 81001; 82088; 83690; 84132; 84244; 84484; 85025; 85610; 93005; 93306; 96361; 96374; 96375; G0378; J0696; J2405; J3490

== ENCOUNTER → 2022-07-28 | Outpatient (CLI) | payer BC ==
[~2022-07-28] MED LIST changes: +HYDR-4902 PO; -LISI-716 PO; -ONDA-144 PO; -PANT40TA2 PO; +SPIR50TA5 PO
[2022-07-28 14:08] LABS: Potassium 3.9 mmol/L (3.5-5.1)
[2022-07-28 14:13] LABS: Alcohol, Urine < 3.0 mg/dL (0-10); Amphetamine Screen, Urine NEGATIVE (NEGATIVE); BUN/Creatinine Ratio 29.2; Barbiturate Scree,Urine NEGATIVE (NEGATIVE); Benzodiazephine Screen, Urine NEGATIVE (NEGATIVE); Cannabinoid Screen, Urine POSITIVE (NEGATIVE); Cocaine Screen, Urine NEGATIVE (NEGATIVE)
[2022-07-28 14:22] LABS: Opiate Scree,Urine NEGATIVE (NEGATIVE); Phencyclidine Screen, Urine NEGATIVE (NEGATIVE)
== END | disposition home or self-care (01) ==
LOC: LAB 12:28
PROVIDERS: ATTEND Internal Medicine
DX: E87.6 Hypokalemia (principal); K43.9 Ventral hernia without obstruction or gangrene
CPT/HCPCS: 36415; 80048; 80307; 84484; 85379

== ENCOUNTER 2023-08-01 09:42 | Emergency (ER) | payer BC ==
[~2023-08-01] VITALS: Ht 149.9 cm; Wt 75.0 kg
[2023-08-01 10:11] VITALS: PULSE 81; RESP 19; O2SAT 95; O2SAT 99
[2023-08-01] MEDS ORDERED: ONDANSETRON HCL 4 MG/2 ML VIAL IV ONE ×2 (10:15→14:00)
[2023-08-01] MEDS ORDERED: ONDANSETRON HCL 4 MG/2 ML VIAL ONE (10:17)
[2023-08-01] MEDS ORDERED: DICYCLOMINE HCL (10MG/ML) 2 ML AMPULE IM ONE (10:30)
[2023-08-01 10:39] LABS: Basophils # (auto) 0 10 ^3/uL (0-0.2); Basophils % (auto) 0.3 % (0.0-2.0); Eosinophils # (auto) 0 10 ^3/uL (0-0.8); Eosinophils % (auto) 0.2 % (0.0-7.0); Hematocrit 44.6 % (36.0-46.0); Hemoglobin 15.2 g/dL (12.2-16.2); Lymphocytes # (auto) 1.6 10 ^3/uL (0.4-5.4); Lymphocytes % (auto) 10.8 % (10.0-50.0); Mean Corpuscular Hgb Conc. 34.1 g/dL (32.0-36.0); Monocytes # (auto) 0.4 10 ^3/uL (0-1.3); Monocytes % (auto) 2.4 % (0.0-12.0); Neutrophils # (auto) 12.8 10 ^3/uL (1.6-8.6); Neutrophils % (auto) 86.3 % (37.0-80.0); Red Blood Cells 5.07 10^6/uL (4.0-5.20); Red Cell Distribution Width 13.5 % (11.8-14.3); White Blood Cell 14.8 10^3/uL (4.4-10.8)
[2023-08-01] MEDS ORDERED: MAGNESIUM SULFATE 1GM/100ML 100 ML IV SCH (10:45)
[2023-08-01] MEDS ORDERED: HYDROmorphone HCL 2 MG/ML VL/or syr IV ONE ×3 (10:45→14:00)
[2023-08-01] MEDS ORDERED: ALBUTEROL SULF 2.5 MG/0.5ML(0.5%) NEB SOLN NEB ONE (10:45)
[2023-08-01 11:11] LABS: Alanine Aminotransferase 26 U/L (7-40); Albumin 4.6 g/dL (3.2-4.8); Alkaline Phosphatase 116 U/L (46-116); Aspartate Aminotransferase 20 U/L (13-40); Blood Urea Nitrogen 17 mg/dL (9-23); Calcium 9.5 mg/dL (8.5-10.1); Carbon Dioxide 25 mmol/L (20-30); Glucose 151 mg/dL (74-106)
[2023-08-01 11:12] LABS: Bilirubin, Total 0.7 mg/dL (0.2-1.0); Total Protein 7.5 g/dL (5.7-8.2)
[2023-08-01 11:28] LABS: Anion Gap 8 (5-15); Chloride 106 mmol/L (98-107); Potassium 3.8 mmol/L (3.5-5.1); Sodium 139 mmol/L (136-145)
[2023-08-01] MEDS: diphenhdrAMINE HCL 50 MG/1 ML VL IV ONE ×3 (15:41→18:49)
[2023-08-01] MEDS: METOCLOPRAMIDE HCL 5MG/ml INJ 2ml VIAL IV ONE ×3 (15:43→18:49)
[2023-08-01] MEDS: KETOROLAC TROMETH 30 MG/ML 1ML VIAL IV ONE ×2 (16:07→18:49)
[2023-08-01 17:11] LABS: Urine Bacteria NONE SEEN /hpf (None Seen); Urine Blood Negative /uL (Negative); Urine Clarity Clear (Clear); Urine Color Colorless (Yellow); Urine Mucus FEW (None Seen); Urine Protein, UAD 1+ (Negative); Urine Specific Gravity 1.038 (1.001-1.035); Urine Urobilinogen Normal (Negative); Urine WBC 1 /hpf (0 - 5)
[2023-08-01 19:43] VITALS: BP 170/64; PULSE 102; RESP 18; O2SAT 92
[2023-08-01] MEDS ORDERED: chlorproMAZINE HCL 25 MG/1 ML AMP IM ONE (20:00)
== END 2023-08-02 02:11 | disposition home or self-care (01) ==
LOC: EEVIPCON 09:42 → ER 09:42
DX: R10.9 Unspecified abdominal pain (principal); R11.2 Nausea with vomiting, unspecified; I10 Essential (primary) hypertension; E78.5 Hyperlipidemia, unspecified; Z90.49 Acquired absence of other specified parts of digestive tract; Z98.51 Tubal ligation status
CPT/HCPCS: 36415; 74176; 80053; 81001; 85025; 93005; 96372; 96374; 96375; 96376; 99285; J0500; J1170; J1200; J1885; J2405; J2765; J3230

== ENCOUNTER 2023-08-06 13:16 | Inpatient (IN) | payer BC ==
[~2023-08-06] VITALS: Ht 152.4 cm; Wt 76.8 kg
[2023-08-06 14:21] LABS: Basophils # (auto) 0 10 ^3/uL (0-0.2); Basophils % (auto) 0.3 % (0.0-2.0); Eosinophils # (auto) 0 10 ^3/uL (0-0.8); Eosinophils % (auto) 0.1 % (0.0-7.0); Hematocrit 43.8 % (36.0-46.0); Hemoglobin 15.1 g/dL (12.2-16.2); Lymphocytes # (auto) 2.4 10 ^3/uL (0.4-5.4); Mean Corpuscular Hemoglobin 29.9 pg (28.0-32.0); Mean Corpuscular Hgb Conc. 34.5 g/dL (32.0-36.0); Mean Corpuscular Volume 86.7 fL (80.0-100.0); Monocytes # (auto) 0.8 10 ^3/uL (0-1.3); Monocytes % (auto) 4.9 % (0.0-12.0); Neutrophils # (auto) 12.6 10 ^3/uL (1.6-8.6); Neutrophils % (auto) 79.7 % (37.0-80.0); Nucleated Red Blood Cells % 0.1 %; Red Blood Cells 5.05 10^6/uL (4.0-5.20); Red Cell Distribution Width 12.9 % (11.8-14.3); White Blood Cell 15.7 10^3/uL (4.4-10.8)
[2023-08-06 14:31] LABS: Urine Bacteria NONE SEEN /hpf (None Seen); Urine Blood Negative /uL (Negative); Urine Clarity HAZY (Clear); Urine Color Yellow (Yellow); Urine Mucus FEW (None Seen); Urine Protein, UAD 1+ (Negative); Urine Specific Gravity 1.031 (1.001-1.035); Urine WBC 6 /hpf (0 - 5)
[2023-08-06 14:41] LABS: Alanine Aminotransferase 25 U/L (7-40); Albumin 4.3 g/dL (3.2-4.8); Alkaline Phosphatase 102 U/L (46-116); Anion Gap 5 (5-15); Aspartate Aminotransferase 11 U/L (13-40); BUN/Creatinine Ratio 37.1 (10.0-20.0); Blood Urea Nitrogen 26 mg/dL (9-23); Calcium 9.4 mg/dL (8.7-10.4); Carbon Dioxide 28 mmol/L (20-30); Chloride 101 mmol/L (98-107); Glucose 105 mg/dL (74-106); Lipase 45 U/L (12-53); Potassium 3.6 mmol/L (3.5-5.1)
[2023-08-06 14:42] LABS: Bilirubin, Total 0.8 mg/dL (0.2-1.0); Total Protein 6.8 g/dL (5.7-8.2)
[2023-08-06] MEDS ORDERED: HYDROmorphone HCL 2 MG/ML VL/or syr IM ONE (14:45)
[2023-08-06] MEDS ORDERED: ONDANSETRON ODT 4 MG TAB PO ONE (14:45)
[2023-08-06 14:48] LABS: Sodium 134 mmol/L (136-145)
[2023-08-06 15:41] VITALS: PULSE 87; RESP 16; O2SAT 99
[2023-08-06] MEDS ORDERED: cefTRIAXone 1GM/50ML D5W 50 ML IV ONE (16:15)
[2023-08-06] MEDS ORDERED: ALBUTEROL SULF 2.5 MG/0.5ML(0.5%) NEB SOLN NEB PRN (17:00)
[2023-08-06] MEDS ORDERED: methylPREDNISolone SOD SUCC 40 MG/ML VL IV ONE (17:30)
[2023-08-06] MEDS ORDERED: PANTOPRAZOLE 40 MG/10 ML VIAL INJ IV ONE (17:30)
[2023-08-06] MEDS ORDERED: KETOROLAC TROMETH 30 MG/ML 1ML VIAL IV ONE (17:30)
[2023-08-06] MEDS: metroNIDAZOLE 500MG/100ML 100 ML IV SCH (17:45)
[2023-08-06] MEDS: SODIUM CHLORIDE 0.9% 1,000 ML IV SCH (17:46)
[2023-08-06 18:00] VITALS: PULSE 78; RESP 18; O2SAT 98
[2023-08-06] MEDS: ALBUTEROL SULF 2.5 MG/0.5ML(0.5%) NEB SOLN NEB SCH ×2 (18:00→22:00)
[2023-08-06] MEDS: IPRATROPIUM BROM 0.5 MG/2.5ML INH SOL NEB SCH ×2 (18:00→22:00)
[2023-08-06 18:10] VITALS: BP 117/67; PULSE 78; PULSE 79; RESP 18; TEMP 98.2; O2SAT 98; O2SAT 99
[2023-08-06 18:41] LABS: Triglycerides 131 mg/dL (< 150)
[2023-08-06 18:42] LABS: LDL Cholesterol 91 mg/dL (< 100)
[2023-08-06 18:43] LABS: Cholesterol 138 mg/dL (< 200); HDL Cholesterol 32 mg/dL (40-59)
[2023-08-06] MEDS: ONDANSETRON HCL 4 MG/2 ML VIAL IV PRN (18:56)
[2023-08-06] MEDS: MORPHINE SULFATE INJ 2 MG/ml SYRG IV PRN (18:59)
[2023-08-06 19:05] LABS: Lipase 51 U/L (12-53)
[2023-08-06 19:25] VITALS: PULSE 77; RESP 14; O2SAT 95
[2023-08-06 22:00] VITALS: BP 120/68; PULSE 76; RESP 14; TEMP 98.1; O2SAT 92
[2023-08-06] MEDS: SUCRALFATE 1 GM TAB PO SCH (22:11)
[2023-08-06] MEDS: methylPREDNISolone SOD SUCC 40 MG/ML VL IV SCH (22:12)
[2023-08-06 22:33] VITALS: O2SAT 9; O2SAT 93
[2023-08-07] VITALS (12 sets, daily range): BP systolic 122–148; BP diastolic 54–69; PULSE 73–92; RESP 14–20; TEMP 36.6; O2SAT 0–99
[2023-08-07] MEDS: metroNIDAZOLE 500MG/100ML 100 ML IV SCH ×3 (00:53→17:06)
[2023-08-07] MEDS: IPRATROPIUM BROM 0.5 MG/2.5ML INH SOL NEB SCH ×7 (02:00→22:00)
[2023-08-07] MEDS: ALBUTEROL SULF 2.5 MG/0.5ML(0.5%) NEB SOLN NEB SCH ×7 (02:00→22:00)
[2023-08-07] MEDS: SODIUM CHLORIDE 0.9% 1,000 ML IV SCH ×3 (03:00→20:45)
[2023-08-07] MEDS: SUCRALFATE 1 GM TAB PO SCH ×3 (05:53→21:33)
[2023-08-07] MEDS: ONDANSETRON HCL 4 MG/2 ML VIAL IV PRN ×2 (06:00→21:54)
[2023-08-07] MEDS: MORPHINE SULFATE INJ 2 MG/ml SYRG IV PRN (06:02)
[2023-08-07 06:53] LABS: Basophils # (auto) 0 10 ^3/uL (0-0.2); Basophils % (auto) 0.2 % (0.0-2.0); Eosinophils # (auto) 0 10 ^3/uL (0-0.8); Hematocrit 39.2 % (36.0-46.0); Hemoglobin 13.4 g/dL (12.2-16.2); Lymphocytes % (auto) 12.1 % (10.0-50.0); Mean Corpuscular Hemoglobin 29.9 pg (28.0-32.0); Mean Corpuscular Hgb Conc. 34.2 g/dL (32.0-36.0); Mean Corpuscular Volume 87.3 fL (80.0-100.0); Monocytes # (auto) 0.1 10 ^3/uL (0-1.3); Monocytes % (auto) 1.6 % (0.0-12.0); Neutrophils # (auto) 6.8 10 ^3/uL (1.6-8.6); Neutrophils % (auto) 86.1 % (37.0-80.0); Red Blood Cells 4.49 10^6/uL (4.0-5.20); Red Cell Distribution Width 12.9 % (11.8-14.3); White Blood Cell 7.9 10^3/uL (4.4-10.8)
[2023-08-07 07:00] LABS: Alanine Aminotransferase 22 U/L (7-40); Albumin 3.8 g/dL (3.2-4.8); Alkaline Phosphatase 88 U/L (46-116); Anion Gap 4 (5-15); Aspartate Aminotransferase 13 U/L (13-40); BUN/Creatinine Ratio 29.3 (10.0-20.0); Bilirubin, Total 0.5 mg/dL (0.2-1.0); Blood Urea Nitrogen 17 mg/dL (9-23); Calcium 8.7 mg/dL (8.7-10.4); Carbon Dioxide 28 mmol/L (20-30); Chloride 103 mmol/L (98-107); Glucose 133 mg/dL (74-106); Potassium 3.4 mmol/L (3.5-5.1); Sodium 135 mmol/L (136-145); Total Protein 6.2 g/dL (5.7-8.2)
[2023-08-07] MEDS: PANTOPRAZOLE 40 MG/10 ML VIAL INJ IV SCH (09:32)
[2023-08-07] MEDS: methylPREDNISolone SOD SUCC 40 MG/ML VL IV SCH ×2 (09:32→21:33)
[2023-08-07] MEDS: SPIRONOLACTONE 25 MG TAB PO SCH (09:33)
[2023-08-07] MEDS: ENOXAPARIN SOD 40 MG/0.4 ML SYRINGE SC SCH (09:33)
[2023-08-07] MEDS: cefTRIAXone 1GM/50ML D5W 50 ML IV SCH (09:41)
[2023-08-07] MEDS: ACETAMINOPHEN 325 MG TAB PO PRN (21:33)
[2023-08-08] MEDS: ALBUTEROL SULF 2.5 MG/0.5ML(0.5%) NEB SOLN NEB SCH ×3 (02:00→10:00)
[2023-08-08] MEDS: IPRATROPIUM BROM 0.5 MG/2.5ML INH SOL NEB SCH ×3 (02:00→10:00)
[2023-08-08] MEDS: metroNIDAZOLE 500MG/100ML 100 ML IV SCH ×2 (02:35→10:02)
[2023-08-08 05:00] VITALS: BP 137/52; PULSE 75; RESP 17; TEMP 97.7; O2SAT 96
[2023-08-08 05:57] LABS: Chloride 108 mmol/L (98-107); Potassium 3.7 mmol/L (3.5-5.1); Sodium 139 mmol/L (136-145)
[2023-08-08 05:58] LABS: Anion Gap 6 (5-15); Carbon Dioxide 25 mmol/L (20-30)
[2023-08-08 05:59] LABS: Basophils # (auto) 0 10 ^3/uL (0-0.2); Calcium 8.6 mg/dL (8.5-10.1); Eosinophils # (auto) 0 10 ^3/uL (0-0.8); Hematocrit 39.8 % (36.0-46.0); Hemoglobin 13.2 g/dL (12.2-16.2); Lymphocytes # (auto) 1.2 10 ^3/uL (0.4-5.4); Lymphocytes % (auto) 9.2 % (10.0-50.0); Mean Corpuscular Hemoglobin 29.5 pg (28.0-32.0); Mean Corpuscular Hgb Conc. 33.2 g/dL (32.0-36.0); Mean Corpuscular Volume 88.7 fL (80.0-100.0); Monocytes # (auto) 0.3 10 ^3/uL (0-1.3); Monocytes % (auto) 1.9 % (0.0-12.0); Neutrophils # (auto) 11.8 10 ^3/uL (1.6-8.6); Neutrophils % (auto) 88.9 % (37.0-80.0); Red Blood Cells 4.49 10^6/uL (4.0-5.20); Red Cell Distribution Width 13.1 % (11.8-14.3); White Blood Cell 13.2 10^3/uL (4.4-10.8)
[2023-08-08 06:03] LABS: Glucose 135 mg/dL (74-106)
[2023-08-08 06:04] LABS: BUN/Creatinine Ratio 16.4 (10.0-20.0); Blood Urea Nitrogen 9 mg/dL (9-23)
[2023-08-08] MEDS: SUCRALFATE 1 GM TAB PO SCH (06:59)
[2023-08-08 08:30] VITALS: PULSE 77; RESP 14; O2SAT 0
[2023-08-08 08:42] VITALS: BP 169/85; PULSE 79; RESP 15; TEMP 97.8; O2SAT 91
[2023-08-08 10:00] VITALS: O2SAT 95
[2023-08-08] MEDS: PANTOPRAZOLE 40 MG/10 ML VIAL INJ IV SCH (10:02)
[2023-08-08] MEDS: methylPREDNISolone SOD SUCC 40 MG/ML VL IV SCH (10:02)
[2023-08-08] MEDS: ENOXAPARIN SOD 40 MG/0.4 ML SYRINGE SC SCH (10:02)
[2023-08-08] MEDS: SPIRONOLACTONE 25 MG TAB PO SCH (10:03)
[2023-08-08] MEDS: cefTRIAXone 1GM/50ML D5W 50 ML IV SCH (10:03)
[2023-08-08] MEDS: ACETAMINOPHEN 325 MG TAB PO PRN (10:07)
[2023-08-08] MEDS ORDERED: PRED20TA2 PO (10:20)
[2023-08-08] MEDS ORDERED: METR-344 PO (10:20)
[2023-08-08] MEDS: SODIUM CHLORIDE 0.9% 1,000 ML IV SCH (10:23)
[2023-08-08 10:29] VITALS: BP 152/99; PULSE 77; RESP 14
[2023-08-08 13:00] VITALS: BP 162/81; PULSE 76; RESP 17; TEMP 97.9; O2SAT 96
== END 2023-08-08 13:00 | disposition home or self-care (01) | DRG 392 ==
LOC: ER 13:16 → EEVIPCON 13:16 → OVERFLOW 16:58 → EAST 21:21
PROVIDERS: ADMIT Nurse Practitioner Family; ATTEND Internal Medicine Pulmonary Disease
DX: K52.9 Noninfective gastroenteritis and colitis, unspecified (principal); N39.0 Urinary tract infection, site not specified; E87.1 Hypo-osmolality and hyponatremia; J45.901 Unspecified asthma with (acute) exacerbation; E27.8 Other specified disorders of adrenal gland; E66.01 Morbid (severe) obesity due to excess calories; I10 Essential (primary) hypertension; L30.9 Dermatitis, unspecified; K42.9 Umbilical hernia without obstruction or gangrene; K21.9 Gastro-esophageal reflux disease without esophagitis; D72.829 Elevated white blood cell count, unspecified; Z68.33 Body mass index [BMI] 33.0-33.9, adult; Z82.49 Family history of ischemic heart disease and other diseases of the circulatory system; Z83.3 Family history of diabetes mellitus; Z90.49 Acquired absence of other specified parts of digestive tract; Z71.3 Dietary counseling and surveillance
CPT/HCPCS: 36415; 74176; 80048; 80053; 80061; 81001; 83690; 84443; 84484; 85025; 93005; 94640; C9113; G0378; J0696; J2405; J3490; Q0162

== ENCOUNTER 2023-09-27 05:50 | Inpatient (IN) | payer BC ==
[~2023-09-27] VITALS: Ht 149.9 cm; Wt 72.9 kg
[~2023-09-27 05:50] MED LIST changes: +METR-344 PO; +PRED20TA2 PO
[2023-09-27] MEDS ORDERED: MORPHINE SULFATE 4 MG/ML SYR/VIAL IV ONE (06:30)
[2023-09-27] MEDS ORDERED: SODIUM CHLORIDE 0.9% 1,000 ML IV ONE ×2 (06:30)
[2023-09-27] MEDS ORDERED: ONDANSETRON HCL 4 MG/2 ML VIAL IV ONE (06:45)
[2023-09-27 06:50] LABS: Basophils # (auto) 0.1 10 ^3/uL (0-0.2); Basophils % (auto) 0.6 % (0.0-2.0); Eosinophils # (auto) 0 10 ^3/uL (0-0.8); Lymphocytes # (auto) 1.5 10 ^3/uL (0.4-5.4); Lymphocytes % (auto) 8.6 % (10.0-50.0); Mean Corpuscular Hemoglobin 29.6 pg (28.0-32.0); Mean Corpuscular Volume 86.9 fL (80.0-100.0); Monocytes # (auto) 0.6 10 ^3/uL (0-1.3); Monocytes % (auto) 3.1 % (0.0-12.0); Neutrophils # (auto) 15.7 10 ^3/uL (1.6-8.6); Neutrophils % (auto) 87.7 % (37.0-80.0); Nucleated Red Blood Cells % 0.1 %; Red Blood Cells 5.41 10^6/uL (4.0-5.20); Red Cell Distribution Width 13.9 % (11.8-14.3); White Blood Cell 17.9 10^3/uL (4.4-10.8)
[2023-09-27 07:32] LABS: Alanine Aminotransferase 31 U/L (7-40); Albumin 5.2 g/dL (3.2-4.8); Alkaline Phosphatase 145 U/L (46-116); Anion Gap 12 (5-15); Aspartate Aminotransferase 24 U/L (13-40); BUN/Creatinine Ratio 22.9 (10.0-20.0); Bilirubin, Total 0.8 mg/dL (0.2-1.0); Blood Urea Nitrogen 19 mg/dL (9-23); Calcium 9.9 mg/dL (8.7-10.4); Carbon Dioxide 22 mmol/L (20-30); Chloride 101 mmol/L (98-107); Glucose 207 mg/dL (74-106); Lipase 30 U/L (12-53); Magnesium 1.8 mg/dL (1.6-2.6); Sodium 135 mmol/L (136-145)
[2023-09-27] MEDS ORDERED: PIPERACILLIN-TAZOB 3.375GM 100 ML IV ONE (09:00)
[2023-09-27] MEDS ORDERED: ALBUTEROL SULF HFA 90MCG INH 200DOSE IN PRN (09:45)
[2023-09-27] MEDS ORDERED: DEXTROSE (50%) 50ML SYRG IV PRN (09:45)
[2023-09-27] MEDS ORDERED: DOCUSATE SOD 100 MG CAP PO PRN (09:45)
[2023-09-27] MEDS ORDERED: HYDROmorphone HCL 2 MG/ML VL/or syr IV PRN (10:00)
[2023-09-27] MEDS ORDERED: PATIENTS OWN MEDICATION (Spironolactone 1 TAB) PO SCH (10:00)
[2023-09-27] MEDS: SODIUM CHLORIDE 0.9% 1,000 ML IV SCH ×2 (10:20→18:05)
[2023-09-27] MEDS: PANTOPRAZOLE 40 MG/10 ML VIAL INJ IV SCH (10:20)
[2023-09-27 11:32] VITALS: BP 178/109; PULSE 107; RESP 18; TEMP 97.9; O2SAT 93
[2023-09-27 11:32] LABS: Urine Bacteria NONE SEEN /hpf (None Seen); Urine Blood Negative /uL (Negative); Urine Clarity Clear (Clear); Urine Hyaline Cast MOD /lpf (0 - 2); Urine Mucus FEW (None Seen); Urine Protein, UAD 2+ (Negative); Urine Specific Gravity 1.014 (1.001-1.035); Urine Urobilinogen Normal (Negative); Urine WBC 5 /hpf (0 - 5)
[2023-09-27 11:33] LABS: Urine Color Straw (Yellow)
[2023-09-27] MEDS: ACCU-CHEK COMFORT CURVE STRIP VI SCH ×3 (11:43→21:32)
[2023-09-27] MEDS: DICYCLOMINE HCL 10 MG CAP PO SCH ×4 (12:00→21:41)
[2023-09-27] MEDS ORDERED: ALBUTEROL MEDNEB 2.5 mg/3ml NEB NEB PRN (12:15)
[2023-09-27] MEDS: InsuLIN REG 1unit/0.01ml Soln (100units/ml) SC SCH ×3 (12:21→21:32)
[2023-09-27] MEDS: SUCRALFATE 1 GM TAB PO SCH ×2 (13:40→21:31)
[2023-09-27 18:32] VITALS: PULSE 94; RESP 18; O2SAT 95
[2023-09-27 18:33] VITALS: BP 187/111; PULSE 94; RESP 22; TEMP 97.8; O2SAT 94
[2023-09-27] MEDS: ONDANSETRON HCL 4 MG/2 ML VIAL IV PRN ×2 (18:35→21:32)
[2023-09-27] MEDS: MORPHINE SULFATE INJ 2 MG/ml SYRG IV PRN ×2 (18:36→21:37)
[2023-09-27] MEDS: METOPROLOL TARTRATE 25 MG TAB PO SCH (19:49)
[2023-09-27 20:00] VITALS: PULSE 94; RESP 18; O2SAT 95
[2023-09-27 22:00] VITALS: BP 173/77; PULSE 94; RESP 18; TEMP 98.6; O2SAT 95
[2023-09-27] MEDS ORDERED: hydrALAZINE HCL 20 MG/ML VL IV ONE (23:30)
[2023-09-28] VITALS (10 sets, daily range): BP systolic 128–174; BP diastolic 61–98; PULSE 81–114; RESP 16–20; TEMP 98.3–98.7; O2SAT 93–100
[2023-09-28] MEDS: SODIUM CHLORIDE 0.9% 1,000 ML IV SCH ×2 (02:25→10:25)
[2023-09-28] MEDS: ONDANSETRON HCL 4 MG/2 ML VIAL IV PRN ×4 (04:13→19:18)
[2023-09-28] MEDS: MORPHINE SULFATE INJ 2 MG/ml SYRG IV PRN ×4 (04:14→19:20)
[2023-09-28] MEDS ORDERED: dilTIAZem 25 MG/5 ML VIAL IV ONE (06:00)
[2023-09-28] MEDS: InsuLIN REG 1unit/0.01ml Soln (100units/ml) SC SCH ×4 (06:06→21:32)
[2023-09-28] MEDS: SUCRALFATE 1 GM TAB PO SCH ×3 (06:15→21:30)
[2023-09-28] MEDS: ACCU-CHEK COMFORT CURVE STRIP VI SCH ×4 (06:15→21:32)
[2023-09-28] MEDS: DICYCLOMINE HCL 10 MG CAP PO SCH ×4 (06:15→21:30)
[2023-09-28 06:57] LABS: Basophils # (auto) 0 10 ^3/uL (0-0.2); Basophils % (auto) 0.1 % (0.0-2.0); Eosinophils # (auto) 0 10 ^3/uL (0-0.8); Hematocrit 48.7 % (36.0-46.0); Hemoglobin 16.4 g/dL (12.2-16.2); Lymphocytes % (auto) 9.6 % (10.0-50.0); Mean Corpuscular Hemoglobin 29.3 pg (28.0-32.0); Mean Corpuscular Hgb Conc. 33.7 g/dL (32.0-36.0); Mean Corpuscular Volume 87.1 fL (80.0-100.0); Monocytes # (auto) 1.1 10 ^3/uL (0-1.3); Monocytes % (auto) 5.1 % (0.0-12.0); Neutrophils # (auto) 18.1 10 ^3/uL (1.6-8.6); Neutrophils % (auto) 85.2 % (37.0-80.0); Nucleated Red Blood Cells % 0.2 %; Red Blood Cells 5.58 10^6/uL (4.0-5.20); Red Cell Distribution Width 13.7 % (11.8-14.3); White Blood Cell 21.2 10^3/uL (4.4-10.8)
[2023-09-28] MEDS: METOPROLOL TARTRATE 25 MG TAB PO SCH ×2 (07:02→20:34)
[2023-09-28 07:30] LABS: Alanine Aminotransferase 28 U/L (7-40); Albumin 4.8 g/dL (3.2-4.8); Alkaline Phosphatase 114 U/L (46-116); Anion Gap 9 (5-15); Aspartate Aminotransferase 28 U/L (13-40); BUN/Creatinine Ratio 23.6 (10.0-20.0); Bilirubin, Total 0.7 mg/dL (0.2-1.0); Blood Urea Nitrogen 13 mg/dL (9-23); Calcium 9.5 mg/dL (8.5-10.1); Carbon Dioxide 27 mmol/L (20-30); Chloride 98 mmol/L (98-107); Glucose 122 mg/dL (74-106); Potassium 3.1 mmol/L (3.5-5.1); Sodium 134 mmol/L (136-145); Total Protein 7.7 g/dL (5.7-8.2)
[2023-09-28] MEDS: SPIRONOLACTONE 25 MG TAB PO SCH (08:56)
[2023-09-28] MEDS: PANTOPRAZOLE 40 MG/10 ML VIAL INJ IV SCH (08:56)
[2023-09-28] MEDS ORDERED: POTASSIUM EFFERVESENT TAB 25 MEQ PO ONE (09:45)
[2023-09-28] MEDS: hydrALAZINE HCL 20 MG/ML VL IV PRN (17:24)
[2023-09-29] VITALS (11 sets, daily range): BP systolic 112–167; BP diastolic 77–116; PULSE 90–114; RESP 16–20; TEMP 98.1–98.7; O2SAT 93–100
[2023-09-29] MEDS: ONDANSETRON HCL 4 MG/2 ML VIAL IV PRN ×5 (01:00→21:33)
[2023-09-29] MEDS: MORPHINE SULFATE INJ 2 MG/ml SYRG IV PRN ×5 (01:01→21:39)
[2023-09-29] MEDS: DICYCLOMINE HCL 10 MG CAP PO SCH ×4 (05:54→21:29)
[2023-09-29] MEDS: SUCRALFATE 1 GM TAB PO SCH ×3 (05:54→21:29)
[2023-09-29] MEDS: ACCU-CHEK COMFORT CURVE STRIP VI SCH ×4 (06:11→21:29)
[2023-09-29] MEDS: InsuLIN REG 1unit/0.01ml Soln (100units/ml) SC SCH ×4 (06:14→21:33)
[2023-09-29 06:53] LABS: Chloride 97 mmol/L (98-107); Potassium 3.3 mmol/L (3.5-5.1); Sodium 133 mmol/L (136-145)
[2023-09-29 06:54] LABS: Anion Gap 9 (5-15); Calcium 9.2 mg/dL (8.7-10.4); Carbon Dioxide 27 mmol/L (20-30)
[2023-09-29 06:56] LABS: Basophils # (auto) 0 10 ^3/uL (0-0.2); Basophils % (auto) 0.1 % (0.0-2.0); Eosinophils # (auto) 0 10 ^3/uL (0-0.8); Hematocrit 47.7 % (36.0-46.0); Hemoglobin 16.2 g/dL (12.2-16.2); Lymphocytes # (auto) 2.4 10 ^3/uL (0.4-5.4); Lymphocytes % (auto) 14.2 % (10.0-50.0); Mean Corpuscular Hemoglobin 29.8 pg (28.0-32.0); Mean Corpuscular Hgb Conc. 33.9 g/dL (32.0-36.0); Mean Corpuscular Volume 87.8 fL (80.0-100.0); Monocytes # (auto) 1.1 10 ^3/uL (0-1.3); Monocytes % (auto) 6.5 % (0.0-12.0); Neutrophils # (auto) 13.4 10 ^3/uL (1.6-8.6); Neutrophils % (auto) 79.2 % (37.0-80.0); Nucleated Red Blood Cells % 0.3 %; Red Blood Cells 5.44 10^6/uL (4.0-5.20); Red Cell Distribution Width 14.1 % (11.8-14.3); White Blood Cell 16.9 10^3/uL (4.4-10.8)
[2023-09-29 06:59] LABS: BUN/Creatinine Ratio 24.2 (10.0-20.0); Blood Urea Nitrogen 15 mg/dL (9-23); Glucose 114 mg/dL (74-106)
[2023-09-29] MEDS: hydrALAZINE HCL 20 MG/ML VL IV PRN (07:04)
[2023-09-29] MEDS: IPRATROPIUM BROM 0.5 MG/2.5ML INH SOL NEB SCH ×3 (07:05→18:00)
[2023-09-29] MEDS: ALBUTEROL MEDNEB 2.5 mg/3ml NEB NEB SCH ×3 (07:05→18:00)
[2023-09-29 07:24] LABS: CRP High Sensitivity 0.13 mg/dL (<1.0)
[2023-09-29 07:25] LABS: Phosphorus 2.1 mg/dL (2.4-5.1)
[2023-09-29] MEDS: METOPROLOL TARTRATE 25 MG TAB PO SCH ×2 (08:39→20:18)
[2023-09-29] MEDS ORDERED: POTASSIUM EFFERVESENT TAB 25 MEQ PO ONE (09:45)
[2023-09-29] MEDS: PANTOPRAZOLE 40 MG/10 ML VIAL INJ IV SCH (10:30)
[2023-09-29] MEDS: SPIRONOLACTONE 25 MG TAB PO SCH (10:32)
[2023-09-29 21:11] LABS: COVID19 ANTIGEN SOFIA FIA NEGATIVE (NEGATIVE)
[2023-09-30] VITALS (10 sets, daily range): BP systolic 110–167; BP diastolic 65–93; PULSE 89–94; RESP 14–18; TEMP 97.6–98.6; O2SAT 92–100
[2023-09-30] MEDS: ONDANSETRON HCL 4 MG/2 ML VIAL IV PRN ×4 (02:24→20:10)
[2023-09-30] MEDS: MORPHINE SULFATE INJ 2 MG/ml SYRG IV PRN ×3 (02:30→20:19)
[2023-09-30] MEDS: ACCU-CHEK COMFORT CURVE STRIP VI SCH ×2 (06:17→11:30)
[2023-09-30] MEDS: SUCRALFATE 1 GM TAB PO SCH ×3 (06:17→21:19)
[2023-09-30] MEDS: DICYCLOMINE HCL 10 MG CAP PO SCH ×4 (06:17→21:19)
[2023-09-30] MEDS: InsuLIN REG 1unit/0.01ml Soln (100units/ml) SC SCH ×2 (06:22→11:30)
[2023-09-30] MEDS: IPRATROPIUM BROM 0.5 MG/2.5ML INH SOL NEB SCH ×3 (06:50→18:00)
[2023-09-30] MEDS: ALBUTEROL MEDNEB 2.5 mg/3ml NEB NEB SCH ×3 (06:50→18:00)
[2023-09-30] MEDS: PANTOPRAZOLE 40 MG/10 ML VIAL INJ IV SCH (09:36)
[2023-09-30] MEDS: SPIRONOLACTONE 25 MG TAB PO SCH (09:36)
[2023-09-30] MEDS: METOPROLOL TARTRATE 25 MG TAB PO SCH ×2 (09:37→20:05)
[2023-09-30 11:23] LABS: Basophils # (auto) 0 10 ^3/uL (0-0.2); Basophils % (auto) 0.1 % (0.0-2.0); Eosinophils # (auto) 0 10 ^3/uL (0-0.8); Eosinophils % (auto) 0.2 % (0.0-7.0); Hematocrit 44.1 % (36.0-46.0); Hemoglobin 14.9 g/dL (12.2-16.2); Lymphocytes # (auto) 2.2 10 ^3/uL (0.4-5.4); Lymphocytes % (auto) 13.7 % (10.0-50.0); Mean Corpuscular Hemoglobin 29.6 pg (28.0-32.0); Mean Corpuscular Hgb Conc. 33.8 g/dL (32.0-36.0); Mean Corpuscular Volume 87.5 fL (80.0-100.0); Monocytes # (auto) 1.4 10 ^3/uL (0-1.3); Monocytes % (auto) 8.4 % (0.0-12.0); Neutrophils # (auto) 12.6 10 ^3/uL (1.6-8.6); Neutrophils % (auto) 77.6 % (37.0-80.0); Nucleated Red Blood Cells % 0.1 %; Red Blood Cells 5.04 10^6/uL (4.0-5.20); Red Cell Distribution Width 13.5 % (11.8-14.3); White Blood Cell 16.3 10^3/uL (4.4-10.8)
[2023-09-30 11:36] LABS: Chloride 96 mmol/L (98-107); Potassium 3.1 mmol/L (3.5-5.1); Sodium 132 mmol/L (136-145)
[2023-09-30 11:37] LABS: Anion Gap 7 (5-15); Carbon Dioxide 29 mmol/L (20-30)
[2023-09-30 11:42] LABS: Glucose 105 mg/dL (74-106)
[2023-09-30 11:43] LABS: BUN/Creatinine Ratio 21.9 (10.0-20.0); Blood Urea Nitrogen 16 mg/dL (9-23)
[2023-09-30] MEDS ORDERED: POTASSIUM EFFERVESENT TAB 25 MEQ PO ONE (12:30)
[2023-09-30] MEDS ORDERED: LOSARTAN POTASSIUM 25 MG TAB PO ONE (12:30)
[2023-09-30 13:11] LABS: Urine Bacteria FEW /hpf (None Seen); Urine Blood Negative /uL (Negative); Urine Clarity Clear (Clear); Urine Color Yellow (Yellow); Urine Mucus FEW (None Seen); Urine Protein, UAD TRACE (Negative); Urine Specific Gravity 1.027 (1.001-1.035); Urine WBC 4 /hpf (0 - 5); Urine pH 6.5 (5.0-8.0)
[2023-09-30] MEDS ORDERED: HYDROcodone-ACET 5/325MG TAB PO PRN (22:00)
[2023-10-01 05:00] VITALS: BP 107/50; PULSE 81; RESP 18; TEMP 98; O2SAT 94
[2023-10-01 05:41] LABS: Basophils # (auto) 0 10 ^3/uL (0-0.2); Basophils % (auto) 0.4 % (0.0-2.0); Eosinophils # (auto) 0.1 10 ^3/uL (0-0.8); Eosinophils % (auto) 0.7 % (0.0-7.0); Hematocrit 43.1 % (36.0-46.0); Hemoglobin 14.4 g/dL (12.2-16.2); Lymphocytes # (auto) 3.9 10 ^3/uL (0.4-5.4); Mean Corpuscular Hemoglobin 29.6 pg (28.0-32.0); Mean Corpuscular Hgb Conc. 33.4 g/dL (32.0-36.0); Mean Corpuscular Volume 88.7 fL (80.0-100.0); Monocytes # (auto) 0.9 10 ^3/uL (0-1.3); Monocytes % (auto) 7.2 % (0.0-12.0); Neutrophils # (auto) 8.1 10 ^3/uL (1.6-8.6); Neutrophils % (auto) 61.7 % (37.0-80.0); Nucleated Red Blood Cells % 0.1 %; Red Blood Cells 4.86 10^6/uL (4.0-5.20); Red Cell Distribution Width 13.7 % (11.8-14.3); White Blood Cell 13.1 10^3/uL (4.4-10.8)
[2023-10-01 05:43] LABS: Anion Gap 5 (5-15); Calcium 8.8 mg/dL (8.7-10.4); Carbon Dioxide 30 mmol/L (20-30); Chloride 99 mmol/L (98-107); Potassium 3.2 mmol/L (3.5-5.1); Sodium 134 mmol/L (136-145)
[2023-10-01 05:49] LABS: BUN/Creatinine Ratio 25.4 (10.0-20.0); Blood Urea Nitrogen 15 mg/dL (9-23); Glucose 95 mg/dL (74-106)
[2023-10-01] MEDS: DICYCLOMINE HCL 10 MG CAP PO SCH ×2 (05:50→12:47)
[2023-10-01] MEDS: SUCRALFATE 1 GM TAB PO SCH ×2 (05:50→14:00)
[2023-10-01] MEDS: ALBUTEROL MEDNEB 2.5 mg/3ml NEB NEB SCH ×2 (06:00→12:00)
[2023-10-01] MEDS: IPRATROPIUM BROM 0.5 MG/2.5ML INH SOL NEB SCH ×2 (06:00→12:00)
[2023-10-01] MEDS ORDERED: POTASSIUM CHL 20 Meq TABLET PO ONE (07:45)
[2023-10-01 08:00] VITALS: BP 131/74; PULSE 91; RESP 20; TEMP 98.6; O2SAT 95
[2023-10-01] MEDS: ONDANSETRON HCL 4 MG/2 ML VIAL IV PRN (08:23)
[2023-10-01] MEDS: METOPROLOL TARTRATE 25 MG TAB PO SCH (08:24)
[2023-10-01 08:39] VITALS: BP 131/74; PULSE 91; RESP 20; TEMP 98.6; O2SAT 95
[2023-10-01] MEDS ORDERED: SUCR1SUS26 PO (09:27)
[2023-10-01] MEDS ORDERED: ZOFR4T PO (09:27)
[2023-10-01] MEDS ORDERED: METO25TA36 PO (09:27)
[2023-10-01] MEDS ORDERED: PANT40TA2 PO (09:27)
[2023-10-01] MEDS ORDERED: LOSA25TA15 PO (09:27)
[2023-10-01] MEDS ORDERED: LOSARTAN POTASSIUM 25 MG TAB PO SCH (10:00)
[2023-10-01] MEDS: PANTOPRAZOLE 40 MG/10 ML VIAL INJ IV SCH (10:18)
[2023-10-01] MEDS: SPIRONOLACTONE 25 MG TAB PO SCH (10:18)
[2023-10-01 13:08] VITALS: BP 131/74; PULSE 91; RESP 20; TEMP 98.6; O2SAT 95
[2023-10-01 13:49] VITALS: BP 110/65; PULSE 82; RESP 19; TEMP 99; O2SAT 94
== END 2023-10-01 15:00 | disposition home or self-care (01) | DRG 392 ==
LOC: EEVIPCON 05:50 → ER 05:50 → OVERFLOW 09:43 → CENTRAL 10:08
PROVIDERS: ADMIT Internal Medicine Geriatric Medicine; ATTEND Student in an Organized Health Care Education/Training Program
DX: K52.9 Noninfective gastroenteritis and colitis, unspecified (principal); R65.10 Systemic inflammatory response syndrome (SIRS) of non-infectious origin without acute organ dysfunction; E87.1 Hypo-osmolality and hyponatremia; E86.0 Dehydration; K76.0 Fatty (change of) liver, not elsewhere classified; I10 Essential (primary) hypertension; D72.829 Elevated white blood cell count, unspecified; J44.89 Other specified chronic obstructive pulmonary disease; E78.5 Hyperlipidemia, unspecified; I11.9 Hypertensive heart disease without heart failure; Z20.822 Contact with and (suspected) exposure to COVID-19; E27.8 Other specified disorders of adrenal gland; E87.6 Hypokalemia; K42.9 Umbilical hernia without obstruction or gangrene; K59.00 Constipation, unspecified; K21.9 Gastro-esophageal reflux disease without esophagitis; K29.70 Gastritis, unspecified, without bleeding; Z98.51 Tubal ligation status; Z90.49 Acquired absence of other specified parts of digestive tract
CPT/HCPCS: 36415; 71045; 74176; 80048; 80053; 81001; 82962; 83036; 83605; 83690; 83735; 84100; 84484; 85025; 86141; 87040; 87426; 93005; 94640; 96361; 96365; 96375; C9113; G0378; J1815; J2405; J2543

== ENCOUNTER → 2023-12-26 | Outpatient (CLI) | payer BC ==
[~2023-12-26] MED LIST changes: +LOSA25TA15 PO; +METO25TA36 PO; -METR-344 PO; +PANT40TA2 PO; -PRED20TA2 PO; +SUCR1SUS26 PO; +ZOFR4T PO
== END | disposition home or self-care (01) ==
LOC: LAB 15:58
PROVIDERS: ATTEND Internal Medicine
DX: K21.9 Gastro-esophageal reflux disease without esophagitis (principal); E55.9 Vitamin D deficiency, unspecified; R10.9 Unspecified abdominal pain
CPT/HCPCS: 82306; 87177

== ENCOUNTER 2024-04-05 09:46 | Day surgery (SDC) | payer BC ==
[2024-04-01 11:05] LABS: Basophils # (auto) 0.1 10 ^3/uL (0-0.2); Eosinophils # (auto) 0.6 10 ^3/uL (0-0.8); Eosinophils % (auto) 7.7 % (0.0-7.0); Hematocrit 41.4 % (36.0-46.0); Lymphocytes # (auto) 2.5 10 ^3/uL (0.4-5.4); Lymphocytes % (auto) 31.9 % (10.0-50.0); Mean Corpuscular Hemoglobin 29.6 pg (28.0-32.0); Mean Corpuscular Hgb Conc. 33.8 g/dL (32.0-36.0); Mean Corpuscular Volume 87.6 fL (80.0-100.0); Monocytes # (auto) 0.5 10 ^3/uL (0-1.3); Monocytes % (auto) 6.2 % (0.0-12.0); Neutrophils # (auto) 4.2 10 ^3/uL (1.6-8.6); Neutrophils % (auto) 53.2 % (37.0-80.0); Nucleated Red Blood Cells % 0.1 %; Red Blood Cells 4.73 10^6/uL (4.0-5.20); Red Cell Distribution Width 13.7 % (11.8-14.3); White Blood Cell 7.9 10^3/uL (4.4-10.8)
[2024-04-01 11:20] LABS: INR 0.96 (0.9-1.15); Prothrombin Time 10.2 sec (9.3-11.8)
[2024-04-01 11:42] LABS: Alanine Aminotransferase 29 U/L (7-40); Albumin 4.4 g/dL (3.2-4.8); Alkaline Phosphatase 133 U/L (46-116); Anion Gap 2 (5-15); Aspartate Aminotransferase 19 U/L (13-40); BUN/Creatinine Ratio 24.6 (10.0-20.0); Blood Urea Nitrogen 15 mg/dL (9-23); Calcium 9.6 mg/dL (8.5-10.1); Carbon Dioxide 30 mmol/L (20-30); Chloride 105 mmol/L (98-107); Glucose 88 mg/dL (74-106); Potassium 4.2 mmol/L (3.5-5.1); Sodium 137 mmol/L (136-145)
[2024-04-01 11:43] LABS: Bilirubin, Total 0.7 mg/dL (0.2-1.0)
[~2024-04-05] VITALS: Ht 149.9 cm; Wt 72.6 kg
[~2024-04-05 09:46] MED LIST changes: -ALBUAER3 IN; -BUDE1AER4 INH; -HYDR-4902 PO; +LACT10SO3 PO; -LOSA25TA15 PO; -METO25TA36 PO; -SUCR1SUS26 PO; -SUCR1TAB PO; -ZOFR4T PO
[2024-04-05] MEDS ORDERED: MIDAZOLAM HCL 5 MG/ML-1ML VIAL ONE (10:53)
[2024-04-05] MEDS ORDERED: SODIUM CHLORIDE LOCK 0 ML ONE (10:53)
[2024-04-05] MEDS ORDERED: fentaNYL CITRATE 100 MCG/2 ML VL ONE (10:54)
[2024-04-05] MEDS ORDERED: diphenhdrAMINE HCL 50 MG/1 ML VL ONE (10:54)
[2024-04-05] MEDS ORDERED: KETAMINE 50mg/ML 1ml syringe ONE (12:08)
[2024-04-05] MEDS ORDERED: MIDAZOLAM HCL 2MG/2ML 2ml VIAL (1mg/ml) ONE (12:08)
[2024-04-05] MEDS ORDERED: PROPOFOL 10 MG/ML 20 ML IV ONE (12:09)
[2024-04-05] MEDS ORDERED: ONDANSETRON HCL 4 MG/2 ML VIAL ONE (12:09)
[2024-04-05] MEDS ORDERED: GLYCOPYRROLATE 0.2 MG/ML 1ML VIAL ONE (12:09)
[2024-04-05] MEDS ORDERED: HYDROmorphone HCL 2 MG/ML VL/or syr IV PRN (12:30)
[2024-04-05] MEDS ORDERED: ONDANSETRON HCL 4 MG/2 ML VIAL IV ONE (12:30)
[2024-04-05 13:06] VITALS: TEMP 97.1; O2SAT 100
[2024-04-05 13:33] VITALS: BP 152/75; PULSE 78; RESP 13; O2SAT 99
== END 2024-04-05 13:38 | disposition home or self-care (01) ==
LOC: GI 09:46
PROVIDERS: ATTEND Internal Medicine Gastroenterology
DX: R10.9 Unspecified abdominal pain (principal); K62.1 Rectal polyp; K62.89 Other specified diseases of anus and rectum; K57.30 Diverticulosis of large intestine without perforation or abscess without bleeding; K64.0 First degree hemorrhoids; K21.9 Gastro-esophageal reflux disease without esophagitis; I10 Essential (primary) hypertension; J45.909 Unspecified asthma, uncomplicated; E66.9 Obesity, unspecified; Z68.32 Body mass index [BMI] 32.0-32.9, adult; Z79.899 Other long term (current) drug therapy; Z98.890 Other specified postprocedural states
CPT/HCPCS: 36415; 45380; 80053; 85025; 85610; 85730; 88305; J2250; J2405; J2704; J7030

== ENCOUNTER 2024-08-14 10:12 | Emergency (ER) | payer BC ==
[~2024-08-14] VITALS: Ht 149.9 cm; Wt 76.1 kg
[2024-08-14 11:11] LABS: Urine Bacteria None Seen /hpf (None Seen)
[2024-08-14 11:21] LABS: Basophils # (auto) 0.1 10 ^3/uL (0-0.2); Basophils % (auto) 0.6 % (0.0-2.0); Eosinophils # (auto) 0.3 10 ^3/uL (0-0.8); Eosinophils % (auto) 3.9 % (0.0-7.0); Hematocrit 42.3 % (36.0-46.0); Hemoglobin 14.4 g/dL (12.2-16.2); Lymphocytes # (auto) 2.3 10 ^3/uL (0.4-5.4); Lymphocytes % (auto) 26.5 % (10.0-50.0); Mean Corpuscular Hemoglobin 29.7 pg (28.0-32.0); Mean Corpuscular Volume 87.4 fL (80.0-100.0); Monocytes # (auto) 0.6 10 ^3/uL (0-1.3); Neutrophils # (auto) 5.3 10 ^3/uL (1.6-8.6); Nucleated Red Blood Cells % 0.1 %; Platelet Count (auto) 306 10^3/uL (140-450); Red Blood Cells 4.84 10^6/uL (4.0-5.20); Red Cell Distribution Width 13.6 % (11.8-14.3); White Blood Cell 8.5 10^3/uL (4.4-10.8)
[2024-08-14 11:41] LABS: Alanine Aminotransferase 27 U/L (7-40); Albumin 4.7 g/dL (3.2-4.8); Alkaline Phosphatase 120 U/L (46-116); Anion Gap 7 (5-15); Aspartate Aminotransferase 19 U/L (13-40); Blood Urea Nitrogen 18 mg/dL (9-23); Calcium 9.7 mg/dL (8.7-10.4); Carbon Dioxide 27 mmol/L (20-31); Chloride 103 mmol/L (98-107); Glucose 93 mg/dL (74-106); Potassium 3.8 mmol/L (3.5-5.1); Sodium 137 mmol/L (136-145)
[2024-08-14 11:42] LABS: Bilirubin, Total 0.7 mg/dL (0.2-1.0); Total Protein 7.4 g/dL (5.7-8.2)
[2024-08-14 11:45] VITALS: BP 139/73; PULSE 81; RESP 18; TEMP 97.3; O2SAT 94
[2024-08-14 11:46] LABS: Urine Blood Negative /uL (Negative); Urine Clarity Turbid (Clear); Urine Color Yellow (Yellow); Urine Mucus FEW (None Seen); Urine Protein, UAD 1+ (Negative); Urine Specific Gravity 1.034 (1.001-1.035); Urine Urobilinogen Normal (Negative); Urine WBC 5 /hpf (0 - 5); Urine pH 5.5 (5.0-9.0)
[2024-08-14] MEDS: ONDANSETRON HCL 4 MG/2 ML VIAL IV ONE (13:19)
[2024-08-14] MEDS: KETOROLAC TROMETH 30 MG/ML 1ML VIAL IV ONE (13:19)
[2024-08-14] MEDS ORDERED: IBUP-1455 PO (14:14)
[2024-08-14] MEDS ORDERED: METH-1181 PO (14:14)
[2024-08-14] MEDS ORDERED: GABA300T4 PO (14:14)
[2024-08-14] MEDS ORDERED: ZOFR4T PO (14:14)
== END 2024-08-14 14:27 | disposition home or self-care (01) ==
LOC: ER 10:12
DX: M54.9 Dorsalgia, unspecified (principal); R10.9 Unspecified abdominal pain; I10 Essential (primary) hypertension; E78.5 Hyperlipidemia, unspecified; J45.909 Unspecified asthma, uncomplicated; K21.9 Gastro-esophageal reflux disease without esophagitis; K43.9 Ventral hernia without obstruction or gangrene; Z79.899 Other long term (current) drug therapy; Z90.49 Acquired absence of other specified parts of digestive tract; Z98.51 Tubal ligation status; Z98.890 Other specified postprocedural states
CPT/HCPCS: 36415; 74176; 80053; 81001; 85025; 96374; 96375; 99285; J1885; J2405